=== PATIENT | male | born 1960 | race African-American/Black ===

== ENCOUNTER 2020-11-06 08:38 | Outpatient (REF) | payer OTHER, SELFPAY ==
[2020-11-06 11:13] LABS: MANUAL DIFF FLAG NO
[2020-11-06 11:38] LABS: Basophils Percent Auto 0.2 % (0-2); Eosinophils Absolute Auto 0.1 X10*3/uL (0.0-0.4); Eosinophils Percent Auto 1.9 % (0-4); Hematocrit 42.7 % (42-52); Hemoglobin 13.7 g/dl (14.0-18.0); Imm Gran Abs Auto 0.01 X10*3/uL (0.00-0.03); Imm Gran Pct Auto 0.2 % (0.0-0.4); Lymphocytes Absolute Auto 1.3 X10*3/uL (1.2-4.9); Lymphocytes Percent Auto 26.3 % (20-40); Mean Corpuscular HGB Conc 32.1 g/dl (31.0-36.0); Mean Corpuscular Volume 93.6 fL (80-98); Mean Platelet Volume 9.8 fL (9.4-12.4); Monocytes Absolute Auto 0.5 X10*3/uL (0.1-1.2); Monocytes Percent Auto 9.4 % (2-11); Platelet Count 178 X10*3/uL (160-400); Red Blood Count 4.56 X10*6/uL (4.60-5.80); Red Cell Distribution Width 12.4 % (11.0-16.0); White Blood Count 4.8 X10*3/uL (4.8-10.8)
[2020-11-06 11:40] LABS: Glucose Urine UA NEG (NEG); Leukocyte Esterase Urine NEG (NEG); Nitrite Urine NEG (NEG); Specific Gravity - Urine 1.025 (1.005-1.025); Urine Blood NEG (NEG); Urine Ketones NEG (NEG); Urine Protein NEG (NEG-TRACE)
[2020-11-06 11:49] LABS: Estimated Average Glucose 137 mg/dL; Hemoglobin A1c % 6.4 %
[2020-11-06 11:54] LABS: Alanine Aminotransferase 22 U/L (0-40); Albumin Level 4.5 g/dL (3.5-5.0); Alkaline Phosphatase 106 U/L (39-117); Anion Gap 13 (12-20); Aspartate Amino Transferase 21 U/L (5-37); Bilirubin Total 0.5 mg/dL (0.0-1.0); Blood Urea Nitrogen 15 mg/dL (9-16); Calcium 8.8 mg/dL (8.4-10.2); Carbon Dioxide 26 mmol/L (22-29); Chloride 107 mmol/L (96-108); Cholesterol 158 mg/dL; Estimated Glomerular Filt Rate > 60; Glucose Fasting 112 mg/dL (60-99); HDL Cholesterol 59 mg/dL; LDL Cholesterol Calculated 86 mg/dl; Potassium 4.1 mmol/L (3.3-5.1); Sodium 142 mmol/L (135-145); Total Protein 7.4 g/dL (6.5-8.0); Triglycerides 65 mg/dL
[2020-11-06 11:56] LABS: Color Urine YELLOW
[2020-11-06 11:57] LABS: Appearance Urine CLEAR
[2020-11-06 12:09] LABS: RBC Urine 0 /HPF (0); WBC Urine 0 /HPF (0-4)
[2020-11-06 12:17] LABS: Prostate Specific Antigen 2.01 ng/mL (<0.05-4.0); Thyroid Stimulating Hormone 1.62 uIU/mL (0.32-4.0); Vitamin D 25-OH Total 37.3 ng/mL (>30)
[2020-11-06 12:19] LABS: Creatinine Urine 126.47 mg/dL; Microalbumin Urine < 5.0 mg/L
== END 2020-11-06 08:39 | disposition home or self-care (01) ==
LOC: HO.HMGCLDS 08:38
PROVIDERS: PCP Internal Medicine; Visit Provider Internal Medicine
DX: I10 Essential (primary) hypertension (principal); E78.00 Pure hypercholesterolemia, unspecified; J45.30 Mild persistent asthma, uncomplicated; E55.9 Vitamin D deficiency, unspecified; E66.09 Other obesity due to excess calories; Z68.39 Body mass index [BMI] 39.0-39.9, adult; Z12.5 Encounter for screening for malignant neoplasm of prostate
CPT/HCPCS: 36415; 80053; 80061; 81001; 82043; 82306; 83036; 84153; 84443; 85025

== ENCOUNTER 2021-06-26 08:04 | Outpatient (REF) | payer OTHER, SELFPAY ==
[2021-06-26 11:32] LABS: Appearance Urine CLEAR; Color Urine YELLOW; Glucose Urine UA NEG (NEG); Leukocyte Esterase Urine NEG (NEG); Nitrite Urine NEG (NEG); Urine Blood NEG (NEG); Urine Ketones NEG (NEG); Urine Protein NEG (NEG-TRACE)
[2021-06-26 11:37] LABS: MANUAL DIFF FLAG NO
[2021-06-26 11:42] LABS: Mucus Urine 1+ /LPF; Squamous Epithelial Cell Urine 1+ /LPF; WBC Urine 0 /HPF (0-4)
[2021-06-26 11:54] LABS: Basophils Percent Auto 0.2 % (0-2); Eosinophils Absolute Auto 0.1 X10*3/uL (0.0-0.4); Eosinophils Percent Auto 1.6 % (0-4); Hematocrit 42.4 % (42-52); Hemoglobin 13.4 g/dl (14.0-18.0); Imm Gran Abs Auto 0.01 X10*3/uL (0.00-0.03); Imm Gran Pct Auto 0.2 % (0.0-0.4); Mean Corpuscular HGB Conc 31.6 g/dl (31.0-36.0); Mean Corpuscular Hemoglobin 29.6 pg (27.0-33.0); Mean Corpuscular Volume 93.6 fL (80-98); Mean Platelet Volume 10.3 fL (9.4-12.4); Monocytes Absolute Auto 0.5 X10*3/uL (0.1-1.2); Monocytes Percent Auto 10.7 % (2-11); Neutrophils Absolute Auto 2.7 X10*3/uL (2.0-8.3); Neutrophils Percent Auto 63.3 % (45-73); Platelet Count 190 X10*3/uL (160-400); Red Blood Count 4.53 X10*6/uL (4.60-5.80); Red Cell Distribution Width 12.6 % (11.0-16.0); White Blood Count 4.3 X10*3/uL (4.8-10.8)
[2021-06-26 12:03] LABS: Alanine Aminotransferase 16 U/L (0-40); Albumin Level 4.4 g/dL (3.5-5.0); Alkaline Phosphatase 98 U/L (39-117); Anion Gap 12 (12-20); Aspartate Amino Transferase 23 U/L (5-37); Bilirubin Total 0.4 mg/dL (0.0-1.0); Blood Urea Nitrogen 11 mg/dL (9-16); Calcium 9.3 mg/dL (8.4-10.2); Carbon Dioxide 27 mmol/L (22-29); Chloride 106 mmol/L (96-108); Cholesterol 138 mg/dL; Estimated Glomerular Filt Rate > 60; Glucose Fasting 122 mg/dL (60-99); HDL Cholesterol 54 mg/dL; LDL Cholesterol Calculated 74 mg/dl; Potassium 4.7 mmol/L (3.3-5.1); Sodium 140 mmol/L (135-145); Total Protein 7.1 g/dL (6.5-8.0); Triglycerides 54 mg/dL
[2021-06-26 12:07] LABS: Creatinine Urine 216.72 mg/dL; Microalbum/Creatinine Ratio Ur 8.3 ug/mg cr
[2021-06-26 12:29] LABS: Estimated Average Glucose 126 mg/dL
== END 2021-06-26 08:05 | disposition home or self-care (01) ==
LOC: HO.HMGCLDS 08:04
PROVIDERS: PCP Internal Medicine; Visit Provider Internal Medicine
DX: Z00.00 Encounter for general adult medical examination without abnormal findings (principal); I10 Essential (primary) hypertension; E78.00 Pure hypercholesterolemia, unspecified; E55.9 Vitamin D deficiency, unspecified; E66.09 Other obesity due to excess calories
CPT/HCPCS: 36415; 80053; 80061; 81001; 82043; 83036; 85025

== ENCOUNTER → 2021-07-11 15:40 | Outpatient (BNVA) | payer OTHER, SELFPAY | PROVIDERS: PCP Internal Medicine; Visit Provider Internal Medicine ==

== ENCOUNTER → 2021-09-23 13:38 | Outpatient (BNVA) | payer OTHER, SELFPAY | PROVIDERS: PCP Internal Medicine; Visit Provider Internal Medicine ==

== ENCOUNTER → 2021-10-15 15:49 | Outpatient (REF) | payer OTHER, SELFPAY | LOC: HO.SL 15:49 | PROVIDERS: PCP Internal Medicine; Visit Provider Internal Medicine | DX: G47.33 Obstructive sleep apnea (adult) (pediatric) (principal); E66.9 Obesity, unspecified; Z99.89 Dependence on other enabling machines and devices | CPT/HCPCS: 95806 ==

== ENCOUNTER 2022-08-16 11:08 | Emergency (ER) | payer OTHER, SELFPAY ==
--- NOTE | ~2022-08-16 | CT_ITS ---
EXAMINATION: CT ABDOMEN AND PELVIS WITHOUT CONTRAST CLINICAL INFORMATION: Urinary retention. COMPARISON: None. TECHNIQUE: Multidetector volumetric imaging was performed from the superior aspect of the liver through the pubic symphysis. Sagittal and coronal reformatted images were obtained on the technologist's workstation. This CT examination was performed using dose optimization techniques as appropriate, variously including the following: *Automated exposure control *Adjustment of mA and/or kV according to patient size (this includes techniques or standardized protocols for targeted exams where dose is matched to indication/reason for exam; i.e. extremities or head) *Use of iterative reconstruction technique DLP: 928 mGy-cm FINDINGS: LUNG BASES: Small calcified granulomas in the right lung base image 174 and 118, series 4. No focal consolidation or pleural effusion. LIVER, GALLBLADDER, AND BILIARY TREE: Decreased attenuation of the liver parenchyma suggesting the presence of hepatic steatosis. There is a too small to characterize hypodensity in the left hepatic lobe (3:16). Normal appearance of the gallbladder. No biliary ductal dilatation. PANCREAS: Limited noncontrast examination, unremarkable. SPLEEN: Limited noncontrast examination, unremarkable. ADRENAL GLANDS: No adrenal nodule or mass. KIDNEYS AND URETERS: Limited noncontrast examination. No nephrolithiasis or hydronephrosis. No significant perinephric fat stranding. BLADDER: There is a Nevarez and balloon in place within a decompressed urinary bladder. Intraluminal air is nonspecific in the presence of the Nevarez. There are some questionable diffuse wall thickening but no significant perivesical fat stranding. GASTROINTESTINAL TRACT: The stomach and the small bowel are nondilated. Normal appendix. Colonic diverticulosis. No pericolonic inflammatory changes or evidence of bowel obstruction. ABDOMINAL WALL: No significant hernia is appreciated. LYMPH NODES: No pathologically enlarged lymph nodes. There are a few prominent nonspecific pelvic and retroperitoneal lymph nodes, for instance measuring 0.5 cm on the left pelvic sidewall (3:71), 0.8 cm on the right internal iliac region (3:72) and 0.6 cm at the level of the proximal right common iliac vasculature (3:56). VASCULAR: Limited noncontrast examination. There is scattered atherosclerotic disease. The abdominal aorta is of normal diameter. PELVIC VISCERA: Enlarged prostate measuring 6 cm transversely and 5.5 cm anterior to posterior. There is mild fat stranding in the pelvis adjacent to the seminal vesicles and prostate, for instance axial image 75 series 3. OSSEOUS STRUCTURES: Subtle increased sclerosis of the superior femoral heads bilaterally, suggesting some degree of avascular necrosis. Minimal heterogeneity of the right sacral alae adjacent to the SI joint, nonspecific, possibly degenerative. No destructive appearing osseous lesions. Multilevel degenerative changes of the spine with mild retrolisthesis of L5 on S1. CT/CT abdomen pelvis wo IV con IMPRESSION: Enlarged prostate with mild surrounding fat stranding, nonspecific. Recommend clinical correlation for prostatitis. This examination is not targeted for assessment of prostatic neoplasia. The urinary bladder is decompressed with a Nevarez in place. Intraluminal air is nonspecific in the setting of the Nevarez catheter. There is some questionable mild wall thickening, which could be seen with chronic outlet obstruction or cystitis, correlate clinically. There are a few prominent nonspecific pelvic and retroperitoneal lymph nodes. Attention on follow-up in subsequent examinations recommended. There is a too small to characterize hypodensity in the left hepatic lobe which statistically is favored to represent a cyst, however if clinically deemed appropriate, definite characterization could be obtained with an MR of the abdomen. Hepatic steatosis. Colonic diverticulosis but no findings to suspect acute diverticulitis.
[2022-08-16 11:10] VITALS: BP 144/83; PULSE 78; RESP 20; TEMP 36.6; O2SAT 98; BMI 32.3
--- NOTE | 2022-08-16 11:24 | ED_ITS ---
HPI - Male Genitourinary General Chief complaint: Urogenital-Male Stated complaint: painfull upon urination Time Seen by Provider: 08/16/22 11:24 Source: patient Mode of arrival: ambulatory Limitations: no limitations History of Present Illness HPI Narrative: 61 yo male at w/ PMHx of HTN and hyperlipidemia presenting complaining of urinary retention x2 days with suprapubic discomfort. Pt reports weak urinary stream beginning on around 11am with urinary output that has diminished consistently to no output since last night. Denies associated burning or pain on urination, blood in the urine, penile discharge, rashes or lesions in the genital area, recent infection, abd pain, lymph node enlargement, new sexual contacts, fevers, chills, back pain, or N/V/D. Denies known hx of BPH, prostatitis, or prostate cancer. Onset (ago): day(s) Related Data Home Medications Medication Instructions Recorded Confirmed albuterol sulfate 90 mcg/actuation 2 puff inhalation Q6H PRN 07/11/21 09/23/21 aerosol inhaler fluticasone 250 mcg-salmeterol 50 1 ea inhalation BID 07/11/21 09/23/21 mcg/dose blistr powdr for inhalation (Advair Diskus) simvastatin 40 mg tablet 40 mg PO BEDTIME 07/11/21 09/23/21 valsartan 160 mg tablet 160 mg PO DAILY 07/11/21 09/23/21 aspirin 81 mg tablet,delayed 81 mg PO DAILY 04/01/22 release loratadine 10 mg tablet (Claritin) 10 mg PO DAILY 04/01/22 Allergies Allergy/AdvReac Type Severity Reaction Status Date / Time Penicillins AdvReac Unknown unknown Verified 04/01/22 16:20 Review of Systems Review of Systems: Constitutional: No Fever, No Chills, No Fatigue, No Malaise ENT/Mouth: No Ear Pain, No Nasal Congestion, No sore throat, No Rhinorrhea, No Swallowing Difficulty Eyes: No Eye Pain, No Swelling, No Redness Cardiovascular: No Chest Pain, No SOB, No Edema, No Palpitations Respiratory: No Cough, No Sputum, No Dyspnea Gastrointestinal: No Nausea, No Vomiting, No Diarrhea, No Constipation, + Abdominal pain Genitourinary: No Dysuria, No Urinary Frequency, No Hematuria, No Urinary Incontinence/+retention, No Urgency, No Flank Pain, + Urinary Flow Changes Musculoskeletal: No joint pain, No Myalgias, No Joint Swelling Skin: No Skin Lesions, No rash Neuro: No Weakness, No Numbness, No Dizziness, No Headache Yes all other systems are reviewed and are negative Constitutional: Constitutional: Reports as per [facility] Past Medical History Attestation statement: The following information was validated with the patient. Medical History Asthma Obesity (BMI 30-39.9) KARLI on CPAP Thrush, oral Social History Social History Patient Tobacco Use Status: Never used Tobacco Advance Directives: No Advance Directives Information Provided: No Physical Exam Vital Signs: Vital Signs: Last Vital Signs Temp 98 F 08/16/22 11:10 Pulse 78 08/16/22 11:10 Resp 20 08/16/22 11:10 BP 144/83 H 08/16/22 11:10 Pulse Ox 98 08/16/22 11:10 O2 Del Method 08/16/22 11:10 BMI result Body Mass Index 32.3 Const: Other: Appears uncomfortable General: cooperative and healthy appearing Orientation/consciousness: patient oriented x3 Limitations: no limitations HEENT: Head: Yes normal to inspection Ears: hearing grossly normal bilaterally General nose exam: Normal external nose present Face and sinus: Yes normal facial exam Eyes: General: appearance normal, both eyes and all related structures EOM: EOMs intact bilaterally Neck: Neck: Yes normal visual inspection Chest: Chest palpation & inspection: normal inspection of the chest Resp: Effort & Inspection: normal respiratory effort and able to speak in complete sentences Auscultation: clear to auscultation bilaterally Cardio: Rate: regular rate Rhythm: regular rhythm Heart sounds: S1 normal heart sound present and S2 normal heart sound present GI: Inspection: Yes normal to inspection Palpation (GI): Soft to palpation, not firm, Tenderness to palpation present (GI) suprapubicly, no guarding and not rigid Auscultation: normal bowel sounds : General: No CVA tenderness Back/Spine/Pelvis: Back: No CVA tenderness Skin: General skin exam: no rashes or lesions noted Rashes: no rashes Wounds: no wounds Neuro: General: patient oriented x3 Gait exam (Neuro): Normal gait present Extrem: General: Yes normal to inspection Course Course Course Narrative: -bladder scan with 842 cc > Nevarez catheter placed with 800 cc immediate output -no leukocytosis. H&H stable. Labs otherwise unremarkable -UA with RBCs and blood, not infected 1416-- CT abdomen pelvis wo IV con IMPRESSION: Enlarged prostate with mild surrounding fat stranding, nonspecific. Recommend clinical correlation for prostatitis. This examination is not targeted for assessment of prostatic neoplasia. ? The urinary bladder is decompressed with a Nevarez in place. Intraluminal air is nonspecific in the setting of the Nevarez catheter. There is some questionable mild wall thickening, which could be seen with chronic outlet obstruction or cystitis, correlate clinically. ? There are a few prominent nonspecific pelvic and retroperitoneal lymph nodes. Attention on follow-up in subsequent examinations recommended. ? There is a too small to characterize hypodensity in the left hepatic lobe which statistically is favored to represent a cyst, however if clinically deemed appropriate, definite characterization could be obtained with an MR of the abdomen. ? Hepatic steatosis. ? Colonic diverticulosis but no findings to suspect acute diverticulitis. >> low suspicion for acute prostatitis. Will discharge patient home with leg bag and close Urology follow-up Medical Decision Making Medical Decision Making MDM Narrative: 61 yo male at w/ PMHx of HTN and hyperlipidemia presenting complaining of urinary retention x2 days with suprapubic discomfort. On exam vital signs stable, appears anxious/uncomfortable with mild suprapubic tenderness, no CVA tenderness. Concern for urinary retention. Rule out UTI vs obstructive uropathy or mass vs renal stone/pyelo Plan: Bladder scan, Nevarez catheter, UA, labs, CT AP Differential Diagnoses: Differential diagnosis Lab Attestation: I reviewed the patient's lab results. Discharge Plan Discharge Clinical Impression: Acute urinary retention Patient Disposition: Home, Self-Care Instructions: Urinary Retention in Men (ED), Nevarez Catheter Placement and Care (ED) Additional Instructions: Your blood work is reassuring. Your urine is not infected, does have some blood in it. Your CT scan shows an enlarged prostate which is likely the cause of her symptoms You also have some nonspecific pelvic and retroperitoneal lymph nodes and a likely hepatic cyst, please follow-up with her doctor in regards to this. YOU NEED TO HAVE UROLOGY FOLLOW-UP NEXT WEEK. If symptoms persist/recur, you develop abdominal pain, back pain, fever, nausea or vomiting return to the emergency department Prescriptions: No Action fluticasone propion-salmeterol [Advair Diskus] 250-50 mcg/dose blister with device 1 ea inhalation BID valsartan 160 mg tablet 160 mg PO DAILY simvastatin 40 mg tablet 40 mg PO BEDTIME albuterol sulfate 90 mcg/actuation HFA aerosol inhaler 2 puff inhalation Q6H PRN aspirin 81 mg tablet,delayed release (DR/EC) 81 mg PO DAILY loratadine [Claritin] 10 mg tablet 10 mg PO DAILY Referrals: [facility] [Provider Group] - 1 week Interventions: ED Discharge Assessment Last Done: 08/16/22 15:10 Discharge Date/Time: 08/16/22 15:11
[2022-08-16 12:27] LABS: Appearance Urine Clear; Color Urine Yellow; Glucose Urine UA Negative (Negative); Leukocyte Esterase Urine Negative (Negative); Nitrite Urine Negative (Negative); PH 5.5 (5.0-9.0); UMIC TRIGGER UACC YES; Urine Blood Small (1+) (Negative); Urine Ketones Negative (Negative); Urine Protein Negative (Neg-Trace)
[2022-08-16 12:33] LABS: Bacteria Urine None Seen (None Seen); Hyaline Casts Urine 0-2 /LPF (0-2); Squamous Epithelial Cell Urine 0-2 /HPF (0-2); WBC Urine 0-5 /HPF (0-5)
[2022-08-16 13:18] LABS: MANUAL DIFF FLAG NO
[2022-08-16 13:19] LABS: Basophils Percent Auto 0.3 % (0-2); Eosinophils Percent Auto 0.1 % (0-4); Hematocrit 38.8 % (42.0-52.0); Imm Gran Abs Auto 0.02 X10*3/uL (0.00-0.03); Imm Gran Pct Auto 0.3 % (0.0-0.4); Lymphocytes Absolute Auto 0.7 X10*3/uL (1.2-4.9); Lymphocytes Percent Auto 9.4 % (20-40); Mean Corpuscular HGB Conc 33.5 g/dl (31.0-36.0); Mean Corpuscular Hemoglobin 30.4 pg (27.0-33.0); Mean Corpuscular Volume 90.9 fL (80.0-98.0); Monocytes Absolute Auto 0.6 X10*3/uL (0.1-1.2); Monocytes Percent Auto 8.6 % (2-11); Neutrophils Absolute Auto 5.9 x10*3/uL (2.0-8.3); Neutrophils Percent Auto 81.3 % (45-73); Platelet Count 201 X10*3/uL (160-400); Red Blood Count 4.27 X10*6/uL (4.60-5.80); Red Cell Distribution Width 12.4 % (11.0-16.0); White Blood Count 7.3 X10*3/uL (4.8-10.8)
[2022-08-16 13:33] LABS: Alanine Aminotransferase 17 U/L (0-40); Albumin Level 4.2 g/dL (3.5-5.0); Alkaline Phosphatase 98 U/L (39-117); Anion Gap 15 (12-20); Aspartate Amino Transferase 22 U/L (5-37); Bilirubin Direct < 0.2 mg/dL (0.0-0.5); Bilirubin Total 0.3 mg/dL (0.0-1.0); Blood Urea Nitrogen 15 mg/dL (9-16); Calcium 9.2 mg/dL (8.4-10.2); Carbon Dioxide 21 mmol/L (22-29); Chloride 104 mmol/L (96-108); Creatinine Clr Calc Pharmacy 103.3; Estimated Glomerular Filt Rate > 60; Glucose Random 105 mg/dL (60-115); Magnesium 2.1 mg/dL (1.6-2.6); Potassium 4.2 mmol/L (3.3-5.1); Sodium 136 mmol/L (135-145); Total Protein 7.1 g/dL (6.5-8.0)
== END 2022-08-16 15:11 | disposition home or self-care (01) ==
PROVIDERS: Physician Assistant; Emergency Provider Emergency Medicine; PCP Internal Medicine
DX: N40.1 Benign prostatic hyperplasia with lower urinary tract symptoms (principal); R33.8 Other retention of urine; I10 Essential (primary) hypertension; E78.5 Hyperlipidemia, unspecified; Z79.02 Long term (current) use of antithrombotics/antiplatelets; Z79.82 Long term (current) use of aspirin; Z79.899 Other long term (current) drug therapy
CPT/HCPCS: 36415; 51702; 51798; 74176; 80048; 80076; 81001; 83735; 85025; 99284

== ENCOUNTER 2022-08-16 15:56 | Emergency (ER) | payer OTHER, SELFPAY ==
[2022-08-16 16:14] VITALS: PULSE 86; RESP 18; O2SAT 98; BMI 32.3
--- NOTE | 2022-08-16 16:14 | ED.GENADULT ---
HPI - General Adult General Chief complaint: Urogenital-Male <DODIE Calderón - Last Filed: 08/16/22 16:16> Stated complaint: bleeding from catheter site <DODIE Calderón - Last Filed: 08/16/22 16:16> Time Seen by Provider: 08/16/22 17:11 <DODIE Calderón - Last Filed: 08/16/22 16:16> Source: patient <Brittani Holley NP - Last Filed: 08/16/22 18:10> Mode of arrival: ambulatory <Brittani Holley NP - Last Filed: 08/16/22 18:10> Limitations: no limitations <Brittani Holley NP - Last Filed: 08/16/22 18:10> History of Present Illness HPI narrative: 61-year-old male who is seen earlier today for acute urinary retention with Nevarez catheter placement presents back to the emergency department with complaints of bleeding around his penis, a pulling sensation and discomfort. He reports urine is yellow, with no blood noted. He is concerned that the securing device may be placed in an area that is pulling the Nevarez catheter when he moves. <Brittani Holley NP - Last Filed: 08/16/22 18:10> Onset (ago): hour(s) <Brittani Holley NP - Last Filed: 08/16/22 18:10> Location: genitals <Brittani Holley NP - Last Filed: 08/16/22 18:10> Related Data Home medications: Home Medications Medication Instructions Recorded Confirmed albuterol sulfate 90 mcg/actuation 2 puff inhalation Q6H PRN 07/11/21 09/23/21 aerosol inhaler fluticasone 250 mcg-salmeterol 50 1 ea inhalation BID 07/11/21 09/23/21 mcg/dose blistr powdr for inhalation (Advair Diskus) simvastatin 40 mg tablet 40 mg PO BEDTIME 07/11/21 09/23/21 valsartan 160 mg tablet 160 mg PO DAILY 07/11/21 09/23/21 aspirin 81 mg tablet,delayed 81 mg PO DAILY 04/01/22 release loratadine 10 mg tablet (Claritin) 10 mg PO DAILY 04/01/22 <DODIE Calderón - Last Filed: 08/16/22 16:16> Allergies/adverse reactions: Allergies Allergy/AdvReac Type Severity Reaction Status Date / Time Penicillins AdvReac Unknown unknown Verified 04/01/22 16:20 <DODIE Calderón - Last Filed: 08/16/22 16:16> Review of Systems Review of Systems: In addition to documented HPI above, the additional ROS was obtained: Constitutional: No Weight loss, No Fever, No Chills ENT/Mouth: No Ear Pain, No Nasal Congestion, No Sinus Pain, No Hoarseness, No sore throat, No Rhinorrhea, No Swallowing Difficulty Cardiovascular: No Chest Pain, No SOB Respiratory: No Cough, No Sputum, No Wheezing Gastrointestinal: No Nausea, No Vomiting, No Diarrhea, No Constipation, No Abdominal pain Genitourinary: No Dysuria, No Urgency, No Flank Pain Musculoskeletal: No joint pain, No Myalgias, No Joint Swelling Skin: No Skin Lesions, No rash Neuro: No Weakness, No Numbness, No Paresthesias <Brittani Holley NP - Last Filed: 08/16/22 18:10> Yes all other systems are reviewed and are negative <Brittani Holley NP - Last Filed: 08/16/22 18:10> [facility], LAT[facility] Past Medical History Attestation statement: The following information was validated with the patient. <Brittani Holley NP - Last Filed: 08/16/22 18:10> Source: old records reviewed <Brittani Holley NP - Last Filed: 08/16/22 18:10> Medical History: Medical History Asthma Obesity (BMI 30-39.9) KARLI on CPAP Thrush, oral <DODIE Calderón Last Filed: 08/16/22 16:16> Social History Social History: Social History Patient Tobacco Use Status: Never used Tobacco Advance Directives: No Advance Directives Information Provided: No <DODIE Calderón - Last Filed: 08/16/22 16:16> Physical Exam ED Vital Signs: Vital Signs - 24 hr 08/16/22 16:14 Pulse Rate 86 Respiratory Rate 18 Pulse Oximetry 98 Oxygen Delivery Method Room Air BMI result Body Mass Index 32.3 <DODIE Calderón - Last Filed: 08/16/22 16:16> Vital Signs - 24 hr 08/16/22 16:14 Pulse Rate 86 Respiratory Rate 18 Pulse Oximetry 98 Oxygen Delivery Method Room Air BMI result Body Mass Index 32.3 <Brittani Holley POWER SYSTEM DISPATCHER - Last Filed: 08/16/22 18:10> Const General: cooperative, no acute distress, alert and awake <Brittani Holley POWER SYSTEM DISPATCHER - Last Filed: 08/16/22 18:10> Nutritional Appearance: well nourished <Brittani Holley POWER SYSTEM DISPATCHER - Last Filed: 08/16/22 18:10> Orientation/consciousness: patient oriented x3 <Brittani Holley POWER SYSTEM DISPATCHER - Last Filed: 08/16/22 18:10> Limitations: no limitations <Brittani Holley POWER SYSTEM DISPATCHER - Last Filed: 08/16/22 18:10> HENMT Head: Yes normal to inspection <Brittani Holley POWER SYSTEM DISPATCHER - Last Filed: 08/16/22 18:10> Eyes General: appearance normal, both eyes and all related structures <Brittani Holley POWER SYSTEM DISPATCHER - Last Filed: 08/16/22 18:10> Neck Neck: Yes normal visual inspection and Yes full ROM <Brittani Holley POWER SYSTEM DISPATCHER - Last Filed: 08/16/22 18:10> Resp Effort & Inspection: normal respiratory effort and not labored <Brittani Holley POWER SYSTEM DISPATCHER - Last Filed: 08/16/22 18:10> Auscultation: clear to auscultation bilaterally, no crackles, no rhonchi and no wheezes <Brittani Holley POWER SYSTEM DISPATCHER - Last Filed: 08/16/22 18:10> Cardio Rate: regular rate <Brittani Holley POWER SYSTEM DISPATCHER - Last Filed: 08/16/22 18:10> Rhythm: regular rhythm <Brittani Holley POWER SYSTEM DISPATCHER - Last Filed: 08/16/22 18:10> Male General Exam: Yes normal external exam <Brittani Holley NP - Last Filed: 08/16/22 18:10> Penis: normal penis <Brittani Holley NP - Last Filed: 08/16/22 18:10> Meatus: Blood at meatus present <Brittani Holley NP - Last Filed: 08/16/22 18:10> Neuro General: patient oriented x3, gait normal and moves all extremities <Brittani Holley NP - Last Filed: 08/16/22 18:10> Extrem General: Yes normal to inspection, Yes full ROM and Yes capillary refill normal <Brittani Holley NP - Last Filed: 08/16/22 18:10> Course Course Course Narrative: RME: 61 year old male hx of BPH presents w/ bleeding around catheter site. Was DC earlier today from [facility] ED. Comes w/ red tinged urine in leg bag PE- bleeding around the meatus of penis Plan- may need irrigation <DODIE Calderón - Last Filed: 08/16/22 16:16> Medical Decision Making Medical Decision Making MDM Narrative: 61-year-old male who is seen earlier today for acute urinary retention with Nevarez catheter placement presents back to the emergency department with complaints of bleeding around his penis, a pulling sensation and discomfort. Catheter securement device removed and replaced at and more comfortable place for patient. Educated that bleeding at the meatus after catheter insertion can be a common occurrence if catheter is rubbing, pulling at the meatus or if there was difficult insertion due to size in prostate. Educated to return to the emergency department if large amount of bleeding at meatus, purulent drainage at around Nevarez catheter, catheter is not draining, catheter gets pulled out or dislodged, or any other concerning symptom. Recommended to follow-up with Urology and primary care provider for further treatment and management. <Brittani Holley NP - Last Filed: 08/16/22 18:10> Discharge Plan Discharge Clinical Impression: Nevarez catheter in place <DODIE Calderón Last Filed: 08/16/22 16:16> Patient Disposition: Home, Self-Care <DODIE Calderón - Last Filed: 08/16/22 16:16> Instructions: Nevarez Catheter Placement and Care (ED) <DODIE Calderón - Last Filed: 08/16/22 16:16> Prescriptions: No Action fluticasone propion-salmeterol [Advair Diskus] 250-50 mcg/dose blister with device 1 ea inhalation BID valsartan 160 mg tablet 160 mg PO DAILY simvastatin 40 mg tablet 40 mg PO BEDTIME albuterol sulfate 90 mcg/actuation HFA aerosol inhaler 2 puff inhalation Q6H PRN aspirin 81 mg tablet,delayed release (DR/EC) 81 mg PO DAILY loratadine [Claritin] 10 mg tablet 10 mg PO DAILY <DODIE Calderón - Last Filed: 08/16/22 16:16> Referrals: Christopher Thayer MD [Physician] - <DODIE Calderón - Last Filed: 08/16/22 16:16> Interventions: ED Discharge Assessment Last Done: 08/16/22 17:36 <DODIE Calderón - Last Filed: 08/16/22 16:16> Discharge Date/Time: 08/16/22 17:37 <DODIE Calderón - Last Filed: 08/16/22 16:16> Print Language: Indonesian <DODIE Calderón - Last Filed: 08/16/22 16:16>
--- NOTE | 2022-08-16 17:25 | ED.MALEGU ---
HPI - Male Genitourinary General Chief complaint: Urogenital-Male Stated complaint: bleeding from catheter site Time Seen by Provider: 08/16/22 17:11 Related Data Home Medications Medication Instructions Recorded Confirmed albuterol sulfate 90 mcg/actuation 2 puff inhalation Q6H PRN 07/11/21 09/23/21 aerosol inhaler fluticasone 250 mcg-salmeterol 50 1 ea inhalation BID 07/11/21 09/23/21 mcg/dose blistr powdr for inhalation (Advair Diskus) simvastatin 40 mg tablet 40 mg PO BEDTIME 07/11/21 09/23/21 valsartan 160 mg tablet 160 mg PO DAILY 07/11/21 09/23/21 aspirin 81 mg tablet,delayed 81 mg PO DAILY 04/01/22 release loratadine 10 mg tablet (Claritin) 10 mg PO DAILY 04/01/22 Allergies Allergy/AdvReac Type Severity Reaction Status Date / Time Penicillins AdvReac Unknown unknown Verified 04/01/22 16:20 [facility] Past Medical History Medical History Asthma Obesity (BMI 30-39.9) KARLI on CPAP Thrush, oral Social History Social History Patient Tobacco Use Status: Never used Tobacco Advance Directives: No Advance Directives Information Provided: No Physical Exam Vital Signs: Vital Signs: Last Vital Signs Pulse 86 08/16/22 16:14 Resp 18 08/16/22 16:14 Pulse Ox 98 08/16/22 16:14 O2 Del Method 08/16/22 16:14 BMI result Body Mass Index 32.3 Discharge Plan Discharge Clinical Impression: Nevarez catheter in place Patient Disposition: Home, Self-Care Instructions: Nevarez Catheter Placement and Care (ED) Prescriptions: No Action fluticasone propion-salmeterol [Advair Diskus] 250-50 mcg/dose blister with device 1 ea inhalation BID valsartan 160 mg tablet 160 mg PO DAILY simvastatin 40 mg tablet 40 mg PO BEDTIME albuterol sulfate 90 mcg/actuation HFA aerosol inhaler 2 puff inhalation Q6H PRN aspirin 81 mg tablet,delayed release (DR/EC) 81 mg PO DAILY loratadine [Claritin] 10 mg tablet 10 mg PO DAILY Referrals: Christopher Thayer MD [Physician] - Print Language: Icelandic
== END 2022-08-16 17:37 | disposition home or self-care (01) ==
PROVIDERS: Emergency Provider Emergency Medicine Emergency Medical Services; PCP Internal Medicine
DX: Z71.1 Person with feared health complaint in whom no diagnosis is made (principal); Z46.6 Encounter for fitting and adjustment of urinary device
CPT/HCPCS: 99282

== ENCOUNTER → 2022-08-29 08:52 | Outpatient (BNVA) | payer OTHER, SELFPAY | PROVIDERS: PCP Internal Medicine; Visit Provider Urology | DX: R33.8 Other retention of urine (principal); Z97.8 Presence of other specified devices | CPT/HCPCS: 51700; 51798 ==

== ENCOUNTER → 2022-09-30 15:54 | Outpatient (BNVA) | payer OTHER, SELFPAY | PROVIDERS: PCP Internal Medicine; Visit Provider Internal Medicine | DX: Z13.89 Encounter for screening for other disorder (principal) ==

== ENCOUNTER 2022-10-10 17:22 | Outpatient (REF) | payer OTHER, SELFPAY ==
--- NOTE | ~2022-10-10 | XR_ITS ---
EXAMINATION: XR HIP, RIGHT CLINICAL INFORMATION: Pain COMPARISON: None TECHNIQUE: Two views of the right hip. AP pelvis one view FINDINGS: AP pelvis: There is normal symmetry of bilateral hip joints and SI joints no visible fracture or bony erosive changes seen. There are small enthesophytes along the bilateral greater trochanter. Right hip: There is minimal joint space is normal. No visible acute fracture or dislocation seen. There are small enthesophytes along the greater trochanter. XR/XR hip RT w PEL1V IMPRESSION: 1. No acute fracture or dislocation AP pelvis or the right hip. 2. There are small enthesophytes along the greater trochanter. Question calcific bursitis No visible acute fracture or dislocation seen.
== END 2022-10-10 17:23 | disposition home or self-care (01) ==
LOC: HO.HOSX 17:22
PROVIDERS: Visit Provider Physician Assistant
DX: R33.9 Retention of urine, unspecified (principal); M16.11 Unilateral primary osteoarthritis, right hip
CPT/HCPCS: 51798; 73502

== ENCOUNTER 2022-10-30 12:42 | Outpatient (REF) | payer OTHER, SELFPAY ==
--- NOTE | ~2022-10-30 | FL_ITS ---
EXAMINATION: FL ARTHROGRAM HIP, RIGHT CLINICAL INFORMATION: Right hip steroid injection. COMPARISON: Right hip x-ray 10/10/2022. TECHNIQUE/FINDINGS: The procedure, risks and benefits including bleeding and infection were discussed with the patient and informed consent was obtained. The right hip was prepped and draped in the usual sterile fashion. The skin and soft tissues were anesthetized with 1% lidocaine plain. Using fluoroscopic guidance and a 22-gauge spinal needle, access to the right hip joint was obtained. 1-2 mL of Omnipaque 300 contrast was injected fluoroscopically confirming adequate placement in the joint space. Subsequently, 8 mL of 1% lidocaine plain and 1 mg Depo-medrol was injected into the right hip joint. FLUOROSCOPY TIME: 0.4 minutes DOSE AREA PRODUCT: 4.1 Gy-cm2 TOTAL DOSE: 30 mGy FLUOROSCOPIC IMAGES: 2 saved fluoroscopic images FL/FL arthrogram hip RT IMPRESSION: Therapeutic right hip injection.
== END 2022-10-30 12:43 | disposition home or self-care (01) ==
LOC: HO.XRAY 12:42
PROVIDERS: PCP Internal Medicine; Visit Provider Physician Assistant
DX: M16.11 Unilateral primary osteoarthritis, right hip (principal)
CPT/HCPCS: 27093; 73525

== ENCOUNTER 2022-11-21 09:54 | Outpatient (REF) | payer OTHER, SELFPAY ==
--- NOTE | ~2022-11-21 | XR_ITS ---
EXAMINATION: XR SHOULDER, RIGHT CLINICAL INFORMATION: Pain. COMPARISON: None available. TECHNIQUE: AP neutral, scapula Y, and axillary views of the right shoulder. FINDINGS: Bony alignment and mineralization are normal. The glenohumeral joint is intact. The acromioclavicular and coracoclavicular intervals are normal. There is mild osteoarthritic change of the acromioclavicular joint. No fracture or dislocation is seen. There is mild calcific tendinitis of the right rotator cuff insertion. No foreign body is seen. There is no right pneumothorax. XR/XR shoulder RT min 2V IMPRESSION: 1. There is mild calcific tendinitis of the right rotator cuff insertion. 2. There is mild osteoarthritic change of the right acromioclavicular joint.
--- NOTE | ~2022-11-21 | XR_ITS ---
EXAMINATION: XR SHOULDER, LEFT CLINICAL INFORMATION: Pain. COMPARISON: Radiographs dated 07/10/2016. TECHNIQUE: AP neutral, scapula Y and axillary views of the left shoulder are submitted. FINDINGS: The bones and soft tissues are normal. No fracture. Glenohumeral and acromioclavicular alignment is anatomic with normal joint space. There is mild osteoarthritic change of the glenohumeral and acromioclavicular joints. No abnormal soft tissue calcifications. XR/XR shoulder LT min 2V IMPRESSION: There is mild osteoarthritic change of the left glenohumeral and acromioclavicular joints. No fracture or dislocation is seen.
== END 2022-11-21 09:55 | disposition home or self-care (01) ==
LOC: HO.HOSX 09:54
PROVIDERS: Visit Provider Physician Assistant
DX: M75.101 Unspecified rotator cuff tear or rupture of right shoulder, not specified as traumatic (principal); M75.102 Unspecified rotator cuff tear or rupture of left shoulder, not specified as traumatic
CPT/HCPCS: 20610; 73030; J1040

== ENCOUNTER → 2022-12-16 14:51 | Outpatient (BNVA) | payer OTHER, SELFPAY | PROVIDERS: PCP Internal Medicine; Visit Provider Urology | DX: Z13.89 Encounter for screening for other disorder (principal) ==

== ENCOUNTER 2022-12-23 10:04 | Day surgery (SDC) | payer OTHER, SELFPAY ==
--- NOTE | 2022-12-19 14:12 | HO.ANESPROP2 ---
Documented by User: Karina Coburn NP 12/19/22 14:14 HPI - Anesthesia Eval Consult details Narrative: 62yo M for Colonoscopy PMFSH Active Problems Active Problems: All Active Problems (Updated 12/19/22 @ 13:07 by Bety Watson RN) Osteoarthritis of right hip (Acute) Urinary retention with incomplete bladder emptying (Acute) Painful arc syndrome of right shoulder (Acute) Painful arc syndrome of left shoulder (Acute) Thrush, oral (Acute) Asthma (Acute) KARLI on CPAP (Acute) Obesity (BMI 30-39.9) (Acute) Past Medical History Medical History (Updated 12/19/22 @ 13:07 by Bety Watson RN) Asthma BPH (benign prostatic hyperplasia) Diverticulosis Elevated cholesterol HTN (hypertension) Obesity (BMI 30-39.9) KARLI on CPAP Thrush, oral Urinary retention Surgical History Surgical History (Updated 12/19/22 @ 13:07 by Bety Watson RN) H/O colonoscopy Social History Social History Patient Tobacco Use Status: Never used Tobacco Are you DNR?: No Advance Directives: No Advance Directives Information Provided: Yes Meds Allergies Allergy/AdvReac Type Severity Reaction Status Date / Time Seasonal Allergies Allergy Unknown Verified 12/19/22 13:04 Penicillins AdvReac Unknown unknown Verified 12/16/22 14:53 Home Medications Medication Instructions Recorded Confirmed Last Taken Type fluticasone 250 mcg-salmeterol 50 1 ea inhalation BID 07/11/21 12/16/22 Unknown History mcg/dose blistr powdr for inhalation (Advair Diskus) simvastatin 40 mg tablet 40 mg PO BEDTIME 07/11/21 12/16/22 Unknown History valsartan 160 mg tablet 160 mg PO DAILY 07/11/21 12/16/22 Unknown History aspirin 81 mg tablet,delayed 81 mg PO DAILY 04/01/22 12/16/22 12/16/22 History release loratadine 10 mg tablet (Claritin) 10 mg PO DAILY 04/01/22 12/16/22 Unknown History Exam Exam Date and Time: December 19, 2022 1412 Pertinent Lab Results Pertinent Lab Results: Laboratory Tests 08/16/22 08/16/22 13:14 13:14 WBC 7.3 Hgb 13.0 L Hct 38.8 L Plt Count 201 Sodium 136 Potassium 4.2 Chloride 104 Carbon Dioxide 21 L BUN 15 Creatinine 0.91 Assessment and Plan Assessment Anesthesia Assessment: Chart Reviewed Documented by User: Shruthi Tatum MD 12/23/22 11:37 ON LICENSE OF [facility] Past Medical History Medical History (Updated 12/19/22 @ 13:07 by Bety Watsno, REGAN) Asthma BPH (benign prostatic hyperplasia) Diverticulosis Elevated cholesterol HTN (hypertension) Obesity (BMI 30-39.9) KARLI on CPAP Thrush, oral Urinary retention Family History Family history of problems with anesthesia: No Surgical History Surgical History (Updated 12/19/22 @ 13:07 by Bety Watson RN) H/O colonoscopy History of Problems with Anesthesia: No Social History Social History Patient Tobacco Use Status: Never used Tobacco Are you DNR?: No Advance Directives: No Advance Directives Information Provided: Yes Meds Allergies Allergy/AdvReac Type Severity Reaction Status Date / Time Seasonal Allergies Allergy Unknown Verified 12/19/22 13:04 Penicillins AdvReac Unknown unknown Verified 12/16/22 14:53 Home Medications Medication Instructions Recorded Confirmed Last Taken Type fluticasone 250 mcg-salmeterol 50 1 ea inhalation BID 07/11/21 12/16/22 Unknown History mcg/dose blistr powdr for inhalation (Advair Diskus) simvastatin 40 mg tablet 40 mg PO BEDTIME 07/11/21 12/16/22 Unknown History valsartan 160 mg tablet 160 mg PO DAILY 07/11/21 12/16/22 Unknown History aspirin 81 mg tablet,delayed 81 mg PO DAILY 04/01/22 12/16/22 12/16/22 History release loratadine 10 mg tablet (Claritin) 10 mg PO DAILY 04/01/22 12/16/22 Unknown History Exam Airway Mallampati Class: II TM Dist: >3cm Neck ROM: Full Assessment and Plan Assessment Anesthesia Assessment: Anesthesia Plan Discussed Final Anesthetic Review Family History of Problems with Anesthesia: No History of Problems with Anesthesia: No NPO: Yes ASA Class: III Final Preanesthetic Review: No Changes in Pt Med Stat, Meds/Allgs Chart Reviewed, Consent Obtained/Reviewed and Anes Risks/Benef Reviewed Patient Risk: Intermediate Procedure Risk: Low Anesthetic Plan Anesthetic Plan: MAC: Disposition: Standard PACU
[2022-12-23 08:58] VITALS: BMI 31.3
[2022-12-23 10:12] VITALS: BP 144/79; PULSE 68; RESP 20; TEMP 36.3; O2SAT 99
[2022-12-23] MEDS: Lactated Ringers 1,000 ML 100 ML IVCONT (10:36)
--- NOTE | 2022-12-23 11:35 | MHC.SHP ---
Pre-Procedural Eval Section A Date of Service: 12/23/22 Section B Chief Complaint: Encounter for screening for malignant neoplasm of Details of Present Illness: see H&P no changes Relevant Family History (Specify if Yes): No Relevant Social History: None Present Medications: None Medical History: No relevant PMH Allergies: Allergies Allergy/AdvReac Type Severity Reaction Status Date / Time Seasonal Allergies Allergy Unknown Verified 12/19/22 13:04 Penicillins AdvReac Unknown unknown Verified 12/16/22 14:53 Review of Systems Sugical H&P ROS: Negative: Constitution, Cardiovascular, Respiratory, Neurological, Psychiatric, Hem-Onc, Allergic/Immunologic, Gastrointestinal, Genitourinary, Musculoskeletal, Integumentary, Endocrine and Eyes/Ears/Nose/Throat Exam Surgical H&P Exam: Normal: HEENT, Normal: Heart, Normal: Lungs, Normal: Extremities, Normal: Abdomen, Normal: Skin and Normal: Neurological Plan Diagnosis/Plan: Unchanged I have reviewed the history and physical and performed a pertinent physical examination on my patient. No changes have occurred unless specified. Time Spent With Patient Time: Total time managing care of this patient today ____ minutes.
[2022-12-23 12:08] VITALS: BP 108/56; PULSE 74; RESP 17; TEMP 36.6; O2SAT 98
[2022-12-23 12:23] VITALS: BP 124/75; PULSE 70; RESP 18; TEMP 37; O2SAT 100
--- NOTE | 2022-12-23 13:37 | OP_ITS ---
DATE OF SERVICE: 12/23/2022 SURGEON: Timothy Arthur MD INDICATIONS: Colon cancer screening. PREOPERATIVE DIAGNOSIS: POSTOPERATIVE DIAGNOSIS: PROCEDURE PERFORMED: Colonoscopy to the terminal ileum. ESTIMATED BLOOD LOSS: COMPLICATIONS: ANESTHESIA: Monitored anesthesia care. ASSISTANTS: SPECIMENS: DESCRIPTION OF PROCEDURE: A history and physical was performed. The risks and benefits of the procedure were explained to the patient. Informed consent was obtained. The patient was placed in the left lateral decubitus position. A digital rectal exam was performed and was found to be normal. The Olympus pediatric video colonoscope was introduced into the rectum and advanced to the cecum without difficulty. The cecum was identified by transillumination, palpation, and identification of ileocecal valve. Examination was performed. The scope was removed. He tolerated the procedure well and was returned to the recovery area in stable condition. FINDINGS: The terminal ileum was examined and appeared normal. The visualized colonic mucosa was normal. The quality of the prep was good. No polyps were identified. There was moderate sigmoid diverticulosis. Retroflexed examination showed moderate sized internal hemorrhoids. IMPRESSION: Normal colonoscopy. RECOMMENDATION: 1. Follow up as needed. 2. Repeat colonoscopy is recommended in 10 years for average risk individuals. MD NATALIA Real/MISTI / [id number]
== END 2022-12-23 13:40 | disposition home or self-care (01) ==
PROVIDERS: PCP Internal Medicine; Visit Provider Internal Medicine Gastroenterology
PROC: 0DJD8ZZ Inspection of Lower Intestinal Tract, Via Natural or Artificial Opening Endoscopic (ICD-10-PCS; CPT 45378; principal; 2022-12-23 10:40)
DX: Z12.11 Encounter for screening for malignant neoplasm of colon (principal); K57.30 Diverticulosis of large intestine without perforation or abscess without bleeding; K64.8 Other hemorrhoids; N40.1 Benign prostatic hyperplasia with lower urinary tract symptoms; R33.8 Other retention of urine; I10 Essential (primary) hypertension; E78.00 Pure hypercholesterolemia, unspecified; J45.909 Unspecified asthma, uncomplicated; G47.33 Obstructive sleep apnea (adult) (pediatric); Z79.51 Long term (current) use of inhaled steroids; Z79.82 Long term (current) use of aspirin; Z79.899 Other long term (current) drug therapy; Z88.0 Allergy status to penicillin
CPT/HCPCS: 45378

== ENCOUNTER → 2023-01-02 11:20 | Outpatient (BNVA) | payer OTHER, SELFPAY | PROVIDERS: PCP Internal Medicine; Visit Provider Urology | DX: R33.9 Retention of urine, unspecified (principal) | CPT/HCPCS: 51798 ==

== ENCOUNTER → 2023-01-15 08:52 | Outpatient (BNVA) | payer OTHER, SELFPAY | PROVIDERS: PCP Internal Medicine; Visit Provider Urology | DX: R33.9 Retention of urine, unspecified (principal) | CPT/HCPCS: 51798 ==

== ENCOUNTER 2023-06-19 11:21 | Outpatient (AMB) | payer OTHER, SELFPAY ==
--- NOTE | 2023-06-19 11:32 | A.OFFVIS_ITS ---
Intake Intake Visit Reasons: 6m/PVR Intake Note: Patient is present for PVR Urology Med: Terazosin Antibiotic Allergy: Penicillins Blood Thinner: Aspirin PVR: 43ML Allergies Seasonal Allergies Allergy (Verified 12/19/22 13:04) Unknown Penicillins Adverse Reaction (Unknown, Verified 12/16/22 14:53) unknown Medication List - Last Reconciled 06/19/23 by Christopher Thayer MD aspirin 81 mg PO DAILY fluticasone propion-salmeterol 250-50 mcg/dose (Advair Diskus) 1 ea inhalation BID loratadine (Claritin) 10 mg PO DAILY simvastatin 40 mg PO BEDTIME terazosin 10 mg PO BEDTIME 90 days valsartan 160 mg PO DAILY HPI HPI Comments History of Present Illness Details Henrique is a pleasant male. He is a patient Dr. Fang. 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 [place] Lower urinary tract symptoms Current medications include terazosin 5 mg Seen August 2022 for urinary retention 800 cc and Nevarez catheter placement, ewa ging showed enlarged prostate PSA 11/25 2.1 PFSH Medical History (Updated 12/19/22 @ 13:07 by Bety Watson RN) Urinary retention BPH (benign prostatic hyperplasia) Elevated cholesterol Diverticulosis HTN (hypertension) Thrush, oral Asthma KARLI on CPAP Obesity (BMI 30-39.9) Surgical History (Updated 12/19/22 @ 13:07 by Bety Watson RN) H/O colonoscopy Social History Patient Tobacco Use Status: Never used Tobacco Review of Systems Const Denies chills and Denies fever(s) Card Reports no additional complaints and Denies syncope Resp Denies cough GI Denies abdominal pain and Denies heartburn Reports as per HPI and Denies change in libido Neuro Denies syncope Psych Denies change in libido Endo Denies change in libido Physical Exam Const General: cooperative, healthy appearing, comfortable and no acute distress Orientation/consciousness: patient oriented x3 HEENT Face and sinus: Yes normal facial exam Mouth: moist mucous membranes Neck Neck: Yes normal visual inspection, Yes full ROM and Yes trachea midline Chest Chest palpation & inspection: normal inspection of the chest Resp Effort & Inspection: normal respiratory effort, able to speak in complete sentences and no respiratory distress GI Inspection: Yes normal to inspection Back/Spine/Pelvis Cervical Spine: normal cervical lordosis Thoracic/Lumbar Spine: thoracic and lumbar spine normal to inspection Skin General skin exam: no rashes or lesions noted Neuro General: patient oriented x3, gait normal, tone normal and moves all extremities Extrem General: Yes normal to inspection and Yes capillary refill normal Office Procedures Post Void Residual Post Residual Void Post Void Residual (PVR): 43 [id number] Void Residual by ultrasound Results AMB Urinalysis, Automated UA Leukoctes 70 Richard/uL Last Edit by Sandy Willson [facility] on 06/19/23 11:43 UA Nitrite Negative Last Edit by Sandy Willson [facility] on 06/19/23 11:43 UA Urobilinogen 0.2 mg/dL Last Edit by Sandy Willson [facility] on 06/19/23 11:4 3 UA Protein 0 mg/dL Last Edit by Sandy Willson [facility] on 06/19/23 11:43 UA pH 5.5 Last Edit by Sandy Willson [facility] on 06/19/23 11:43 UA Blood 0 Jhon/uL Last Edit by Sandy Willson [facility] on 06/19/23 11:43 UA Specific [place] 1.020 Last Edit by Sandy Willson [facility] on 06/19/23 11: 43 UA Ketone Negative Last Edit by Sandy Willson [facility] on 06/19/23 11:43 UA Bilirubin 0 mg/dL Last Edit by Sandy Willson [facility] on 06/19/23 11:43 UA Glucose 0 mg/dL Last Edit by Sandy Willson [facility] on 06/19/23 11:43 Results Reviewed Results Reviewed: Laboratory Last Values Urine pH (Auto) 5.5 06/19/23 11:41 Specific [place] (Auto) 1.020 06/19/23 11:41 Urine Protein (Auto) 0 mg/dL 06/19/23 11:41 Glucose (UA)(Auto) 0 mg/dL 06/19/23 11:41 Urine Ketones (Auto) Negative 06/19/23 11:41 Urine Blood (Auto) 0 Jhon/uL 06/19/23 11:41 Urine Nitrite (Auto) Negative 06/19/23 11:41 Urine Bilirubin (Auto) 0 mg/dL 06/19/23 11:41 Urine Urobilinogen (Auto) 0.2 mg/dL 06/19/23 11:41 Leukocyte Esterase (Auto) 70 Richard/uL 06/19/23 11:41 Assessment & Plan Assessment & Plan (1) Urinary retention with incomplete bladder emptying: Code(s): R33.9 - Retention of urine, unspecified Plan 12 month follow-up Orders: Orders AMB Post Void Residual by ultrasound 06/19/23 R33.9 - Retention of urine, unspecified AMB Urinalysis Automated 06/19/23 Z13.9 - Encounter for screening, unspecified Prostate Specific Antigen 364 Days R33.9 - Retention of urine, unspecified Medications: Refilled terazosin 10 mg PO BEDTIME 90 days 90 caps 3RF R33.9 - Retention of urine, unspecified Patient Instructions: Imaging studies, laboratory and physical exam results were discussed and reviewed in detail. No major barriers to patient understanding were identified. An opportunity to ask questions regarding the treatment plan was provided. All questions were answered. The patient expressed understanding and agreement with the above treatment plan. The patient is aware they should contact our office by phone for worsening of their current condition or the appearance of new urologic symptoms. Compliance is encouraged with any medications and followup testing that is ordered. It is a privilege to participate in the urologic care of your patient. If you have any questions or concerns regarding treatment for the above conditions, or other urologic issues, please do not hesitate to contact me. The office telephone contact is [phone]. This note is constructed using voice recognition software. While every effort has been made to ensure accuracy weigher alloy errors may have been included. Yours sincerely, Dr Christopher Thayer MD, J[facility] - Urology Providers of Expert, Compassionate Care for the Genitourinary System Coding Level of Care Code Est Pt Level 3 (16326) Diagnoses Urinary retention with incomplete bladder emptying R33.9 CPT Codes Post Residual Void - PVR CPT Code: 27027-Zdbk Void Residual by ultrasound ([id number])
== END 2023-06-19 12:17 | disposition home or self-care (01) ==
PROVIDERS: PCP Internal Medicine; Visit Provider Urology
DX: R33.9 Retention of urine, unspecified (principal)
CPT/HCPCS: 99213

== ENCOUNTER → 2023-06-19 11:21 | Outpatient (BNVA) | payer OTHER, SELFPAY | PROVIDERS: Visit Provider Urology | DX: R33.9 Retention of urine, unspecified (principal) | CPT/HCPCS: 51798; 81003 ==

== ENCOUNTER 2023-09-03 08:02 | Outpatient (REF) | payer OTHER, SELFPAY ==
[2023-09-03 11:27] LABS: MANUAL DIFF FLAG NO
[2023-09-03 11:33] LABS: Basophils Percent Auto 0.5 % (0-2); Eosinophils Absolute Auto 0.1 X10*3/uL (0.0-0.4); Eosinophils Percent Auto 3.7 % (0-4); Hematocrit 39.8 % (42.0-52.0); Hemoglobin 12.6 g/dl (14.0-18.0); Imm Gran Abs Auto 0.01 X10*3/uL (0.00-0.03); Imm Gran Pct Auto 0.3 % (0.0-0.4); Lymphocytes Absolute Auto 0.8 X10*3/uL (1.2-4.9); Lymphocytes Percent Auto 21.3 % (20-40); Mean Corpuscular HGB Conc 31.7 g/dl (31.0-36.0); Mean Corpuscular Hemoglobin 30.3 pg (27.0-33.0); Mean Corpuscular Volume 95.7 fL (80.0-98.0); Mean Platelet Volume 9.3 fL (9.4-12.4); Monocytes Absolute Auto 0.4 X10*3/uL (0.1-1.2); Monocytes Percent Auto 10.8 % (2-11); Neutrophils Absolute Auto 2.4 x10*3/uL (2.0-8.3); Neutrophils Percent Auto 63.4 % (45-73); Platelet Count 210 X10*3/uL (160-400); Red Blood Count 4.16 X10*6/uL (4.60-5.80); Red Cell Distribution Width 12.5 % (11.0-16.0); White Blood Count 3.8 X10*3/uL (4.8-10.8)
[2023-09-03 12:04] LABS: Alanine Aminotransferase 18 U/L (0-40); Albumin Level 4.3 g/dL (3.5-5.0); Alkaline Phosphatase 106 U/L (39-117); Anion Gap 12 (12-20); Aspartate Amino Transferase 22 U/L (5-37); Bilirubin Total 0.3 mg/dL (0.0-1.0); Blood Urea Nitrogen 16 mg/dL (9-16); Calcium 9.8 mg/dL (8.4-10.2); Carbon Dioxide 28 mmol/L (22-29); Chloride 103 mmol/L (96-108); Cholesterol 163 mg/dL (<200); Estimated Glomerular Filt Rate > 60; Glucose Fasting 102 mg/dL (60-99); HDL Cholesterol 59 mg/dL (>40); LDL Cholesterol Calculated 94 mg/dL (<100); Potassium 4.8 mmol/L (3.3-5.1); Sodium 138 mmol/L (135-145); Total Protein 7.8 g/dL (6.5-8.0); Triglycerides 50 mg/dL (<150)
[2023-09-03 12:16] LABS: PSA,Total (Free>4and<10) 7.68 ng/mL (0.00-4.00)
[2023-09-03 12:24] LABS: Thyroid Stimulating Hormone 1.88 uIU/mL (0.32-4.0); Vitamin D 25-OH Total 39.5 ng/mL (>30)
[2023-09-07 08:13] LABS: Free Prostate Spec Ag 1.5 ng/mL; Percent Free Prostate Spec Ag 21 % (calc) (>25); Prostate Specific Ag Total 7.3 ng/mL (< OR = 4.0)
== END 2023-09-03 08:03 | disposition home or self-care (01) ==
LOC: HO.HMGCLDS 08:02
PROVIDERS: PCP Internal Medicine; Visit Provider Internal Medicine
DX: Z00.00 Encounter for general adult medical examination without abnormal findings (principal); Z12.5 Encounter for screening for malignant neoplasm of prostate; I10 Essential (primary) hypertension; E78.00 Pure hypercholesterolemia, unspecified; E55.9 Vitamin D deficiency, unspecified; J45.30 Mild persistent asthma, uncomplicated
CPT/HCPCS: 36415; 80053; 80061; 82306; 84153; 84154; 84443; 85025

== ENCOUNTER 2023-10-09 08:01 | Outpatient (AMB) | payer OTHER, SELFPAY ==
--- NOTE | 2023-10-09 08:12 | A.OFFVIS_ITS ---
Intake Intake Visit Reasons: OV - rt hip OA, last arthrogram injection 10/30/22 Intake Note: Henrique is a 61 year old male who presents today for a follow up for his right hip OA, last injection 10/30/22 Patient reports is last injection gave him one month of relief. He stated that he fell on his right side which caused him to have his pain again. Patients pain is on the buttocks and groin area on the right side of the hip. Pain is worse when driving for a long time and moving his right leg a certain way. Allergies Seasonal Allergies Allergy (Verified 10/09/23 08:12) Unknown Penicillins Adverse Reaction (Unknown, Verified 10/09/23 08:12) unknown HPI OV - rt hip OA, last arthrogram injection 10/30/22 HPI Details 62-year-old male who presents in the off ice today for a follow up of right hip pain. I last saw the patient in the office on 10/10/2022 where he was referred for a cortisone injection under ultrasound guidance. Patient obtained a right hip arthrogram injection on 10/30/2022. While in the office today the patient reports the last injection gave him one month of relief. He states he fell on his right side which has caused an increase in pain. He states the pain is located in the buttocks and groin area on the right side of the hip. He states he has an increase in pain when driving for long periods of time and moving his right leg a certain way. [facility] Medical History (Updated 12/19/22 @ 13:07 by Bety Watson RN) Urinary retention BPH (benign prostatic hyperplasia) Elevated cholesterol Diverticulosis HTN (hypertension) Thrush, oral Asthma KARLI on CPAP Obesity (BMI 30-39.9) Surgical History (Updated 12/19/22 @ 13:07 by Bety Watson RN) H/O colonoscopy Social History Patient Tobacco Use Status: Never used Tobacco Review of Systems Const All systems reviewed & are unremarkable except as noted in HPI and below Physical Exam Const General: cooperative, healthy appearing and no acute distress Orientation/consciousness: patient oriented x3 HEENT Head: Yes normal to inspection, Yes normocephalic and Yes atraumatic Eyes General: appearance normal, both eyes and all related structures Resp Effort & Inspection: normal respiratory effort and able to speak in complete sentences Cardio Rate: regular rate Peripheral pulses: Peripheral pulses 2+ throughout GI Palpation (GI): Soft to palpation Skin Lesions: no lesions Rashes: no rashes Neuro General: patient oriented x3 Extrem Other: Right hip: Normal to inspection. No ecchymosis, erythema, or edema. Decreased ROM in the hip due to groin pain. No tenderness to palpation over the greater trochanteric bursa. 5/5 strength with resisted hip flexion, knee extension, abduction, and abduction. Able to perform straight leg raise. NVI. Assessment & Plan Assessment & Plan (1) Osteoarthritis of right hip: Code(s): M16.11 - Unilateral primary osteoarthritis, right hip Plan Mr. Patel is a 62-year-old male who presents in the office today for a follow up of right hip pain. I last saw the patient in the office on 10/10/2022 where he was referred for a cortisone injection under ultrasound guidance. Patient obtained a right hip arthrogram injection on 10/30/2022. While in the office today the patient reports the last injection gave him one month of relief. He states he fell on his right side which has caused an increase in pain. He states the pain is located in the buttocks and groin area on the right side of the hip. He states he has an increase in pain when driving for long periods of time and moving his right leg a certain way. We discussed the role of conservative treatment versus surgical intervention for the right hip. Surgical intervention including total hip arthroplasty. He is not interested in pursing any surgical intervention at this time, therefore we will continue with conservative care. He would like to repeat a cortisone injection into the right hip. The order has been placed for him to be scheduled at the hospital for a right hip arthrogram under imaging guidance. Follow up will be PRN, or sooner if needed. Orders: Orders FL arthrogram hip RT Today M16.11 - Unilateral primary osteoarthritis, right hip Patient Instructions: Scribed for Rachel Murillo PA-C by Brenda Ochoa medical staff services coordinator, on 10/09/2023 at 8:10 am, EST. Coding Level of Care Code Est Pt Level 3 (22554) Diagnoses Osteoarthritis of right hip M16.11
== END 2023-10-09 08:27 | disposition home or self-care (01) ==
PROVIDERS: PCP Internal Medicine; Visit Provider Physician Assistant
DX: M16.11 Unilateral primary osteoarthritis, right hip (principal)
CPT/HCPCS: 99213

== ENCOUNTER → 2023-10-09 08:01 | Outpatient (BNVA) | payer OTHER, SELFPAY | PROVIDERS: PCP Internal Medicine; Visit Provider Physician Assistant ==

== ENCOUNTER 2023-11-02 13:09 | Outpatient (REF) | payer OTHER, SELFPAY ==
--- NOTE | ~2023-11-02 | FL_ITS ---
Right hip steroid injection Indications: Right hip pain. Intra-articular gadolinium injection is needed prior to MRI. Procedure: Risks and benefits and possible complications were discussed with the patient and the consent form was signed. The patient was placed hip on the fluoroscopy table. The right hip was prepped and draped in normal sterile fashion. 1% buffered lidocaine was used for anesthesia. A 22-gauge spinal needle was used to access the hip joint. Intra-articular position of the needle within the hip joint was verified using 3 cc of Omnipaque 300. A total of 80 mg Depo-Medrol and 5 mL 1% lidocaine was then injected into the hip joint. The needle was then removed and a Band-Aid was applied to the injection site. The patient tolerated the procedure well. There were no immediate complications. FL/FL arthrogram hip RT Impression: Fluoroscopic right hip steroid injection The procedure was performed by Michael Mariee PA-C, and directly supervised by Dr. Amaya.
== END 2023-11-02 13:10 | disposition home or self-care (01) ==
LOC: HO.XRAY 13:09
PROVIDERS: PCP Internal Medicine; Visit Provider Physician Assistant
DX: M16.11 Unilateral primary osteoarthritis, right hip (principal)
CPT/HCPCS: 27093; 73525

== ENCOUNTER → 2023-11-02 13:10 | Outpatient (BNV) | payer OTHER, SELFPAY | PROVIDERS: PCP Internal Medicine; Visit Provider Student in an Organized Health Care Education/Training Program | DX: M25.551 Pain in right hip (principal) | CPT/HCPCS: 27093; 73525 ==

== ENCOUNTER 2024-03-11 08:43 | Emergency (ER) | payer OTHER, SELFPAY ==
--- NOTE | ~2024-03-11 | XR_ITS ---
EXAMINATION: XR CHEST CLINICAL INFORMATION: Palpitations COMPARISON: None available. TECHNIQUE: Frontal view of the chest was obtained. FINDINGS: No significant abnormality is noted involving the heart, lungs, mediastinum, bony thorax or soft tissues. XR/XR chest 1V IMPRESSION: Unremarkable examination.
[2024-03-11 08:55] VITALS: BP 145/57; PULSE 65; RESP 18; TEMP 37.2; O2SAT 100; BMI 23.2; BMI 29.4
--- NOTE | 2024-03-11 08:56 | ECG_ITS ---
Test Reason : palpitations Blood Pressure : / mmHG Vent. Rate : 064 BPM Atrial Rate : 064 BPM P-R Int : 190 ms QRS Dur : 082 ms QT Int : 396 ms P-R-T Axes : 053 020 042 degrees QTc Int : 408 ms Normal sinus rhythm Low voltage QRS Borderline ECG No previous ECGs available Referred By: Generic ED Physician Electronically Signed By:ISMA HOUSTON
--- NOTE | 2024-03-11 09:13 | ED_ITS ---
HPI - Arrhythmia/Palpitations General Chief Complaint: Arrhythmia/Palpitations Stated Complaint: Heart palpitations, dizziness Time Seen by Provider: 03/11/24 09:11 Source: patient, RN notes reviewed and old records reviewed Mode of arrival: ambulatory Limitations: no limitations History of Present Illness ED Provider: SERGO GARCIA PA-C HPI narrative: 63 year old male with pmhx significant for KARLI on CPAP, asthma, HTN, BPH, urinary retention presents to the ED today for evaluation of intermittent dizziness and palpitations since last night. Reports bending over last night and upon standing back up, became light headed. He then went to lie down in bed and felt his heart racing. He was able to fall asleep and on waking this morning, reports continued palpitations. Per apple watch, his heart rate stayed between 70-80 beats per minute. Admits to bending down a 2nd time this morning to pet his dog and became dizzy again, this time with room spinning sensation. This prompted him to come to the ED for further evaluation. He denies any symptoms at present. Denies ever having these symptoms before. Denies history of cardiac disease. Denies familial history of sudden cardiac deaths. Denies recent travel or long car rides. He does have a history of hypertension and is compliant with his valsartan. No recent medication changes. At present he denies headache, dizziness, vision changes, chest pain, palpitations, shortness of breath, cough, hemoptysis, fever, chills, nausea/vomiting, diarrhea, calf pain/tenderness. Denies recent travel or long car rides. Related Data Home Medications ?Medication ?Instructions ?Recorded ?Confirmed fluticasone 250 mcg-salmeterol 50 1 ea inhalation BID 07/11/21 06/19/23 mcg/dose blistr powdr for inhalation (Advair Diskus) simvastatin 40 mg tablet 40 mg PO BEDTIME 07/11/21 06/19/23 valsartan 160 mg tablet 160 mg PO DAILY 07/11/21 06/19/23 aspirin 81 mg tablet,delayed 81 mg PO DAILY 04/01/22 06/19/23 release loratadine 10 mg tablet (Claritin) 10 mg PO DAILY 04/01/22 06/19/23 Previous Rx's ?Medication ?Instructions ?Recorded terazosin 10 mg capsule 10 mg PO BEDTIME 90 days #90 caps 06/19/23 meclizine 12.5 mg tablet 12.5 mg PO TID PRN dizziness #14 03/11/24 tabs Allergies Allergy/AdvReac Type Severity Reaction Status Date / Time Seasonal Allergies Allergy Unknown Verified 03/11/24 08:58 Penicillins AdvReac Unknown unknown Verified 03/11/24 08:58 Review of Systems 2 Review of Systems: Constitutional: No fever, chills, fatigue, night sweats, weight changes ENT/Mouth: No ear pain, hearing loss, nasal congestion, sinus pain, rhinorrhea, sore throat Eyes: No eye pain, swelling, redness, vision changes, discharge Cardio: No chest pain, palpitations, [place], orthopnea, peripheral edema Pulm: No SOB, cough, sputum, wheezing, dyspnea, hemoptysis GI: No nausea, vomiting, hematemesis, abdominal pain, diarrhea, constipation, hematochezia, melena : No irregular bleeding, dysuria, frequency, urgency, hesitancy, hematuria, flank pain, urinary flow changes, urinary incontinence or retention MSK: No back pain, neck pain, joint pain, myalgias Skin: No lesions, rashes Neuro: No weakness, numbness, paresthesias, LOC, dizziness, headache Psych: No anxiety/panic, depression, SI/HI, AH/VH All other systems reviewed and are negative. [facility] Past Medical History Attestation statement: The following information was validated with the patient. Source: old records reviewed and nursing notes reviewed Medical History Urinary retention BPH (benign prostatic hyperplasia) Elevated cholesterol Diverticulosis HTN (hypertension) Thrush, oral Asthma KARLI on CPAP Obesity (BMI 30-39.9) Surgical History H/O colonoscopy Social History Social History Patient Tobacco Use Status: Never used Tobacco Physical Exam 2 Vital Signs: Vital Signs: Last Vital Signs Temp 97.6 F 03/11/24 12:57 Pulse 55 03/11/24 12:57 Resp 16 03/11/24 12:57 BP 118/62 03/11/24 12:57 Pulse Ox 98 03/11/24 12:57 O2 Del Method Room Air 03/11/24 12:57 BMI result Body Mass Index 23.2 Patient is slightly hypertensive to 145/57, vitals otherwise WNL Const: General: cooperative, healthy appearing, comfortable and no acute distress Orientation/consciousness: patient oriented x3 Limitations: no limitations HEENT: Head: Yes normal to inspection, Yes No palpable skull fracture present, Yes normocephalic and Yes atraumatic Eyes: General: appearance normal, both eyes and all related structures P upils: Equal, round and reactive pupils present Neck: Neck: Yes normal visual inspection and Yes full ROM Chest: Chest palpation & inspection: normal inspection of the chest and normal palpation of entire chest wall Resp: Effort & Inspection: normal respiratory effort and able to speak in complete sentences Auscultation: clear to auscultation bilaterally Cardio: Other: No peripheral edema Jugular venous distension: no JVD Rate: regular rate Rhythm: regular rhythm GI: Inspection: Yes normal to inspection Palpation (GI): Soft to palpation and nontender Skin: General skin exam: no rashes or lesions noted Neuro: Other: Strength 5/5 intact throughout.?Sensation intact to light touch.? Neurovascular intact distally.? General: patient oriented x3 and gait normal Cranial nerves: Yes Equal, round and reactive pupils present Gait exam (Neuro): Normal gait present M otor exam (neuro): 5/5 motor strength present throughout and Pronator motor function not present Coordination: [id number] test normal, [id number] test normal and Normal rapid alternating movements of the distal upper extremity present (Neuro) Romberg Test: Negative Pupils: Normal pupillary reactivity/response: bilateral Course Course Course Narrative: 1009-- CBC without leukocytosis or likely anemic when compared to priors, H&H stable. Chemistry without acute electrolyte abnormality requiring intervention. Normal renal function. Random glucose 140. Normal liver function. Initial troponin undetectable. Will repeat for delta. Negative for COVID, flu, RSV. EKG showing normal sinus rhythm with a rate of 64 beats per minute, QT 396, QTC 408. Low voltage QRS. No acute ischemic changes or ST elevations. Orthostatic vital signs negative. Patient receiving IV fluids. Chest x-ray pending. 1304-- delta troponin flat. Chest x-ray with normal cardiac silhouette, no infiltrate or consolidation to suggest pneumonia. no clear etiology of patient's symptoms. he has remained asymptomatic throughout ED visit. Discussed all workup results with patient. Will provide him with referral to combination welder for further evaluation. Patient has remained stable throughout ED visit today. Discussed worrisome signs and symptoms and when to return to the ED. All questions answered at this time. Patient is agreeable with disposition and stable for discharge. Medications Administered Discontinued Medications Generic Name Dose Route Start Last Admin Trade Name Freq PRN Reason Stop Dose Admin Sodium Chloride 1,000 mls @ 999 mls/hr 03/11/24 09:30 03/11/24 10:41 Ns IV 03/11/24 10:30 Infused .Q1H1M ABBIE Infusion Medical Decision Making Medical Decision Making [facility] Narrative: 63 year old male with pmhx significant for KARLI on CPAP, asthma, HTN, BPH, urinary retention presents to the ED today for evaluation of intermittent dizziness and palpitations since last night. Slightly hypertensive, vitals otherwise WNL. He is nontoxic-appearing and in no acute distress. Exam is nonfocal. Cerebellum intact. PERRLA. No reproducible chest wall tenderness to palpation. RRR. Lungs are CTA bilaterally. No JVD or peripheral edema. Ambulating with steady gait. Skin warm, dry, intact. No rashes. Differential diagnosis includes anemia, electrolyte abnormality, dehydration, arrhythmia, ACS, orthostatic hypotension, vertigo. Lower suspicion for pneumonia, viral syndrome. Unlikely pulmonary embolism, pleural effusion, CVA/TIA, cerebellar stroke. Plan for labs, ekg, cxr, ortho vitals, IVF, and re-evaluation. Differential Diagnosis Differential Diagnoses: The differential diagnosis associated with the presentation includes As above Admission/Observation Consideration of admission/observation: Escalation of care including admission/observation considered Admission considered on presentation Lab Data [facility] Lab Attestation statement: I reviewed the patient's lab results. As above 03/11/24 09:11 03/11/24 09:11 Labs: Lab Results 03/11/24 03/11/24 Range/Units 09:11 11:59 WBC 3.3 L (4.8-10.8) X10*3/uL RBC 4.18 L (4.60-5.80) X10*6/uL Hgb 13.0 L (14.0-18.0) g/dl Hct 38.5 L (42.0-52.0) % MCV 92.1 (80.0-98.0) fL MCH 31.1 (27.0-33.0) pg MCHC 33.8 (31.0-36.0) g/dl RDW 12.8 (11.0-16.0) % Plt Count 148 L D (160-400) X10*3/uL MPV 9.0 L (9.4-12.4) fL Immature Gran % (Auto) 0.3 (0.0-0.4) % Neut % (Auto) 63.3 (45-73) % Lymph % (Auto) 24.6 (20-40) % Angelina % (Auto) 8.8 (2-11) % Eos % (Auto) 2.4 (0-4) % Baso % (Auto) 0.6 (0-2) % Lymph # (Auto) 0.8 L (1.2-4.9) X10*3/uL Angelina # (Auto) 0.3 (0.1-1.2) X10*3/uL Eos # (Auto) 0.1 (0.0-0.4) X10*3/uL Baso # (Auto) 0.0 (0.0-0.2) X10*3/uL Abs Immat Gran (auto) 0.01 (0.00-0.03) X10*3/uL Absolute Neuts (auto) 2.1 (2.0-8.3) x10*3/uL Absolute Nucleated RBC 0.000 (0.0-0.012) X10*3/uL Nucleated RBC % (auto) 0.0 (0.0-0.2) /100WBC PT 12.5 (11.1-13.3) SEC INR 1.0 (0.9-1.1) Sodium 140 (135-145) mmol/L Potassium 4.6 (3.3-5.1) mmol/L Chloride 106 (96-108) mmol/L Carbon Dioxide 23 (22-29) mmol/L Anion Gap 16 (12-20) BUN 14 (9-16) mg/dL Creatinine 1.10 (0.5-1.4) mg/dL Estim Creat Clear Calc 71.8 Estimated GFR > 60 Random Glucose 140 H (60-115) mg/dL Calcium 9.4 (8.4-10.2) mg/dL Magnesium 2.0 (1.6-2.6) mg/dL Total Bilirubin 0.3 (0.0-1.0) mg/dL AST 21 (5-37) U/L ALT 14 (0-40) U/L Alkaline Phosphatase 101 (39-117) U/L Troponin I High Sens < 2.7 < 2.7 (<3.5-35.0) ng/L Total Protein 7.4 (6.5-8.0) g/dL Albumin 4.3 (3.5-5.0) g/dL Influenza Type A (PCR) NEGATIVE (Negative) Influenza Type B (PCR) NEGATIVE (Negative) RSV RNA Qual (PCR) NEGATIVE (Negative) SARS-CoV-2 RNA (RT-PCR) NEGATIVE (Negative) Independent Interpretation I performed an independent interpretation of an: EKG and Plain X-Ray Interpretation: EKG showing normal sinus rhythm with a rate of 64 beats per minute, QT 396, QTC 408, no acute ischemic changes or ST elevations. Chest x-ray with normal cardiac silhouette. No infiltrate or consolidation to suggest pneumonia, agree with radiologist's interpretation. Radiology Impression Discussion of test interpretation with radiology: I have reviewed the radiologist's reading. Radiologist Impression: EXAMINATION: XR CHEST CLINICAL INFORMATION: Palpitations COMPARISON: None available. TECHNIQUE: Frontal view of the chest was obtained. FINDINGS: No significant abnormality is noted involving the heart, lungs, mediastinum, bony thorax or soft tissues. XR/XR chest 1V IMPRESSION: Unremarkable examination. Independent Historian Clinical information obtained from an independent historian. History obtained from or confirmed by: Spouse External Record Review External record reviewed: Inpatient record, Office record, Outpatient record, Prior outpatient labs, Prior outpatient radiology, Primary care record and Outside ED record Prescription Management I considered prescription management with: Other (Meclizine) Chronic Conditions Patient?s care impacted by: Hypertension Social Determinants Patient?s care significantly limited by Social Determinants of Health including: Other Social Determinant of Health Critical Care Time Critical Care Time Critical Care Time: No Discharge Plan Discharge Clinical Impression: Heart palpitations Patient Disposition: Home, Self-Care Instructions: Heart Palpitations (ED) Additional Instructions: Your blood work today is reassuring. Your chest xray is normal. You tested negative for covid, flu, rsv. Meclizine has been sent to your pharmacy for you to take as needed for dizziness. Make sure you are staying adequately hydrated throughout the day. Use caution when moving from one position to the other to allow your blood pressure to normalize. Avoid sudden head movements. You have been provided with referral to combination welder. Please call them to establish care, they will not call you. Follow up with PCP as needed. Return with new or worsening symptoms. In the case of an emergency call 911. Prescriptions: New meclizine 12.5 mg tablet 12.5 mg PO TID PRN (Reason: dizziness) Qty: 14 0RF No Action fluticasone propion-salmeterol [Advair Diskus] 250-50 mcg/dose blister with device 1 ea inhalation BID valsartan 160 mg tablet 160 mg PO DAILY simvastatin 40 mg tablet 40 mg PO BEDTIME aspirin 81 mg tablet,delayed release (DR/EC) 81 mg PO DAILY loratadine [Claritin] 10 mg tablet 10 mg PO DAILY terazosin 10 mg capsule 10 mg PO BEDTIME 90 Days Qty: 90 3RF Referrals: [facility] [place] [facility] [Provider Group] Qmaar Fang DO [Primary Care Provider] - Interventions: ED Discharge Assessment Last Done: 03/11/24 12:57 Discharge Date/Time: 03/11/24 12:59 Print Language: Frisian
[2024-03-11 09:18] LABS: MANUAL DIFF FLAG NO
[2024-03-11 09:25] LABS: Prothrombin Time 12.5 SEC (11.1-13.3)
[2024-03-11] MEDS: 0.9 % Sodium Chloride 1,000 ML 999 ML IV (09:27)
[2024-03-11 09:28] VITALS: BP 116/58; PULSE 60
[2024-03-11 09:29] VITALS: BP 123/58; PULSE 68
[2024-03-11 09:30] LABS: Basophils Percent Auto 0.6 % (0-2); Eosinophils Absolute Auto 0.1 X10*3/uL (0.0-0.4); Eosinophils Percent Auto 2.4 % (0-4); Hematocrit 38.5 % (42.0-52.0); Imm Gran Abs Auto 0.01 X10*3/uL (0.00-0.03); Imm Gran Pct Auto 0.3 % (0.0-0.4); Lymphocytes Absolute Auto 0.8 X10*3/uL (1.2-4.9); Lymphocytes Percent Auto 24.6 % (20-40); Mean Corpuscular HGB Conc 33.8 g/dl (31.0-36.0); Mean Corpuscular Hemoglobin 31.1 pg (27.0-33.0); Mean Corpuscular Volume 92.1 fL (80.0-98.0); Monocytes Absolute Auto 0.3 X10*3/uL (0.1-1.2); Monocytes Percent Auto 8.8 % (2-11); Neutrophils Absolute Auto 2.1 x10*3/uL (2.0-8.3); Neutrophils Percent Auto 63.3 % (45-73); Platelet Count 148 X10*3/uL (160-400); Red Blood Count 4.18 X10*6/uL (4.60-5.80); Red Cell Distribution Width 12.8 % (11.0-16.0); White Blood Count 3.3 X10*3/uL (4.8-10.8)
[2024-03-11 09:32] VITALS: BP 123/61; PULSE 65
[2024-03-11 09:33] LABS: Alanine Aminotransferase 14 U/L (0-40); Albumin Level 4.3 g/dL (3.5-5.0); Alkaline Phosphatase 101 U/L (39-117); Anion Gap 16 (12-20); Aspartate Amino Transferase 21 U/L (5-37); Bilirubin Total 0.3 mg/dL (0.0-1.0); Blood Urea Nitrogen 14 mg/dL (9-16); Calcium 9.4 mg/dL (8.4-10.2); Carbon Dioxide 23 mmol/L (22-29); Chloride 106 mmol/L (96-108); Creatinine Clr Calc Pharmacy 71.8; Estimated Glomerular Filt Rate > 60; Glucose Random 140 mg/dL (60-115); Potassium 4.6 mmol/L (3.3-5.1); Sodium 140 mmol/L (135-145); Total Protein 7.4 g/dL (6.5-8.0)
[2024-03-11 09:41] LABS: Troponin-I High Sensitivity < 2.7 ng/L (<3.5-35.0)
[2024-03-11 09:56] LABS: Influenza A PCR NEGATIVE (Negative); Influenza B PCR NEGATIVE (Negative); Resp Syncy Virus RNA Qual PCR NEGATIVE (Negative); SARS COV2 PCR INHOUSE NEGATIVE (Negative)
[2024-03-11 10:00] VITALS: BP 131/51; PULSE 56; RESP 16; O2SAT 99
[2024-03-11 12:33] LABS: Troponin-I High Sensitivity < 2.7 ng/L (<3.5-35.0)
[2024-03-11 12:57] VITALS: BP 118/62; PULSE 55; RESP 16; TEMP 36.4; O2SAT 98
== END 2024-03-11 12:59 | disposition home or self-care (01) ==
PROVIDERS: Physician Assistant Medical; Emergency Provider Emergency Medicine Emergency Medical Services; PCP Internal Medicine
DX: R00.2 Palpitations (principal); R42 Dizziness and giddiness; I10 Essential (primary) hypertension; E78.00 Pure hypercholesterolemia, unspecified; J45.909 Unspecified asthma, uncomplicated; G47.33 Obstructive sleep apnea (adult) (pediatric); Z99.89 Dependence on other enabling machines and devices; Z03.818 Encounter for observation for suspected exposure to other biological agents ruled out; Z79.899 Other long term (current) drug therapy
CPT/HCPCS: 0241U; 36415; 71045; 80053; 83735; 84484; 85025; 85610; 93005; 96360; 99284; 99285

== ENCOUNTER → 2024-03-11 08:56 | Outpatient (BNV) | payer OTHER, SELFPAY | PROVIDERS: Emergency Provider Emergency Medicine Emergency Medical Services; PCP Internal Medicine; Visit Provider Internal Medicine | DX: R00.2 Palpitations (principal) | CPT/HCPCS: 93010 ==

== ENCOUNTER 2024-04-01 12:52 | Outpatient (AMB) | payer OTHER, SELFPAY ==
--- NOTE | 2024-04-01 13:03 | MHC.OFFVIS ---
Vital Signs 04/01/24 13:04 Height 5 ft 10 in Weight 208 lb 8.917 oz BMI 29.9 BP 120/60 Blood Pressure Location Lt brachial Position Sitting Pulse 71 Pulse Source Pulse Oximeter Intake Visit Reasons: [employer]/[facility]/Heart palpitations, dizziness Residence Supervisor Required: No Accompanied by: Self / Same As Patient Allergies Seasonal Allergies Allergy (Verified 04/01/24 13:24) Unknown Penicillins Adverse Reaction (Unknown, Verified 04/01/24 13:24) unknown Medication List - Last Reconciled 04/01/24 by Maris Cerda NP aspirin 81 mg PO DAILY loratadine (Claritin) 10 mg PO DAILY meclizine 12.5 mg PO TID PRN simvastatin 40 mg PO BEDTIME terazosin 10 mg PO BEDTIME 90 days valsartan 160 mg PO DAILY HPI Comments Details: 63-year-old male presents today as a new patient. He was seen in the ED on 03/11/2024 for palpitations and dizziness. He had woken up with his heart racing he got up and drank some water. He had gone back to bed and woke up with his heart pounding. He had bent over to tie his shoes and the room was spinning.He reports he had lost about 80 lbs in about a year. He reports no cardiac issues for himself or in his immediately family that he is aware of. He reports his sleep apnea and asthma have been controlled with minimal intervention since the weight loss. He uses on maintenance inhaler and no longer needs a CPAP. 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 He denies chest pains, shortness of breath, or swelling. Since the emergency room visit he has noticed an occasional heart palpitation which feels like a flutter. Dizziness has resolved since then. He has cut back on drinking coffee. He does not smoke and has a rare alcohol beverage. [facility] Medical History Urinary retention BPH (benign prostatic hyperplasia) Elevated cholesterol Diverticulosis HTN (hypertension) Thrush, oral Asthma KARLI on CPAP Obesity (BMI 30-39.9) Surgical History H/O colonoscopy Social History Alcohol intake: current Alcohol intake frequency: holidays/special occasions only Patient Tobacco Use Status: Never used Tobacco Review of Systems Const Denies chills, Denies fatigue, Denies fever(s), Denies frequent falls, Denies weakness, Denies weight gain and Denies weight loss ENT Denies dizziness Card Denies chest pain, Denies leg edema, Denies lightheadedness, Denies palpitations, Denies dyspnea, Denies dyspnea on exertion and Denies orthopnea Resp Denies cough, Denies dyspnea and Denies dyspnea on exertion GI Denies bloating and Denies change in bowel habits Musc Denies muscle weakness, Denies numbness and Denies tingling Neuro Denies dizziness, Denies frequent falls, Denies numbness, Denies tingling and Denies weakness Endo Denies fatigue and Denies palpitations Physical Exam Vital Signs: Last Vital Signs Pulse 71 04/01/24 13:04 BP 120/60 04/01/24 13:04 BMI result Body Mass Index 29.9 Assessment & Plan Assessment & Plan (1) Heart palpitations: Code(s): R00.2 - Palpitations Category: Medical Plan Patient with palpitations described as pounding. One episode where it woke him up in the middle of the night. The episode overnight was a racing heart beat, and intermittent palpitations otherwise with no trigger found. Will get holter to assess arrhythmias and echocariogram to assess for structure changes due to obesity, asthma, and sleep apnea. He has already reduced caffeine intake. He does not smoke and rarely ever drinks. Orders: Orders CA echo transthoracic complete 04/01/24 R00.2 - Palpitations ECG 3 day holter monitor 04/01/24 R00.2 - Palpitations Coding Level of Care Code New Pt Level 4 (75703) Diagnoses Heart palpitations R00.2
[2024-04-01 13:04] VITALS: BP 120/60; PULSE 71; BMI 29.9
== END 2024-04-01 13:35 | disposition home or self-care (01) ==
PROVIDERS: PCP Internal Medicine; Visit Provider Nurse Practitioner
DX: R00.2 Palpitations (principal)
CPT/HCPCS: 99204

== ENCOUNTER → 2024-04-01 12:52 | Outpatient (BNVA) | payer OTHER, SELFPAY | PROVIDERS: PCP Internal Medicine; Visit Provider Nurse Practitioner | DX: R00.2 Palpitations (principal); R42 Dizziness and giddiness ==

== ENCOUNTER → 2024-05-02 13:45 | Outpatient (REF) | payer OTHER, SELFPAY ==
--- NOTE | 2024-05-02 13:49 | HM_ITS ---
* Total monitoring time 3 days. * Underlying rhythm is sinus with an average rate of 69/Min. * Rare supraventricular ectopy. * Occasional ventricular ectopy with a burden of about 1%. Isolated beats. * No significant pauses or AV blocks. * No patient markers or diary events. MTDD
--- NOTE | 2024-05-02 13:49 | CA_ITS ---
Transthoracic Echocardiogram Patient (Last, First, Middle): Henrique Patel S Gender: Male Date of : 1960 Age: 63 Procedure Date: 05/02/2024 Procedure Type: Transthoracic Echocardiogram Location: OP Height: 177.8 cm Weight: 90.72 kg BSA: 2.09 m2 Heart Rate: bpm BP: 110 / 60 mmHg Netezza Architect: LAURO Referring MD: Maris Cerda NP Lead Engineer: Kwabena Wilson MD Symptoms: R00.2 - Palpitations Study Quality: Fair ECG Rhythm: Sinus Conclusions: - Essentially normal study Findings Left Ventricle Normal left ventricular size, thickness, and systolic function. The visually estimated ejection fraction is between 65-70%. Spectral Doppler is indicative of a normal filling pattern. Right Ventricle Normal right ventricular cavity size and systolic function. Atria Both atria are normal in size. Interatrial shunt cannot be excluded. Aortic Valve The aortic valve structure and function is likely normal. There is no aortic valve stenosis. There is no aortic valve regurgitation. Mitral Valve Normal mitral valve structure and function. There is trace mitral valve regurgitation. There is no mitral valve stenosis. Pulmonic Valve The pulmonic valve was not well visualized. Tricuspid Valve Normal tricuspid valve structure. There is trace tricuspid valve regurgitation. The right ventricular systolic pressure is normal. The right ventricular systolic pressure is 29 mmHg. Normal right atrial pressure. There is no evidence of pulmonary hypertension. Great Vessels All visible segments of the aorta are normal in size. The pulmonary artery was not well visualized. Venous The inferior vena cava is normal in size and collapses greater than 50% with inspiration. Pericardium/Pleural There is no evidence of pericardial effusion. Prior Study Comparison No prior study available for comparison. Measurements 2D Linear Measurements IVSd: 1.04 0.6-0.9/0.6-1.0 cm LVIDd: 4.19 3.9-5.3/4.2-5.9 cm LVIDd Index: 2.00 2.4-3.2/2.2-3.1 cm/m2 LVIDs: 2.42 2.0-3.6 cm LVPWd: 0.95 0.7-1.1 cm LA Diam: 3.30 2.7-3.8/3.0-4.0 cm LAIDs Index: 1.58 1.5-2.3 cm/m2 LV Mass: 169.21 67-162/88-224 g LV Mass Index: 80.96 43-95/49-115 g/m2 LVOT Diam: 2.20 3.0+(-)1.3 cm 2D Systolic Function EF 4C: 60.90 >55% EF 2C: 67.90 >55% EF BiP: 66.30 >55% Mitral Valve MV Pk E: 0.83 MV PK A: 0.79 MV Decel Time: 256.00 E/A: 1.10 E'Lateral: 15.30 E'Medial: 10.10 E/E' Med: 8.30 E/E' Lat: 5.50 PHT: 75.00 MVA PHT: 2.93 Decel [place]: 3.26 Aortic Valve AoV Pk Reyes: 1.48 AoV Mn Reyes: 1.04 AoV VTI: 0.34 AoV Pk Grad: 9.00 Aov Mn Grad: 5.00 OLY Cont.VTI: 3.16 LVOT LVOT Pk Reyes: 1.31 LVOT Mn Reyes: 0.83 LVOT VTI: 0.28 LVOT Pk Grad: 7.00 LVOT Mn Grad: 3.00 LVOT Diam: 2.20 LVOT Area: 3.80 Diastolic Function MV Pk E: 0.83 MV Pk A: 0.79 E/A: 1.10 E'Medial: 10.10 E/E' Med: 8.30 E' Laterial: 15.30 E/E' Lat: 5.50 Right Ventricle TAPSE (mm): 33.60 TVS' Reyes: 15.80 Tricuspid Valve TR Pk Reyes: 2.53 TR Pk Grad: 26.00 RA Press: 3.00 RVSP: 29.00 Great Vessels Aorta Sinus of Valsalva: 3.00 2.0-3.[address] [place]: 2.11 1.7-3.4 cm Ao Asc: 3.00 2.1-3.4 cm Updated in Other Vendor System with Status of Final Kwabena Wilson MD electronically signed on 05/03/2024 11:05:19 AM with status of Final
== END ==
LOC: HO.CARD 13:45
PROVIDERS: PCP Internal Medicine; Visit Provider Nurse Practitioner
DX: R00.2 Palpitations (principal)
CPT/HCPCS: 93242; 93306

== ENCOUNTER → 2024-05-02 13:49 | Outpatient (BNV) | payer OTHER, SELFPAY | PROVIDERS: PCP Internal Medicine; Visit Provider Internal Medicine Cardiovascular Disease | DX: I49.3 Ventricular premature depolarization (principal) | CPT/HCPCS: 93244; 93306 ==

== ENCOUNTER 2024-05-19 13:45 | Outpatient (AMB) | payer OTHER, SELFPAY ==
--- NOTE | 2024-05-19 14:19 | A.OFFVIS_ITS ---
Vital Signs 05/19/24 14:20 Height 5 ft 10 in Weight 197 lb BMI 28.3 BP 124/60 Blood Pressure Location Lt brachial Position Sitting Pulse 71 Pulse Source Pulse Oximeter Intake Visit Reasons: 6 wkfollow up Allergies Seasonal Allergies Allergy (Verified 04/01/24 13:24) Unknown Penicillins Adverse Reaction (Unknown, Verified 04/01/24 13:24) unknown Medication List - Last Reconciled 05/19/24 by Maris Cerda NP aspirin 81 mg PO DAILY loratadine (Claritin) 10 mg PO DAILY simvastatin 40 mg PO BEDTIME terazosin 10 mg PO BEDTIME 90 days valsartan 160 mg PO DAILY HPI Comments Details: 63-year-old male presents today for a follow-up visit. He was seen in the ED on 03/11/2024 for palpitations and dizziness. He had woken up with his heart racing he got up and drank some water. He had gone back to bed and woke up with his heart pounding. He had bent over to tie his shoes and the room was spinning.He reports he had lost about 80 lbs in about a year. He reports no cardiac issues for himself or in his immediately family that he is aware of. He reports his sleep apnea and asthma have been controlled with minimal intervention since the weight loss. He uses on maintenance inhaler and no longer needs a CPAP. 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 He denies chest pains, shortness of breath, or swelling. He has had no re-occurring episodes since the ED visit. [facility] Medical History Urinary retention BPH (benign prostatic hyperplasia) Elevated cholesterol Diverticulosis HTN (hypertension) Thrush, oral Asthma KARLI on CPAP Obesity (BMI 30-39.9) Surgical History H/O colonoscopy Social History Alcohol intake: current Alcohol intake frequency: holidays/special occasions only Patient Tobacco Use Status: Never used Tobacco Review of Systems Const Denies weakness ENT Denies dizziness Card Denies chest pain, Denies chest pain with activity, Denies syncope, Denies rapid heart rate, Denies pedal edema, Denies edema, Denies leg edema, Denies lightheadedness, Denies palpitations, Denies dyspnea, Denies dyspnea on exertion and Denies orthopnea Resp Denies cough, Denies dyspnea and Denies dyspnea on exertion GI Denies hematochezia and Denies change in stool character Musc Denies abnormal gait, Denies muscle cramps, Denies muscle weakness, Denies numbness, Denies radiating pain into limb and Denies tingling Neuro Denies abnormal gait, Denies dizziness, Denies syncope, Denies numbness, Denies tingling and Denies weakness Endo Denies palpitations Physical Exam Vital Signs: Last Vital Signs Pulse 71 05/19/24 14:20 BP 124/60 05/19/24 14:20 BMI result Body Mass Index 28.3 Const General: healthy appearing and no acute distress Orientation/consciousness: patient oriented x3 HEENT Head: Yes normal to inspection Eyes General: appearance normal, both eyes and all related structures Neck Neck: Yes normal visual inspection Chest Chest palpation & inspection: normal inspection of the chest Resp Effort & Inspection: normal respiratory effort Auscultation: clear to auscultation bilaterally Cardio Jugular venous distension: no JVD Palpation: normal PMI Rate: regular rate Rhythm: regular rhythm Heart sounds: S1 normal heart sound present, S2 normal heart sound present, no click, no gallops, no murmurs and no rubs GI Inspection: Yes normal to inspection Palpation (GI): Soft to palpation Skin General skin exam: no rashes or lesions noted Neuro General: patient oriented x3 Extrem General: Yes normal to inspection Psych Appearance: grossly normal Results Reviewed Results Reviewed: Echo Conclusions: - Essentially normal study Holter: Total monitoring time 3 days. * Underlying rhythm is sinus with an average rate of 69/Min. * Rare supraventricular ectopy. * Occasional ventricular ectopy with a burden of about 1%. Isolated beats. * No significant pauses or AV blocks. * No patient markers or diary events. Assessment & Plan Assessment & Plan (1) Heart palpitations: Code(s): R00.2 - Palpitations Category: Medical Plan Patient without any symptomatic recurrence of palpitations. Holter monitor overall unremarkable. Reviewed Holter monitor events with patient. He reports at the time his heart rate was fast was during watching football. He is an avid football fan and gets very excited for the games. Discussed vagal maneuvers if he was to feel his heart racing. Emergency room if needed for sustained palpitations or tachycardia or symptoms. He already avoids caffeine and alcohol. He has lost significant weight through dieting and exercise and no longer uses CPAP machine. Emergency care if needed. Coding Level of Care Code Est Pt Level 3 (15745) Diagnoses Heart palpitations R00.2
[2024-05-19 14:20] VITALS: BP 124/60; PULSE 71; BMI 28.3
== END 2024-05-19 14:53 | disposition home or self-care (01) ==
PROVIDERS: PCP Internal Medicine; Visit Provider Nurse Practitioner
DX: R00.2 Palpitations (principal)
CPT/HCPCS: 99213

== ENCOUNTER → 2024-05-19 13:45 | Outpatient (BNVA) | payer OTHER, SELFPAY | PROVIDERS: PCP Internal Medicine; Visit Provider Nurse Practitioner | DX: R00.2 Palpitations (principal) ==

== ENCOUNTER 2024-06-11 07:49 | Outpatient (REF) | payer OTHER, SELFPAY ==
[2024-06-11 08:52] LABS: Prostate Specific Antigen 14.49 ng/mL (<0.05-4.0)
== END 2024-06-11 07:50 | disposition home or self-care (01) ==
LOC: HO.LAB 07:49
PROVIDERS: PCP Internal Medicine; Visit Provider Urology
DX: R33.9 Retention of urine, unspecified (principal); Z12.5 Encounter for screening for malignant neoplasm of prostate
CPT/HCPCS: 36415; 84153

== ENCOUNTER 2024-06-17 10:31 | Outpatient (AMB) | payer OTHER, SELFPAY ==
--- NOTE | 2024-06-17 10:43 | A.OFFVIS_ITS ---
Intake Visit Reasons: 1Y PSA/PVR(set)Elevated Intake Note: Patient is Present for PVR/PSA Urology Med: Terazosin Antibiotic Allergy:Penicillins Blood Thinner: Aspirin Last PVR: 43 Todays PVR:0 Recent PSA: 06/11/24 14.49 Allergies Seasonal Allergies Allergy (Verified 04/01/24 13:24) Unknown Penicillins Adverse Reaction (Unknown, Verified 04/01/24 13:24) unknown Medication List - Last Reconciled 06/17/24 by Christopher Thayer MD aspirin 81 mg PO DAILY levofloxacin 500 mg PO DAILY 14 days loratadine (Claritin) 10 mg PO DAILY simvastatin 40 mg PO BEDTIME terazosin 10 mg PO BEDTIME 90 days valsartan 160 mg PO DAILY HPI Comments Details: Henrique is a pleasant male. He is a patient Dr. Fnag. 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 [place] Lower urinary tract symptoms Current medications include terazosin 5 mg Seen August 2022 for urinary retention 800 cc and Nevarez catheter placement, imaging showed enlarged prostate PSA 11/25 2.1, 06/30 14 PFSH Medical History Urinary retention BPH (benign prostatic hyperplasia) Elevated cholesterol Diverticulosis HTN (hypertension) Thrush, oral Asthma KARLI on CPAP Obesity (BMI 30-39.9) Surgical History H/O colonoscopy Social History Alcohol intake: current Alcohol intake frequency: holidays/special occasions only Patient Tobacco Use Status: Never used Tobacco Review of Systems Const Denies chills and Denies fever(s) Card Reports no additional complaints and Denies syncope Resp Denies cough GI Denies abdominal pain and Denies heartburn Reports as per HPI and Denies change in libido Neuro Denies syncope Psych Denies change in libido Endo Denies change in libido Physical Exam Const General: cooperative, healthy appearing, comfortable and no acute distress Orientation/consciousness: patient oriented x3 HEENT Face and sinus: Yes normal facial exam Mouth: moist mucous membranes Neck Neck: Yes normal visual inspection, Yes full ROM and Yes trachea midline Chest Chest palpation & inspection: normal inspection of the chest Resp Effort & Inspection: normal respiratory effort, able to speak in complete sentences and no respiratory distress GI Inspection: Yes normal to inspection Back/Spine/Pelvis Cervical Spine: normal cervical lordosis Thoracic/Lumbar Spine: thoracic and lumbar spine normal to inspection Skin General skin exam: no rashes or lesions noted Neuro General: patient oriented x3, gait normal, tone normal and moves all extremities Extrem General: Yes normal to inspection and Yes capillary refill normal Office Procedures Post Void Residual Post Residual Void Post Void Residual (PVR): 0 [id number] Void Residual by ultrasound Results AMB Urinalysis, Automated UA Leukoctes 125 Richard/uL Last Edit by Sandy Willson [facility] on 06/17/24 10:52 UA Nitrite Negative Last Edit by Sandy Willson [facility] on 06/17/24 10:52 UA Urobilinogen 0.2 mg/dL Last Edit by Sandy Willson [facility] on 06/17/24 10:5 2 UA Protein 15 mg/dL Last Edit by Sandy Willson [facility] on 06/17/24 10:52 UA pH 5.5 Last Edit by Sandy Willson [facility] on 06/17/24 10:52 UA Blood 0 Jhon/uL Last Edit by Sandy Willson [facility] on 06/17/24 10:52 UA Specific Donahue 1.015 Last Edit by Sandy Willson [facility] on 06/17/24 10: 52 UA Ketone Negative Last Edit by Sandy Willson [facility] on 06/17/24 10:52 UA Bilirubin 0 mg/dL Last Edit by Sandy Willson [facility] on 06/17/24 10:52 UA Glucose 0 mg/dL Last Edit by Sandy Willson [facility] on 06/17/24 10:52 Results Reviewed Results Reviewed: Laboratory Last Values Urine pH (Auto) 5.5 06/17/24 10:50 Specific Donahue (Auto) 1.015 06/17/24 10:50 Urine Protein (Auto) 15 mg/dL 06/17/24 10:50 Glucose (UA)(Auto) 0 mg/dL 06/17/24 10:50 Urine Ketones (Auto) Negative 06/17/24 10:50 Urine Blood (Auto) 0 Jhon/uL 06/17/24 10:50 Urine Nitrite (Auto) Negative 06/17/24 10:50 Urine Bilirubin (Auto) 0 mg/dL 06/17/24 10:50 Urine Urobilinogen (Auto) 0.2 mg/dL 06/17/24 10:50 Leukocyte Esterase (Auto) 125 Richard/uL 06/17/24 10:50 Assessment & Plan Assessment & Plan (1) Prostatitis: Code(s): N41.9 - Inflammatory disease of prostate, unspecified Category: Medical Plan Two weeks antibiotics Repeat PSA Orders: Orders AMB Post Void Residual by ultrasound Today R33.9 - Retention of urine, unspecified AMB Urinalysis Automated Today Z13.9 - Encounter for screening, unspecified PSA,Total (Free>4and<10) 3 Weeks N41.9 - Inflammatory disease of prostate, unspecified Medications: New levofloxacin 500 mg PO DAILY 14 days 14 tabs 0RF N39.0 - Urinary tract infection, site not specified, N41.9 - Inflammatory disease of prostate, unspecified Patient Instructions: Imaging studies, laboratory and physical exam results were discussed and reviewed in detail. No major barriers to patient understanding were identified. An opportunity to ask questions regarding the treatment plan was provided. All questions were answered. The patient expressed understanding and agreement with the above treatment plan. The patient is aware they should contact our office by phone for worsening of their current condition or the appearance of new urologic symptoms. Compliance is encouraged with any medications and followup testing that is ordered. It is a privilege to participate in the urologic care of your patient. If you have any questions or concerns regarding treatment for the above conditions, or other urologic issues, please do not hesitate to contact me. The office telephone contact is [phone]. This note is constructed using voice recognition software. While every effort has been made to ensure accuracy supervisor lending activities errors may have been included. Yours sincerely, Dr Christopher Thayer MD, [facility] - Urology Providers of Expert, Compassionate Care for the Genitourinary System Coding Level of Care Code Est Pt Level 4 (83434) Diagnoses Prostatitis N41.9 CPT Codes Post Residual Void - PVR CPT Code: 83533-Ppeg Void Residual by ultrasound ([id number])
== END 2024-06-17 11:34 | disposition home or self-care (01) ==
PROVIDERS: PCP Internal Medicine; Visit Provider Urology
DX: N41.9 Inflammatory disease of prostate, unspecified (principal); Z13.9 Encounter for screening, unspecified
CPT/HCPCS: 99214

== ENCOUNTER → 2024-06-17 10:31 | Outpatient (BNVA) | payer OTHER, SELFPAY | PROVIDERS: PCP Internal Medicine; Visit Provider Urology | DX: N41.9 Inflammatory disease of prostate, unspecified (principal); R33.9 Retention of urine, unspecified | CPT/HCPCS: 51798; 81003 ==

== ENCOUNTER 2024-07-02 08:31 | Outpatient (REF) | payer OTHER, SELFPAY ==
[2024-07-02 09:59] LABS: PSA,Total (Free>4and<10) 3.66 ng/mL (0.00-4.00)
== END 2024-07-02 08:32 | disposition home or self-care (01) ==
LOC: HO.LAB 08:31
PROVIDERS: PCP Internal Medicine; Visit Provider Urology
DX: N41.9 Inflammatory disease of prostate, unspecified (principal); Z12.5 Encounter for screening for malignant neoplasm of prostate
CPT/HCPCS: 36415; 84153

== ENCOUNTER 2024-07-13 08:40 | Outpatient (AMB) | payer OTHER, SELFPAY ==
--- NOTE | 2024-07-13 08:36 | A.OFFVIS_ITS ---
Intake Visit Reasons: 2W PSA(set) Intake Note: Patient is present for 2W PSA Urology Medication:TERAZOSIN Antibiotic Allergy:PENICILLIN Blood Thinner:ASPIRIN Cooper Helper Required: No Allergies Seasonal Allergies Allergy (Verified 07/13/24 08:37) Unknown Penicillins Adverse Reaction (Unknown, Verified 07/13/24 08:37) unknown HPI Comments Details: Henrique is a pleasant male. He is a patient Dr. Fang. 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 [place] Disappointed regarding electron result Lower urinary tract symptoms Current medications include terazosin 5 mg Seen August 2022 for urinary retention 800 cc and Nevarez catheter placement, imaging showed enlarged prostate PSA 11/25 2.1, 06/30 14, 06/30 3.6 Prostatitis 06/30 with significant PSA elevation Responded to 2 weeks Levaquin [facility] Medical History Urinary retention BPH (benign prostatic hyperplasia) Elevated cholesterol Diverticulosis HTN (hypertension) Thrush, oral Asthma KARLI on CPAP Obesity (BMI 30-39.9) Surgical History H/O colonoscopy Social History Alcohol intake: current Alcohol intake frequency: holidays/special occasions only Patient Tobacco Use Status: Never used Tobacco Review of Systems Const All systems reviewed & are unremarkable except as noted in HPI and below Denies chills and Denies fever(s) Card Reports no additional complaints and Denies syncope Resp Denies cough GI Denies abdominal pain and Denies heartburn Reports as per HPI and Denies change in libido Musc Reports no additional complaints Neuro Denies syncope Psych Denies change in libido Endo Denies change in libido Physical Exam Telemedicine evaluation Appropriate responses Regular breathing rate and rhythm HEENT Head: Yes normal to inspection Ears: hearing grossly normal bilaterally Eyes General: appearance normal, both eyes and all related structures Neck Neck: Yes normal visual inspection Chest Chest palpation & inspection: normal inspection of the chest Resp Effort & Inspection: normal respiratory effort and able to speak in complete sentences Telehealth Telehealth Location of provider rendering services: practice address Location of patient: address on file Patient Identification confirmed using: Name, : Yes Telehealth method: voice only Patient verbally consented to treatment: Yes Patient verbally consented to billing insurance company: Yes Patient informed of any privacy concerns related to visit: Yes Assessment & Plan Assessment & Plan (1) Prostatitis: Code(s): N41.9 - Inflammatory disease of prostate, unspecified Category: Medical Plan Six-month follow-up PSA tele Orders: Orders PSA,Total (Free>4and<10) 6 Months N41.9 - Inflammatory disease of prostate, unspecified Patient Instructions: Imaging studies, laboratory and physical exam results were discussed and reviewed in detail. No major barriers to patient understanding were identified. An opportunity to ask questions regarding the treatment plan was provided. All questions were answered. The patient expressed understanding and agreement with the above treatment plan. The patient is aware they should contact our office by phone for worsening of their current condition or the appearance of new urologic symptoms. Compliance is encouraged with any medications and followup testing that is ordered. It is a privilege to participate in the urologic care of your patient. If you have any questions or concerns regarding treatment for the above conditions, or other urologic issues, please do not hesitate to contact me. The office telephone contact is [phone]. This note is constructed using voice recognition software. While every effort has been made to ensure accuracy retail interior designer errors may have been included. Yours sincerely, Dr Christopher Thayer MD, [facility] - Urology Providers of Expert, Compassionate Care for the Genitourinary System Coding Level of Care Code Tele Est Pt Level 3 (36483) Diagnoses Prostatitis N41.9
== END 2024-07-13 09:07 | disposition home or self-care (01) ==
LOC: HO.HUSH 08:40
PROVIDERS: PCP Internal Medicine; Visit Provider Urology
DX: N41.9 Inflammatory disease of prostate, unspecified (principal)
CPT/HCPCS: 99442

== ENCOUNTER 2024-09-20 08:57 | Outpatient (AMB) | payer OTHER, SELFPAY ==
--- NOTE | 2024-09-20 09:08 | MHC.PC.OV ---
Vital Signs 09/20/24 09:13 Height 5 ft 8 in Weight 196 lb BMI 29.8 BP 128/54 L Blood Pressure Location Rt brachial Pulse 63 Pulse Source Pulse Oximeter Temp 97.7 F Pulse Oximetry (%) 99 Intake Visit Reasons: physical Intake Note: here for physical also comlaining of cough Allergies Seasonal Allergies Allergy (Verified 09/20/24 09:16) Unknown Penicillins Adverse Reaction (Unknown, Verified 09/20/24 09:16) unknown [facility] Medical History (Updated 09/20/24 @ 09:50 by Hank Olivas MD) Urinary retention BPH (benign prostatic hyperplasia) Elevated cholesterol Diverticulosis HTN (hypertension) Thrush, oral Asthma KARLI on CPAP Obesity (BMI 30-39.9) Surgical History (Updated 09/20/24 @ 09:48 by Hank Olivas MD) History of colonoscopy with polypectomy (12/23/22) H/O colonoscopy Social History Alcohol intake: current Alcohol intake frequency: holidays/special occasions only Patient Tobacco Use Status: Never used Tobacco Physical exam (Primary Care) BMI result Body Mass Index 29.8 Tobacco/Smoking Status: Tobacco use Status Patient Tobacco Use Status Never used Tobacco 09/20/24 09:10 Const General: cooperative and healthy appearing Nutritional Appearance: well nourished Orientation/consciousness: patient oriented x3 Limitations: no limitations HENMT Head: Yes normal to inspection Eyes General: appearance normal, both eyes and all related structures Neck Neck: Yes normal visual inspection Chest Chest palpation & inspection: normal palpation of entire chest wall Resp Effort & Inspection: normal respiratory effort Neuro General: patient oriented x3 Coding Level of Care Code New Pt Level 4 (85403) New Pt Prev Care 40-64y(31092) Diagnoses KARLI on CPAP G47.33; Z99.89 Osteoarthritis of right hip M16.11 Painful arc syndrome of right shoulder M75.101 HTN (hypertension) I10 Annual physical exam Z00.00 Upper respiratory tract infection J06.9 Assessment & Plan Assessment & Plan (1) KARLI on CPAP: Comment: THE REPEAT STUDY SHOWED THAT HIS TOTAL SLEEP TIME AHI WAS 9, WHICH PUTS HIM IN CATEGORY OF MILD KARLI. Code(s): G47.33 - Obstructive sleep apnea (adult) (pediatric); Z99.89 - Dependence on other enabling machines and devices Category: Medical Plan: Patient no longer uses the CPAP machine (2) Osteoarthritis of right hip: Code(s): M16.11 - Unilateral primary osteoarthritis, right hip Category: Medical Plan: Condition is stable. No active treatment currently. (3) Painful arc syndrome of right shoulder: Code(s): M75.101 - Unspecified rotator cuff tear or rupture of right shoulder, not specified as traumatic Category: Medical Plan: Condition is stable, Will continue to monitor. (4) HTN (hypertension): Code(s): I10 - Essential (primary) hypertension Category: Medical Plan: Blood pressure in range. Will check fasting labs (5) Annual physical exam: Code(s): Z00.00 - Encounter for general adult medical examination without abnormal findings Plan: Upto date on colonoscopy. (6) Upper respiratory tract infection: Code(s): J06.9 - Acute upper respiratory infection, unspecified Plan: Antibiotics ordered. Increase fluid intake. Tylenol for aches and pains. If symptoms worsen, follow-up here for a recheck. Plan History of Present Illness 63 yr old presents to the office for an annual physical, In addition he is complaining of a cough. The cough began over the weekend after exposure to his four young grandchildren who had symptoms of coughing and sneezing. Following their visit, the patient developed a phlegmy cough. His also reported similar symptoms after the grandchildren's visit. The patient has a history of painful shoulders due to an old injury during a football practice incident, which was treated with a cortisone injection three years ago. The shoulder pain has recurred intermittently. He also reports having previously received some form of hip injection treatment approximately a year ago, which was advised to be effective for about a year. The patient has experienced significant weight loss, now weighing under 200 pounds. His history of sleep apnea was managed well with a CPAP machine but has since discontinued its use following weight loss, as advised by another physician. 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 - Engages with family, particularly involved in activities with grandchildren. - Experienced significant weight loss and change in health habits. Review of Systems - Respiratory: Reports acute phlegmy cough. - Musculoskeletal: Reports intermittent shoulder pain; reports hip discomfort. - Genitourinary: Denies any trouble with urination or discharge. - Neurological: Denies issues with vision, halos, or night-time driving impairment. Physical Exam General: Appearance normal, both eyes and all related structures Nutritional Appearance: Well nourished, significant weight loss noted Orientation/consciousness: Patient oriented x3 Limitations: No limitations, but reports shoulder and hip pain affecting daily activities Head: Normal to inspection Neck: Normal visual inspection Chest: Normal palpation of entire chest wall Respiratory: Phlegmy cough noted, normal respiratory effort Neurology: Patient oriented x3 Results Plan - Order complete fasting blood work. - Provide antibiotic treatment for respiratory symptoms. - Continue current management for shoulder pain and hip discomfort since the patient reports minimal impact on daily life. - No changes to current prescriptions noted or required at this time. - Follow up on past colonoscopy records and review. Patient was informed and verbally consented to the use of an ambient scribe for clinic note documentation during this visit. Discussion Notes I discussed with the patient the current symptoms and management of the cough, likely of a viral etiology. We agreed on starting an antibiotic to cover any potential bacterial component. We reviewed options for managing his shoulder and hip pain, emphasizing that continued weight loss might reduce joint stress. We reiterated the importance of periodic blood work to monitor overall health status. There was no immediate need for restarting sleep apnea treatment with CPAP, given the resolution of symptoms after weight loss. We discussed the completion and review of past colonoscopy screening records. I addressed that if the patient's daily activities remain unaffected by joint discomfort, we may not need to pursue further intervention unless symptoms worsen. Patient Instructions - Complete fasting blood work as ordered at the earliest convenience. - Start the prescribed antibiotic as directed for the cough. - Maintain current activity levels unless joint pain increases. - Monitor respiratory symptoms and contact the office if they persist or worsen. - Bring any updates from prior colonoscopy results to the next visit. - Follow current prescription regimen without changes. Orders: Orders Complete Blood Count no Diff Today E78.00 - Pure hypercholesterolemia, unspecified Lipid Panel Today E78.00 - Pure hypercholesterolemia, unspecified Thyroid Stimulating Hormone Today E78.00 - Pure hypercholesterolemia, unspecified Basic Metabolic Panel Today E78.00 - Pure hypercholesterolemia, unspecified Liver Panel Today E78.00 - Pure hypercholesterolemia, unspecified UA and rflx microscopic Today E78.00 - Pure hypercholesterolemia, unspecified Medications: New azithromycin take 500 mg today (day 1), then 250 mg for 4 days (days 2-5) PO 6 tabs 0RF
[2024-09-20 09:13] VITALS: BP 128/54; PULSE 63; TEMP 36.5; O2SAT 99; BMI 29.8
--- OUTSIDE RECORDS SUMMARY | 2024-09-20 09:28 | XMS_ITS | Patient Health Record ---
Author Organization [facility] brenda Carrie Address [address] [facility] [place] [address] Care Team Providers Care Street Sweeper Name Role Phone Qamar Fang MD Primary Care Provider Unavail Abdiel Barriga Unavailable [phone] Allergies Allergen (clinical drug ingredient) Drug/Non Drug Allergy documented on EMR Reaction Allergy Type Onset Date Status Aloe (uncoded) rash Allergy Activ e Reason For Referral No Information Medications Medication SIG (Take, Route, Frequency, Duration) Notes Start Date End Date Status Losartan Potassium 100 MG 1 tablet Orally Once a day Active Simvastatin 40 MG 1 tablet in the even ing Orally Once a day Active Social History Tobacco Use: Social History Observation Description Date Details (start date - stop date) Never Smoker NA - NA Tobacco Use/Smoking Question Answer Notes Are you a: nonsmoker Additional Findings: Tobacco Non-User Current no n-smoker Tobacco use other than smoking: Question Answer Notes Are you an other tobacco user? No Encounters Encounter Location Date Provider Diagnosis [facility] [address] [place] [address] 10/20/2023 Abdiel Marin Plan Of Treatment Pending Test Test Name Order Date [id number] Destruction, 09-2005/04/2017 [id number] Destruction, 09-2006/10/2017 [id number] Destruction, 09-2007/09/2017 44443 I&D ABSCESS- SIMPLE,SINGLE 017 Insurance Providers Payer Name Payer Address Payer Phone Subscriber Number Group Number Insured Name Patient Relationship to Insured Coverage Start Date Coverage End Date [facility] ([facility]) [address] [place] [id number] Henrique Patel Self - patient is the insured Medical (General) History Medical History History ICD Code asthma Warts
--- OUTSIDE RECORDS SUMMARY | 2024-09-20 09:28 | XMS_ITS ---
Author Organization [facility] Address [address] [place] [address] Care Team Providers Care Boat Tester Name Role Phone Qamar Fang MD Primary Care Provider Unavail Abdiel Barriga [phone] REASON FOR VISIT 2 pairs Sof Asia M 9-10.5 Encounters Encounter Location Date Provider Diagnosis [facility] [address] [place] [address] 06/08/2023 Abdiel Marin Plan Of Treatment No Information Progress Notes * Henrique PATEL SDOB:[birth year] (62 yo M)Acc No.[id number]:06/08/2023 Patient:?Henrique Patel Gene :1960???Age:62 Y???Sex:Male Address:[address] [place] [address] * true * Date:? Generated for Angelai desire/Pete/eTransmitting on:?09/20/2024 09:28 AM EST
--- OUTSIDE RECORDS SUMMARY | 2024-09-20 09:28 | XMS_ITS ---
Author Organization [facility] Address [address] [place] [address] Care Team Providers Care Field Appraiser Name Role Phone Qamar Fang MD Primary Care Provider Unavail Abdiel Barriga [phone] REASON FOR VISIT 2 pairs Sof Asia M 9-10.5 Encounters Encounter Location Date Provider Diagnosis [facility] [address] [place] [address] 10/20/2023 Abdiel Marin Plan Of Treatment No Information Progress Notes * Henrique PATEL SDOB:[birth year] (62 yo M)Acc No.[id number]:10/20/2023 Patient:?Henrique Patel Gene :1960???Age:62 Y???Sex:Male Address:[address] [facility] [place] [address] * true * Date:? Generated for Angelai desire/Pete/eTransmitting on:?09/20/2024 09:28 AM EST
== END 2024-09-20 09:53 | disposition home or self-care (01) ==
LOC: HO.HMCSH 08:57
PROVIDERS: PCP Internal Medicine; Visit Provider Internal Medicine
DX: Z00.00 Encounter for general adult medical examination without abnormal findings (principal); G47.33 Obstructive sleep apnea (adult) (pediatric); Z99.89 Dependence on other enabling machines and devices; M16.11 Unilateral primary osteoarthritis, right hip; M75.101 Unspecified rotator cuff tear or rupture of right shoulder, not specified as traumatic; I10 Essential (primary) hypertension; J06.9 Acute upper respiratory infection, unspecified

== ENCOUNTER 2024-10-15 07:52 | Outpatient (REF) | payer OTHER, SELFPAY ==
--- OUTSIDE RECORDS SUMMARY | 2024-10-15 07:54 | XMS_ITS | Clinical Summary ---
Author Organization [facility] Address [address] [place] [address] Care Team Providers Care Senior Talent Management Consultant Name Role Phone Unavailable Primary Care Provider Unavailabl e Source Comments PLEASE NOTE, if this patient is a minor, it may be UNLAWFUL to discuss sensitive information that is contained in these records (such as FAMILY PLANNING, MENTAL HEALTH or SUBSTANCE ABUSE) with the minor patient's parent or other person without the patient's specific authorization.[facility] Immunizations Name Administration Dates Next Due Moderna COVID-19 Vaccine, re d cap blue label, 12+ Primary Series 01/01/2021,12/05/2020 Social History Tobacco Use Types Packs/Day Years Used Date Smoking Tobacco: Never Assessed Social Connections Answer Date Recorded Social Connections and Isolation 0 12/05/2020 Financial Resource Strain Answer Date R ecorded Financial Resource Strain 0 2020 Stress Answer Date Recorded Stress 0 12/05/2020 Physical Activity Answer Date Recorded Physical Activity 0 12/05/2020 Food Insecurity Answer Date Recorded Food 0 12/05/2020 Transportation Needs Answer Date Record ed Transportation 0 12/05/2020 Housing Stability Answer Date Recorded Housing 0 12/05/2020 Safety and Environment Answer Date Skyler rded Safety 0 12/05/2020 Utilities Answer Date Recorded Utilities 0 12/05/2020 Employment Answer Date Recorded Employment 0 12/05/2020 Sex and Gender Information Value Date Recorded Sex Assigned at Not on file Legal Sex Male 12:28 PM PDT Gender Identity Not on file Sexual Orientation Not on file Plan of Treatment Health Maintenance Due Date Last Done Comments Diabetes Screening 1960 Hepatitis C Screening 1961 Lipid Screening 1961 Tobacco Screening 1961 HIV Screening 1976 Annual Preventive Care Visit 12/03/1979 Hypertension Screening (#1) 12/03/1979 Imm-DTaP/Tdap/Td (1 - Tdap) 1980 CT Colonography 2006 Colonoscopy 2006 Colorectal Cancer Screening 2006 FIT/gFOBT 2006 Fecal DNA 2006 Flexible Sigmoidoscopy 2006 Imm-Zoster, Recombinant (1 of 2) 12/03/2011 Alcohol and Drug Screen 09/07/2023 Depression Annual Screen 09/07/2023 Ppe-EJOTH-07 ( season) 2024 021, 12/05/2020 Imm-Influenza (#1) 2024 07/17/2020, 1 10/30/2018, 09/08/2017 Insurance ITS [employer] ([employer])
--- OUTSIDE RECORDS SUMMARY | 2024-10-15 07:54 | XMS_ITS ---
Author Organization Qamar Fang DO, FACP Address [address] [place], [place] [id number] Care Team Providers Care Collar Worker Name Role Phone Qamar Fang Primary Care Provider REASON FOR VISIT physical Encounters Encounter Location Date Provider Diagnosis Qamar Fang DO, FACP [address] [place] [phone] 09/23/2023 Qamar Fang PLAN OF TREATMENT No Information
--- OUTSIDE RECORDS SUMMARY | 2024-10-15 07:54 | XMS_ITS ---
Author Organization Qamar Fang DO, FACP Address [address] [place], [place] [address] Care Team Providers Care Accounting Representative Name Role Phone Qamar Fang Primary Care Provider REASON FOR VISIT physical Encounters Encounter Location Date Provider Diagnosis Qamar Fang DO, FACP [address] [place] [phone] 09/20/2024 Qamar Fang PLAN OF TREATMENT No Information
--- OUTSIDE RECORDS SUMMARY | 2024-10-15 07:54 | XMS_ITS ---
Author Organization [facility] Address [address] [place] [address] Care Team Providers Care Green Pipefitter Name Role Phone Qamar Fang MD Primary Care Provider Unavail Abdiel Barriga [phone] REASON FOR VISIT 2 pairs Sof Asia M 9-10.5 Encounters Encounter Location Date Provider Diagnosis [facility] [address] [place] [address] 10/20/2023 Abdiel Marin Plan Of Treatment No Information Progress Notes * Henrique PATEL SDOB:[birth year] (62 yo M)Acc No.[id number]:10/20/2023 Patient:?Henrique aPtel Gene :1960???Age:62 Y???Sex:Male Address:[address] [facility] [place] [address] * true * Date:? Generated for Angelai desire/Pete/eTransmitting on:?10/15/2024 07:54 AM EST
--- OUTSIDE RECORDS SUMMARY | 2024-10-15 07:54 | XMS_ITS ---
Author Organization [facility] Address [address] [place] [address] Care Team Providers Care Customer Service Receptionist Name Role Phone Qamar Fang MD Primary Care Provider Unavail Abdiel Barriga [phone] REASON FOR VISIT 2 pairs Sof Asia M 9-10.5 Encounters Encounter Location Date Provider Diagnosis [facility] [address] [place] [address] 06/08/2023 Abdiel Marin Plan Of Treatment No Information Progress Notes * Henrique PATEL SDOB:[birth year] (62 yo M)Acc No.[id number]:06/08/2023 Patient:?Henrique Patel Gene :1960???Age:62 Y???Sex:Male Address:[address] [facility] [place] [address] * true * Date:? Generated for Angelai desire/Pete/eTransmitting on:?10/15/2024 07:53 AM EST
--- OUTSIDE RECORDS SUMMARY | 2024-10-15 07:54 | XMS_ITS | Patient Health Record ---
Author Organization [facility] [place] Address [address] [facility] [place] [address] Care Team Providers Care Round Cutter Operator Name Role Phone Qamar Fang MD Primary Care Provider Unavail Abdiel Barriga Unavailable [phone] Allergies Allergen (clinical drug ingredient) Drug/Non Drug [...] No Encounters Encounter Location Date Provider Diagnosis [facility] [address] [place] [address] 10/20/2023 Abdiel Marin Plan Of Treatment Pending Test Test Name Order Date [id number] Destruction, -05/04/2017 [id number] Destruction, 09-2006/10/2017 [id number] Destruction, 09-2007/09/2017 91140 I&D ABSCESS- SIMPLE,SINGLE 017 Insurance Providers Payer Name Payer Address Payer Phone Subscriber Number Group Number Insured Name Patient Relationship to Insured Coverage Start Date Coverage End Date [facility] ([facility]) [address] [place] [id number] Henrique Patel Self - patient is the insured Medical (General) History Medical History History ICD Code asthma Warts
--- OUTSIDE RECORDS SUMMARY | 2024-10-15 07:55 | XMS_ITS | Patient Health Record ---
Author Organization [facility] Address [address] [place] [address] Care Team Providers Care Hospice Music Therapist Name Role Phone Leoncio (RETIRED) Qamar LUGO Primary Care Provid er Unavailable Timothy Arthur Jr Unavailable ALLERGIES Allergen (clinical drug ingredient) Drug/Non Drug Allergy documented on EMR Reaction Allergy Type Onset Date Status Seasonal (uncoded) Unknown Allergy A ctive REASON FOR REFERRAL No Information MEDICATIONS Medication SIG (Take, Route, Frequency, Duration) Notes Start Date End Date Status Claritin 10 MG 1 tablet Orally Once a day for 30 day(s) Active Aspirin Adult Low Dose 81 MG 1 tablet Orally Once a day for 30 day(s) Active MiraLax (colon prep) 17 GM/SCOOP mixed with Gatorade or Crystal Light Orally begin at 5:00 p.m. the day before the procedure for 1 day 11/21/2022 Active Valsartan 160 MG Oral for 90 A ctive Simvastatin 40 MG 1 tablet in the even ing Orally Once a day Active Advair Diskus 250-50 MCG/ACT Inhalation for 90 Active Terazosin HCl 5 MG Oral for 30 Active SOCIAL HISTORY Sex Assigned At : Social History Observation Description Sex Assigned At Unknown PROBLEMS Problem Type ICD Code Onset Dates Problem Status W/U Status Risk SNOMED Code Notes Problem Colon cancer screening (V76.51) Active confirmed Colon can cer screening (950490518) Problem Colon cancer screening (Z12.11) Active confirmed 495650151 Problem Encounter for other preprocedural examination (Z01.818) Active confirmed 476491691 Problem Long-term use of aspirin therapy (Z79.82) Active confirmed 862464348 PLAN OF TREATMENT Future Test Test Name Order Date COLONOSCOPY 05/21/2012 COLONOSCOPY 11/21/2022 Insurance Providers Payer Name Payer Address Payer Phone Subscriber Number Group Number Insured Name Patient Relationship to Insured Coverage Start Date Coverage End Date [facility] [address] [place] [address] [id number] JAD ABREU Self - patient is the insured MEDICAL (GENERAL) HISTORY Medical History History ICD Code HTN Colonoscopy August/2012, normal, diver ticulosis, ten-year followup sleep apnea, uses CPAP at night.- no lety emma since loss of wt 2022 asthma- mild since loss wt 2022 Elevated cholesterol BPH with urinary retention Surgical History Surgery Date(Month/Year) fully catheter 08/2022 - dr. monterroso
--- OUTSIDE RECORDS SUMMARY | 2024-10-15 07:55 | XMS_ITS ---
Author Organization Qamar Fang DO, FACP Address [address] [place], [place] [address] Care Team Providers Care Automation Test Developer Name Role Phone Qamar Fang Primary Care Provider REASON FOR VISIT Needs call back from office MEDICATIONS Medication SIG (Take, Route, Fr equency, Duration) Notes Start Date End Date Status Azithromycin 250 MG [address] day, then 1 tablet daily for 4 days Orally Once a day for 5 day(s) 04/12/2024 Active Encounters Encounter Location Date Provider Diagnosis Qamar Fang DO [facility] [address] [place], [place] [phone] 04/12/2024 Qamar aFng PLAN OF TREATMENT Medication Medication Name Sig Start Date Stop Date Notes Azithromycin 250 MG 2 tablets on the day, then 1 tablet daily for 4 days Orally Once a day for 5 day(s) 04/12/2024
[2024-10-15 09:00] LABS: Hematocrit 40.9 % (42.0-52.0); Hemoglobin 13.3 g/dl (14.0-18.0); Mean Corpuscular HGB Conc 32.5 g/dl (31.0-36.0); Mean Corpuscular Hemoglobin 30.3 pg (27.0-33.0); Mean Corpuscular Volume 93.2 fL (80.0-98.0); Mean Platelet Volume 9.3 fL (9.4-12.4); Platelet Count 117 X10*3/uL (160-400); Red Blood Count 4.39 X10*6/uL (4.60-5.80); Red Cell Distribution Width 12.8 % (11.0-16.0); White Blood Count 3.2 X10*3/uL (4.8-10.8)
[2024-10-15 09:05] LABS: Appearance Urine Clear; Color Urine Yellow; Glucose Urine UA Negative (Negative); Leukocyte Esterase Urine Trace (Negative); Nitrite Urine Negative (Negative); UMIC TRIGGER UA YES; Urine Blood Negative (Negative); Urine Ketones Negative (Negative); Urine Protein Negative (Neg-Trace)
[2024-10-15 09:10] LABS: Bacteria Urine None Seen (None Seen); Hyaline Casts Urine 0-2 /LPF (0-2); RBC Urine 0-2 /HPF (0-2); Squamous Epithelial Cell Urine 0-2 /HPF (0-2); WBC Urine 0-5 /HPF (0-5)
[2024-10-15 09:58] LABS: Alanine Aminotransferase 19 U/L (0-40); Albumin Level 4.4 g/dL (3.5-5.0); Alkaline Phosphatase 83 U/L (39-117); Anion Gap 12 (12-20); Aspartate Amino Transferase 31 U/L (5-37); Bilirubin Direct 0.2 mg/dL (0.0-0.5); Bilirubin Total 0.4 mg/dL (0.0-1.0); Blood Urea Nitrogen 12 mg/dL (9-16); Calcium 9.5 mg/dL (8.4-10.2); Carbon Dioxide 26 mmol/L (22-29); Chloride 107 mmol/L (96-108); Cholesterol 152 mg/dL (<200); Estimated Glomerular Filt Rate > 60; Glucose Random 92 mg/dL (60-115); HDL Cholesterol 69 mg/dL (>40); LDL Cholesterol Calculated 76 mg/dL (<100); Potassium 5.1 mmol/L (3.3-5.1); Sodium 140 mmol/L (135-145); Total Protein 7.7 g/dL (6.5-8.0); Triglycerides 38 mg/dL (<150)
[2024-10-15 10:18] LABS: Thyroid Stimulating Hormone 1.45 uIU/mL (0.32-4.0)
== END 2024-10-15 07:53 | disposition home or self-care (01) ==
LOC: HO.LAB 07:52
PROVIDERS: PCP Internal Medicine; Visit Provider Internal Medicine
DX: E78.00 Pure hypercholesterolemia, unspecified (principal)
CPT/HCPCS: 36415; 80048; 80061; 80076; 81001; 84443; 85027

== ENCOUNTER 2025-02-07 14:15 | Outpatient (AMB) | payer OTHER, SELFPAY ==
[2025-02-07 14:14] VITALS: BP 131/63; PULSE 66; RESP 16; TEMP 36.5; O2SAT 98; BMI 30.6
--- NOTE | 2025-02-07 14:14 | MHC.PC.OV ---
Vital Signs 02/07/25 14:14 Height 5 ft 8 in Weight 201 lb BMI 30.6 BP 131/63 Respiration 16 Pulse 66 Pulse Source Pulse Oximeter Temp 97.7 F Temp Source Temporal Artery Scan Pulse Oximetry (%) 98 Oxygen Delivery Method Room Air Intake Visit Reasons: Memory loss Reactor Fueling Supervisor Required: No Accompanied by: Spouse Allergies Seasonal Allergies Allergy (Verified 02/07/25 14:14) Unknown Penicillins Adverse Reaction (Unknown, Verified 02/07/25 14:14) unknown Tobacco use date assessed: 02/07/25 Dental Screening Dental Screen Date: 02/07/25 Did you have a dental visit in the last 12 months?: Yes Did you have a dental problem in the last 6 months where you did not have access to dental care?: No Was dental information given to patient?: Patient has dentist [facility] Medical History (Updated 02/07/25 @ 15:28 by Hank Olivas MD) Memory loss Urinary retention BPH (benign prostatic hyperplasia) Elevated cholesterol Diverticulosis HTN (hypertension) Thrush, oral Asthma KARLI on CPAP Obesity (BMI 30-39.9) Surgical History History of colonoscopy with polypectomy (12/23/22) H/O colonoscopy Family History (Updated 02/07/25 @ 14:25 by MARIA ELENA Chin) Father Stroke Mother Smoker COPD (chronic obstructive pulmonary disease) Social History (Updated 02/07/25 @ 14:25 by MARIA ELENA Chin) Housing: House Alcohol intake: current Alcohol intake frequency: holidays/special occasions only Patient Tobacco Use Status: Never used Tobacco service: No Current occupational status: employed Cognitive needs: No Hearing needs: No Vision needs: Yes (rx glasses) Questionnaire PHQ-9 Over the last 2 weeks, how often have you been bothered by any of the following problems? 1. Little interest or pleasure in doing things: not at all 2. Feeling down, depressed, or hopeless: not at all 3. Trouble falling or staying asleep, or sleeping too much: not at all 4. Feeling tired or having little energy: not at all 5. Poor appetite or overeating: not at all 6. Feeling bad about yourself - or that you are a failure or have let yourself or your family down: not at all 7. Trouble concentrating on things, such as reading the newspaper or watching television: not at all 8. Moving or speaking so slowly that other people could have noticed. Or the opposite - being so fidgety or restless that you have been moving around a lot more than usual: not at all 9. Thoughts that you would be better off or of hurting yourself in some way: not at all Total score: 0 Source: Developed by Drs. Qamar Evans, Joanne Curry, George Chambers and colleagues, with an educational fidel from [employer]. Thrive Questionnaire Date Thrive assessed: 02/07/25 I am a: Patient What is your living situation today?: I have a steady place to live Within the past 12 months, did the food you bought not last and you didn't have the money to get more?: Never true Within the past 12 months, did you worry whether your food would run out before you got money to buy more?: Never true Do you have trouble paying for medicines?: No Do you have trouble getting transportation to medical appointments?: No Do you have trouble paying your heating and electricity bill?: No Do you have trouble taking care of your child, family member or friend?: No Do you have trouble with day-to-day activities such as bathing, preparing meals, shopping, managing finances, etc.?: No Are you currently unemployed and looking for a job?: No Are you interested in more education?: No Please select the resources that you would like help with: None THRIVE Score: 0 AUDIT C Alcohol Use Questionnaire (AUDIT-C) 1. How often do you have a drink containing alcohol?: Monthly or less 2. How many drinks containing alcohol do you have on a typical day when you are drinking?: 1 or 2 3. How often do you have six or more drinks on one occasion?: Never Total Score: 1 IRENE-7 AMB Questionnaire IRENE-7 Date IRENE - 7 assessed: 02/07/25 Feeling nervous, anxious, or on edge: 0 = Not at all Not being able to stop or control worryin = Not at all Worrying too much about different things: 0 = Not at all Trouble relaxin = Not at all Being so restless that it is hard to sit still: 0 = Not at all Becoming easily annoyed or irritable: 0 = Not at all Feeling afraid as if something awful might happen: 0 = Not at all Total IRENE-7 score (0-4 normal; 5-9 mild; 10-14 moderate; 15-21 severe): 0 Source: Developed by Drs. Qamar Evans, Joanne Curry, George Chambers and colleagues, with an educational fidel from [employer]. Physical exam (Primary Care) Vital Signs: Last Vital Signs Temp 97.7 F 02/07/25 14:14 Pulse 66 02/07/25 14:14 Resp 16 02/07/25 14:14 BP 131/63 02/07/25 14:14 Pulse Ox 98 02/07/25 14:14 Oxygen Delivery Method Room Air 02/07/25 14:14 BMI result Body Mass Index 30.6 Tobacco/Smoking Status: Tobacco use Status Tobacco use date assessed 02/07/25 02/07/25 14:16 Patient Tobacco Use Status Never used Tobacco 02/07/25 14:25 PHQ-9: PHQ-9 Score PHQ-9: Total score 0 02/07/25 14:26 Thrive Assessment: Date of Thrive Assessment Date Thrive assessed 02/07/25 02/07/25 14:16 Coding Level of Care Code Est Pt Level 4 (41612) Complex EM visit Add On G2211 Diagnoses Memory loss R41.3 Assessment & Plan Assessment & Plan (1) Memory loss: Code(s): R41.3 - Other amnesia Category: Medical Plan: History of Present Illness - The patient is a 64-year-old male presenting with memory problems 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 - Reports a period of memory difficulties for several months, potentially extending to a year, significantly affecting work performance. - Recalls incidents of impaired multitasking and forgetfulness, particularly during courtroom duties such as conducting colloquies. - On administrative leave partly due to these cognitive issues. - Describes specific concern with recalling important dates, often needing to ask again and experiencing disruptions in the flow of court proceedings leading to confusion. - Minimal impact on daily activities; denies events such as getting lost or being unable to navigate home. - Confirms mild forgetfulness when remembering car parking locations or assembling items, but these have been long-term issues. - One of his children has noticed an increase in forgetfulness, largely affecting professional efficiency. 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 - Discussed minor daily forgetfulness potentially impacting functional capacity in social or work settings. - Reports one family member noticing memory deterioration affecting his professional duties. Review of Systems - Neurological: Reports memory problems, difficulty with multitasking. - Cognitive: Reports forgetfulness concerning dates and names, denies losing direction while driving. Physical Exam General: Cooperative and healthy appearing Nutritional Appearance: Well nourished Orientation/consciousness: Patient oriented x3 Limitations: No limitations Head: Normal to inspection General: Appearance normal, both eyes and all related structures Neck: Normal visual inspection Chest: Normal palpation of entire chest wall Respiratory: N ormal respiratory effort Neurology: Patient oriented x2, difficulty with memory recall, forgetfulness, difficulty with multitasking, no issues with basic activities like driving or flushing the toilet, able to perform basic math with some difficulty, partial recall of objects (pen, watch, pump). Recalled only two of the three objects. Results Plan 1. Memory Impairment - Considering referral to a neurologist for further evaluation and management. - Basic cognitive testing performed to assess current memory status. - Monitoring recommended to determine the impact on professional capabilities. 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 We discussed the potential need for a neurological evaluation to understand the underlying cause of his memory issues and appropriate management strategies. I addressed the potential for an outside professional opinion to gain control over cognitive symptoms for better work performance. We talked about conducting basic cognitive tests to assess his current memory state and its interference in daily work and life activities. The patient expressed interest in pursuing further neurological evaluation to possibly identify underlying causes and therapeutic options. Follow-up discussions may be needed to adjust any planned interventions based on further assessments. Patient Instructions - Consider scheduling an appointment with a neurologist for further evaluation of memory issues. - Try to minimize multitasking and focus on completing one task at a time. - Regularly monitor your memory performance, particularly in relation to professional duties. - Write down important dates and reminders to aid memory in day-to-day tasks. - Keep track of any changes or improvements in memory or cognitive function. - Follow up on any recommended testing or specialist referrals for further treatment and management. Orders: Orders Syphilis Screen Today R41.3 - Other amnesia Vitamin B12 and Folate Today R41.3 - Other amnesia CT head/brain wo IV con Today R41.3 - Other amnesia Referrals Neurology Referral R41.3 - Other amnesia Medications: New loratadine (Claritin) 10 mg PO DAILY 60 tabs 0RF fluticasone propionate 50 mcg/actuation (Flonase Allergy Relief) administer into each nostril 1 spray intranasal DAILY 9.9 mL 1RF
--- OUTSIDE RECORDS SUMMARY | 2025-02-07 16:04 | XMS_ITS | Clinical Summary ---
Author Organization [facility] Address [address] [place] [address] Care Team Providers Care Winding Inspector Name Role Phone Unavailable Primary Care Provider Unavailabl e Source Comments PLEASE NOTE, if this patient is a minor, it may be UNLAWFUL to discuss sensitive information that is contained in these records (such as FAMILY PLANNING, MENTAL HEALTH or SUBSTANCE ABUSE) with the minor patient's parent or other person without the patient's specific authorization.[facility] Immunizations Immunization Administration Dates Next Due Moderna COVID-19 Vaccine, [...] Health Maintenance Due Date Last Done Comments Anxiety Screening 1960 Diabetes Screening 1961 Hepatitis C Screening 1961 Lipid Screening 1961 Tobacco Screening 1961 HIV Screening 1976 Hypertension Screening (#1) 12/03/1979 Imm-DTaP/Tdap/Td (1 - Tdap) 1980 CT Colonography 2006 Colonoscopy 2006 Colorectal Cancer Screening 2006 FIT/gFOBT 2006 Fecal DNA 2006 Flexible Sigmoidoscopy 2006 Imm-Zoster, Recombinant (1 of 2) 12/03/2011 Mur-NWORV-97 ( season) 2024 021, 12/05/2020 Imm-Influenza (#1) 2024 07/17/2020, 1 10/30/2018, 09/08/2017 Alcohol and Drug Screen 09/07/2024 Depression Annual Screen 09/07/2024 Insurance [employer] [facility]
== END 2025-02-07 14:57 | disposition home or self-care (01) ==
LOC: HO.HMCSH 14:15
PROVIDERS: PCP Internal Medicine; Visit Provider Internal Medicine
DX: R41.3 Other amnesia (principal)

== ENCOUNTER → 2025-02-07 14:15 | Outpatient (BNVA) | payer OTHER, SELFPAY | PROVIDERS: PCP Internal Medicine; Visit Provider Internal Medicine | DX: Z13.89 Encounter for screening for other disorder (principal) ==

== ENCOUNTER 2025-02-11 07:39 | Outpatient (REF) | payer OTHER, SELFPAY ==
--- OUTSIDE RECORDS SUMMARY | 2025-02-11 07:41 | XMS_ITS | Clinical Summary ---
Author Organization [facility] Address [address] [place] [address] Care Team Providers Care Office 365 Consultant Name Role Phone Unavailable Primary Care [...] 2006 Imm-Zoster, Recombinant (1 of 2) 12/03/2011 [id number] ( season) 2024 021, 12/05/2020 Imm-Influenza (#1) 2024 07/17/2020, 1 10/30/2018, 09/08/2017 Alcohol and Drug Screen 09/07/2024 Depression Annual Screen 09/07/2024 Insurance [employer] ([employer])
[2025-02-11 09:50] LABS: Syphilis Screen Nonreactive (Nonreactive)
[2025-02-11 09:54] LABS: PSA,Total (Free>4and<10) 4.99 ng/mL (0.00-4.00)
[2025-02-11 09:58] LABS: Folate 9.7 ng/mL (> or = 4.0); Vitamin B12 378 pg/mL (200-900)
[2025-02-13 14:24] LABS: Free Prostate Spec Ag 1.4 ng/mL; Percent Free Prostate Spec Ag 32 % (calc) (>25); Prostate Specific Ag Total 4.4 ng/mL (< OR = 4.0)
== END 2025-02-11 07:40 | disposition home or self-care (01) ==
LOC: HO.LAB 07:39
PROVIDERS: Urology; PCP Internal Medicine; Visit Provider Internal Medicine
DX: Z12.5 Encounter for screening for malignant neoplasm of prostate (principal); N41.9 Inflammatory disease of prostate, unspecified; R41.3 Other amnesia
CPT/HCPCS: 36415; 82607; 82746; 84153; 84154; 86780

== ENCOUNTER 2025-02-21 06:49 | Outpatient (REF) | payer OTHER, SELFPAY ==
--- NOTE | ~2025-02-21 | CT_ITS ---
CLINICAL HISTORY: R41.3 - Other amnesia CT head without contrast Comparison: None Findings: No acute hemorrhage, acute major vascular distribution infarct, intracranial mass, midline shift or hydrocephalus. Cavum septum pellucidum, variant anatomy. Visualized paranasal sinuses and mastoid air cells normal. Orbits unremarkable. The cranium appears intact. Superficial soft tissue is unremarkable. Impression: 1. No acute intracranial finding. This document has been electronically signed by: Mera West MD on 02/21/2025 13:49:48
== END 2025-02-21 06:50 | disposition home or self-care (01) ==
LOC: HO.CT 06:49
PROVIDERS: PCP Internal Medicine; Visit Provider Internal Medicine
DX: R41.3 Other amnesia (principal)
CPT/HCPCS: 70450

== ENCOUNTER → 2025-02-21 06:51 | Outpatient (BNV) | payer OTHER, SELFPAY | PROVIDERS: PCP Internal Medicine; Visit Provider Radiology Diagnostic Radiology | DX: R41.3 Other amnesia (principal) | CPT/HCPCS: 70450 ==

== ENCOUNTER 2025-02-24 09:02 | Outpatient (AMB) | payer OTHER, SELFPAY ==
--- NOTE | 2025-02-24 09:02 | MHC.OFFVIS ---
Intake Visit Reasons: 6m/ PSA Intake Note: Patient is present for 6M/PSA Urology Medication:TERAZOSIN Antibiotic Allergy:PENICILLINS Blood Thinner:ASPIRIN [employer] Required: No Allergies Seasonal Allergies Allergy (Verified 02/24/25 09:02) Unknown Penicillins Adverse Reaction (Unknown, Verified 02/24/25 09:02) unknown HPI Comments Details: Henrique is a pleasant male. He is a patient Dr. Fang. 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 [place] Disappointed regarding electron result Lower urinary tract symptoms Current medications include terazosin 5 mg Seen August 2022 for urinary retention 800 cc and Nevarez catheter placement, imaging showed enlarged prostate PSA 11/25 2.1, 06/30 14, 06/30 3.6 Prostatitis 06/30 with significant PSA elevation Responded to 2 weeks Levaquin [facility] Medical History (Updated 02/07/25 @ 15:28 by Hank Olivsa MD) Memory loss Urinary retention BPH (benign prostatic hyperplasia) Elevated cholesterol Diverticulosis HTN (hypertension) Thrush, oral Asthma KARLI on CPAP Obesity (BMI 30-39.9) Surgical History History of colonoscopy with polypectomy (12/23/22) H/O colonoscopy Family History (Updated 02/07/25 @ 14:25 by MARIA ELENA Chin) Father Stroke Mother Smoker COPD (chronic obstructive pulmonary disease) Social History (Updated 02/07/25 @ 14:25 by MARIA ELENA Chin) Housing: House Alcohol intake: current Alcohol intake frequency: holidays/special occasions only Patient Tobacco Use Status: Never used Tobacco service: No Current occupational status: employed Cognitive needs: No Hearing needs: No Vision needs: Yes (rx glasses) Review of Systems Const Denies chills and Denies fever(s) Card Reports no additional complaints and Denies syncope Resp Denies cough GI Denies abdominal pain and Denies heartburn Reports as per HPI and Denies change in libido Neuro Denies syncope Psych Denies change in libido Endo Denies change in libido Physical Exam Const General: cooperative, healthy appearing, comfortable and no acute distress Orientation/consciousness: patient oriented x3 HEENT Face and sinus: Yes normal facial exam Mouth: moist mucous membranes Neck Neck: Yes normal visual inspection, Yes full ROM and Yes trachea midline Chest Chest palpation & inspection: normal inspection of the chest Resp Effort & Inspection: normal respiratory effort, able to speak in complete sentences and no respiratory distress GI Inspection: Yes normal to inspection Back/Spine/Pelvis Cervical Spine: normal cervical lordosis Thoracic/Lumbar Spine: thoracic and lumbar spine normal to inspection Skin General skin exam: no rashes or lesions noted Neuro General: patient oriented x3, gait normal, tone normal and moves all extremities Extrem General: Yes normal to inspection and Yes capillary refill normal Telehealth Telehealth Telehealth Platform: [employer]el[employer] Location of provider rendering services: practice address Location of patient: address on file Patient Identification confirmed using: Name, : Yes Telehealth method: video Patient verbally consented to treatment: Yes Patient verbally consented to billing insurance company: Yes Patient informed of any privacy concerns related to visit: Yes Minutes spent on Phone/Video with Pt.: 15 Assessment & Plan Assessment & Plan (1) Urinary retention with incomplete bladder emptying: Code(s): R33.9 - Retention of urine, unspecified Category: Medical (2) Prostatitis: Code(s): N41.9 - Inflammatory disease of prostate, unspecified Category: Medical Plan Six-month follow-up PSA Orders: Orders PSA,Total (Free>4and<10) 6 Months R33.9 - Retention of urine, unspecified US bladder 6 Months R33.9 - Retention of urine, unspecified, R39.12 - Poor urinary stream Patient Instructions: This note is constructed using voice recognition software. While every effort has been made to ensure accuracy directory compiler errors may have been included. Imaging studies, laboratory and physical exam results were discussed and reviewed in detail. No major barriers to patient understanding were identified. An opportunity to ask questions regarding the treatment plan was provided. All questions were answered. The patient expressed understanding and agreement with the above treatment plan. The patient is aware they should contact our office by phone for worsening of their current condition or the appearance of new urologic symptoms. Compliance is encouraged with any medications and followup testing that is ordered. It is a privilege to participate in the urologic care of your patient. If you have any questions or concerns regarding treatment for the above conditions, or other urologic issues, please do not hesitate to contact me. The office telephone contact is [phone]. Sincerely, Dr Christopher Thayer MD, [facility] - Urology Compassionate Specialist Care for the Genitourinary System Coding Level of Care Code Tele Est Pt Level 3 (20727) Complex EM visit Add On G2211 Diagnoses Urinary retention with incomplete bladder emptying R33.9 Prostatitis N41.9
--- OUTSIDE RECORDS SUMMARY | 2025-02-24 09:11 | XMS_ITS | Clinical Summary ---
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
== END 2025-02-24 13:07 | disposition home or self-care (01) ==
LOC: HO.HUSH 09:02
PROVIDERS: PCP Internal Medicine; Visit Provider Urology
DX: R33.9 Retention of urine, unspecified (principal); N41.9 Inflammatory disease of prostate, unspecified
CPT/HCPCS: 99213

== ENCOUNTER → 2025-02-24 09:02 | Outpatient (BNVA) | payer OTHER, SELFPAY | PROVIDERS: PCP Internal Medicine; Visit Provider Urology ==

== ENCOUNTER 2025-03-08 08:59 | Outpatient (AMB) | payer OTHER, SELFPAY ==
--- NOTE | 2025-03-08 09:07 | A.OFFVIS_ITS ---
Vital Signs 03/08/25 09:10 Height 5 ft 9 in Weight 199 lb BMI 29.4 BP 130/78 Blood Pressure Location Rt brachial Position Sitting Intake Visit Reasons: INP-Other Amnesia Intake Note: Patient referred inhouse Dr. Munoz for memory loss Accompanied by: Allergies Seasonal Allergies Allergy (Verified 03/08/25 09:11) Unknown Penicillins Adverse Reaction (Unknown, Verified 03/08/25 09:11) unknown Medication List - Last Reconciled 03/08/25 by Gloria Kent MD aspirin 81 mg PO DAILY fluticasone propion-salmeterol 250-50 mcg/dose (Wixela Inhub) 1 ea PO BID fluticasone propionate 50 mcg/actuation (Flonase Allergy Relief) 1 spray intranasal DAILY loratadine (Claritin) 10 mg PO DAILY terazosin 10 mg PO BEDTIME 90 days valsartan 160 mg PO DAILY HPI Comments Details: 64y/o Right handed male comes for evaluation of memory issues.He always had some problems with names and occasionally dates but for the past 6 mths he noticed that his memory is worse.He has trouble with short term recall, confused with dates, word finding difficulty etc.He forgets conversations . He is driving with no difficulties. 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 According to his his speeh ahs always been long winded but now it is worse. He has h/o sleep apnea was on CPAP but lost 100 lbs and stopped using CPAP. the HST from 2021 still has evidence of sleep apnea His feels he still has sleep apnea due to witnessed apneas, snoring and daytime fatigue. He played foot ball and Rugby and had multiple concussions. Mood- he is anxious now His older brother 70 years old has a diagnosis of dementia.He was alcoholic [facility] Medical History Memory loss Urinary retention BPH (benign prostatic hyperplasia) Elevated cholesterol Diverticulosis HTN (hypertension) Thrush, oral Asthma KARLI on CPAP Obesity (BMI 30-39.9) Surgical History History of colonoscopy with polypectomy (12/23/22) H/O colonoscopy Family History Father Stroke Mother Smoker COPD (chronic obstructive pulmonary disease) Social History Housing: House Alcohol intake: current Alcohol intake frequency: holidays/special occasions only Patient Tobacco Use Status: Never used Tobacco service: No Current occupational status: employed Cognitive needs: No Hearing needs: No Vision needs: Yes (rx glasses) Physical Exam Vital Signs: Last Vital Signs BP 130/78 03/08/25 09:10 BMI result Body Mass Index 29.4 Const General: cooperative, healthy appearing, comfortable and no acute distress Nutritional Appearance: average body habitus Orientation/consciousness: patient oriented x3 Eyes Pupils: Equal, round and reactive pupils present Neuro General: patient oriented x3, gait normal, tone normal, moves all extremities and no focal motor deficits Cranial nerves: Yes Facial sensation intact/muscles of mastication intact, Yes Equal, round and reactive pupils present, Yes Bilaterally intact EOM present, Yes Nystagmus not present, Yes Normal facial strength present, Yes Midline tongue present, Yes Symmetric palate elevation present and Yes Ability to bilaterally elevate shoulders present Gait exam (Neuro): Normal gait present Motor exam (neuro): 5/5 motor strength present throughout and Normal motor muscle tone present throughout Deep tendon reflexes (DTR's): Right triceps reflex intensity grade: 1+, Left triceps reflex intensity grade: 1+, Rt Biceps (C5, C6): 1+, Left biceps reflex intensity grade: 1+, Right brachioradialis reflex intensity grade: 1+, Left brachioradialis reflex intensity grade: 1+, Right patellar reflex intensity grade: 1+ and Left patellar reflex intensity grade: 1+ Coordination: oisxvt-uf-dgpu test normal Orientation What is the (year) (season) (date) (day) (month)?: year, season, date, day and month Where are we (state) (county) (town or city) (hospital) (floor)?: state, county, town or city, hospital/clinic and floor Registration Name of 3 unrelated objects clearly and slowly, then ask patient to repeat all 3 of them. (1st repeat determines score. Make sure they can repeat all three): object 1, object 2 and object 3 Attention & Calculation (CHOOSE ONE) Spell WORLD backwards (DLROW): 5 letters Recall Ask patient to repeat the 3 items from question #3.: object 1 and object 3 Language Show patient a wristwatch & ask what it is. Repeat for pencil.: watch and pencil Ask the patient to repeat the phrase 'No ifs, ands, or buts' after you.: correct Ask the patient to 'take a piece of paper with their right hand' 'fold paper in half' 'place paper on floor': take paper in right hand, fold paper in half and place paper on floor Print the sentence 'CLOSE YOUR EYES' on a piece. If patient actually closes eyes then score.: followed written direction Give patient a blank piece of paper & ask to write a sentence. Score if it contains a noun & verb.: sentence contains subject and verb Ask patient to copy figure of intersecting pentagons exactly. Score if all 10 angles & 2 intersects are included.: all 10 angles present & 2 are intersected Score Score: 29 Assessment & Plan Assessment & Plan (1) Cognitive impairment: Code(s): R41.89 - Other symptoms and signs involving cognitive functions and awareness Category: Medical (2) Word finding difficulty: Code(s): R47.89 - Other speech disturbances Category: Medical (3) Snoring: Code(s): R06.83 - Snoring Category: Medical Plan I will evaluate him with MRI brain, Amyloid PET Repeat Home sleep test for sleep apnea. Reviewed labs and CT scan Speech and cognitive therapy Suggested to start [facility] Brain wellness Orders: Orders RT home sleep study Today R06.81 - Apnea, not elsewhere classified, R06.83 - Snoring, R41.89 - Other symptoms and signs involving cognitive functions and awareness MR head/brain wo con Today R41.89 - Other symptoms and signs involving cognitive functions and awareness PET Brain beta amyloid Today R41.89 - Other symptoms and signs involving cognitive functions and awareness Referrals Speech and Hearing Referral R41.89 - Other symptoms and signs involving cognitive functions and awareness, R47.89 - Other speech disturbances Medications: New ltjhslbkpv-wbhfhri-T-mefolate 600-2-6 mg (Cerefolin Brain Wellness) 1 tab PO DAILY 90 tabs 6RF ndjrzkfpkp-unatahm-F-mefolate 600-2-6 mg (Cerefolin Brain Wellness) 1 tab PO DAILY 90 tabs 6RF Coding Level of Care Code New Pt Level 4 (57118) Diagnoses Cognitive impairment R41.89 Word finding difficulty R47.89 Snoring R06.83
--- OUTSIDE RECORDS SUMMARY | 2025-03-08 09:09 | XMS_ITS | Clinical Summary ---
Author Organization [facility] Address [address] [place] [address] Care Team Providers Care Supervisor Plasma Name Role Phone Unavailable Primary Care Provider [...] 2006 Imm-Zoster, Recombinant (1 of 2) 12/03/2011 [id number] ( season) 2024 021, 12/05/2020 Imm-Influenza (#1) 2024 07/17/2020, 1 10/30/2018, 09/08/2017 Alcohol and Drug Screen 09/07/2024 Depression Annual Screen 09/07/2024 Insurance [employer] [facility]
[2025-03-08 09:10] VITALS: BP 130/78; BMI 29.4
== END 2025-03-08 10:07 | disposition home or self-care (01) ==
LOC: HO.HSMS 09:00
PROVIDERS: PCP Internal Medicine; Visit Provider Psychiatry & Neurology Neurology
DX: R41.89 Other symptoms and signs involving cognitive functions and awareness (principal); R47.89 Other speech disturbances; R06.83 Snoring
CPT/HCPCS: 99204

== ENCOUNTER → 2025-03-23 07:39 | Outpatient (BNV) | payer OTHER, SELFPAY | PROVIDERS: PCP Internal Medicine; Visit Provider Radiology Diagnostic Radiology | DX: R41.89 Other symptoms and signs involving cognitive functions and awareness (principal) | CPT/HCPCS: 70551 ==

== ENCOUNTER 2025-03-23 07:46 | Outpatient (REF) | payer OTHER, SELFPAY ==
--- NOTE | ~2025-03-23 | MR_ITS ---
CLINICAL HISTORY: R41.89 - Other symptoms and signs involving cognitive functions and awar... MR brain without gadolinium Comparison: None provided Findings: No acute signal abnormalities noted on diffusion-weighted imaging. No acute intracranial fluid collection, hematoma or signal abnormality. Midline structures are intact and within normal limits. Normal flow voids are noted within the vascular structures. Sinuses and mastoids are clear. Impression: No significant abnormalities. This document has been electronically signed by: Watson Reaves MD on 03/23/2025 23:47:40
== END 2025-03-23 07:47 | disposition home or self-care (01) ==
LOC: HO.MRI 07:46
PROVIDERS: PCP Internal Medicine; Visit Provider Psychiatry & Neurology Neurology
DX: R41.89 Other symptoms and signs involving cognitive functions and awareness (principal)
CPT/HCPCS: 70551

== ENCOUNTER 2025-05-10 12:27 | Outpatient (RCR) | payer OTHER, SELFPAY ==
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
== END 2025-06-13 13:52 | disposition still patient (30) ==
LOC: HO.SH 12:27
PROVIDERS: PCP Internal Medicine; Visit Provider Psychiatry & Neurology Neurology
DX: R47.89 Other speech disturbances (principal); R41.89 Other symptoms and signs involving cognitive functions and awareness
CPT/HCPCS: 96125

== ENCOUNTER 2025-05-19 09:59 | Outpatient (AMB) | payer OTHER, SELFPAY ==
--- NOTE | 2025-05-19 10:08 | A.OFFVIS_ITS ---
Vital Signs 05/19/25 10:09 Height 5 ft 9 in Weight 194 lb 14.218 oz BMI 28.8 BP 118/56 L Blood Pressure Location Rt brachial Position Sitting Pulse 60 Pulse Source Monitor Intake Visit Reasons: 1 yr f/up dr matthews pt Clinical Recruiter Required: No Accompanied by: Self / Same As Patient Allergies Seasonal Allergies Allergy (Verified 05/19/25 10:12) Unknown Penicillins Adverse Reaction (Unknown, Verified 05/19/25 10:12) unknown Medication List - Last Reconciled 05/19/25 by DM BanerjeeC rcgvdekhbg-ftwxwiy-N-mefolate 600-2-6 mg ([employer]) 1 tab PO DAILY aspirin 81 mg PO DAILY fluticasone propion-salmeterol 250-50 mcg/dose (Wixela Inhub) 1 ea PO BID fluticasone propionate 50 mcg/actuation (Flonase Allergy Relief) 1 spray intranasal DAILY loratadine (Claritin) 10 mg PO DAILY simvastatin 40 mg PO BEDTIME terazosin 10 mg PO BEDTIME 90 days valsartan 160 mg PO DAILY HPI HPI 1 yr f/up dr matthews pt: Details: Henrique is a 64-year-old male with past medical history of hypertension, prior obesity, sleep apnea with prior CPAP use currently being re-evaluated who has been seen here for heart palpitations with finding of occasional PVCs on Holter monitor. He now presents for follow-up. His last visit was 05/19/2024. Today he reports that he no longer has any heart palpitations. He has no cardiac concerns. He denies chest discomfort, shortness of breath, lightheadedness, leg edema. His primary concern is of forgetfulness. He is currently on FMLA from work due to this symptom and he is undergoing evaluation. He has an upcoming sleep study to evaluate his sleep apnea. He is following with Dr. Mata. He walks routinely for exercise and has exercise equipment in his home which he uses routinely. [facility] Medical History Word finding difficulty Witnessed apneic spells Snoring Cognitive impairment Memory loss Urinary retention BPH (benign prostatic hyperplasia) Elevated cholesterol Diverticulosis HTN (hypertension) Thrush, oral Asthma KARLI on CPAP Obesity (BMI 30-39.9) Surgical History History of colonoscopy with polypectomy (12/23/22) H/O colonoscopy Family History Father Stroke Mother Smoker COPD (chronic obstructive pulmonary disease) Social History Housing: House Alcohol intake: current Alcohol intake frequency: holidays/special occasions only Patient Tobacco Use Status: Never used Tobacco service: No Current occupational status: employed Cognitive needs: No Hearing needs: No Vision needs: Yes (rx glasses) Review of Systems Const Details: word finding issues All systems reviewed & are unremarkable except as noted in HPI and below Denies daytime sleepiness, Denies difficulty sleeping, Denies snoring, Denies stops breathing during sleep and Denies weakness Card Denies chest pain, Denies rapid heart rate, Denies irregular heart rhythm, Denies claudication, Denies leg edema, Denies lightheadedness, Denies palpitations, Denies dyspnea, Denies dyspnea on exertion, Denies orthopnea, Denies paroxysmal nocturnal dyspnea and Denies slow heart rate Resp Denies cough, Denies dyspnea, Denies dyspnea on exertion and Denies snoring GI Reports no additional complaints, Denies hematochezia, Denies change in stool character and Denies dyspepsia Musc Denies abnormal gait, Denies muscle weakness and Denies numbness Neuro Denies abnormal gait, Denies numbness and Denies weakness Endo Denies palpitations Physical Exam Vital Signs: Last Vital Signs Pulse 60 05/19/25 10:09 BP 118/56 L 05/19/25 10:09 BMI result Body Mass Index 28.8 Const General: cooperative, healthy appearing, comfortable and no acute distress Orientation/consciousness: patient oriented x3 Neck Neck: Yes normal visual inspection Resp Effort & Inspection: normal respiratory effort Auscultation: clear to auscultation bilaterally, no crackles, no rales, no rhonchi and no wheezes Cardio Rate: regular rate Rhythm: regular rhythm Heart sounds: S1 normal heart sound present, S2 normal heart sound present, no gallops, no murmurs and no rubs Neuro General: patient oriented x3 Extrem General: Yes normal to inspection, No no pedal edema and No calf tenderness Psych Appearance: grossly normal Mental Status: mental status grossly normal Speech and movement: Normal speech and movement present Office Procedures EKG Details: Today, read by me, sinus rhythm, septal Q-wave, (could be related to lead placement) rate 60, QTC 388 milliseconds [id number], Complete Assessment & Plan Assessment & Plan (1) Heart palpitations: Code(s): R00.2 - Palpitations Category: Medical Plan: Prior reports of heart palpitations which have since fully resolved. His cardiac evaluation included EKG showing normal sinus rhythm and normal NE, QRS and QTC intervals. A Holter monitor done 05/02/2024 shows sinus rhythm with average heart rate 69 beats per minute, occasional PVCs with burden 1%, rare supraventricular ectopy. Echocardiogram done 05/02/2024 was normal study. His symptoms were likely related to extrasystoles. He no longer has any cardiac concerns. No further testing needed at this time. Cardiology follow-up will be PRN. (2) HTN (hypertension): Code(s): I10 - Essential (primary) hypertension Category: Medical Plan: Blood pressure goal less than 130/80. Well controlled at present. Followed by PCP. Continue valsartan. Plan I discussed with the patient the importance of continuing follow-up with his physicians to address the memory loss. We reviewed the potential need for CPAP therapy pending further sleep study results. The patient was informed that no routine cardiac follow-up is necessary unless new symptoms arise. Patient Instructions: - Follow up with your physicians to address memory loss. - Await further sleep study results to determine CPAP need. - No routine cardiac follow-up needed unless new symptoms occur. Patient was informed and verbally consented to the use of an ambient scribe for clinic note documentation during this visit. Visit time spent on chart review, interview, assessment, orders, documentation. Coding Level of Care Code Est Pt Level 3 (20588) Complex EM visit Add On G2211 Diagnoses Heart palpitations R00.2 HTN (hypertension) I10 CPT Codes EKG - CPT: 53784-[id number], Complete ([id number]) Time Spent (min) 24
[2025-05-19 10:09] VITALS: BP 118/56; PULSE 60; BMI 28.8
--- OUTSIDE RECORDS SUMMARY | 2025-05-19 11:17 | XMS_ITS | Clinical Summary ---
Author Organization [facility] Address [address] [place] [address] Care Team Providers Care Teacher Education Instructor Name Role Phone Unavailable Primary Care Provider [...] 2006 Fecal DNA 2006 Flexible Sigmoidoscopy 2006 Imm-Pneumococcal 50+ (1 of 1 - PCV) 12/03/2011 Imm-Zoster, Recombinant (1 of 2) 12/03/2011 Alcohol and Drug Screen 09/07/2024 Depression Annual Screen 09/07/2024 [id number] (3 - 2024- season) 05/08/202501/01/ 021, 12/05/2020 Imm-Influenza (#1) 2025 07/17/2020, 1 10/30/2018, 09/08/2017 Insurance [email or web address] ([employer])
== END 2025-05-19 10:56 | disposition home or self-care (01) ==
LOC: HO.HCS 10:00
PROVIDERS: PCP Internal Medicine; Visit Provider Nurse Practitioner Family
DX: R00.2 Palpitations (principal); I10 Essential (primary) hypertension
CPT/HCPCS: 93010; 99213

== ENCOUNTER → 2025-05-19 09:59 | Outpatient (BNVA) | payer OTHER, SELFPAY | PROVIDERS: PCP Internal Medicine; Visit Provider Nurse Practitioner Family | DX: R00.2 Palpitations (principal) | CPT/HCPCS: 93005 ==

== ENCOUNTER → 2025-05-24 11:02 | Outpatient (REF) | payer OTHER, SELFPAY ==
--- OUTSIDE RECORDS SUMMARY | 2025-05-24 14:11 | XMS_ITS | Clinical Summary ---
Author Organization [facility] Address [address] [place] [address] Care Team Providers Care Spanisher Name Role Phone Unavailable Primary Care Provider [...] Drug Screen 09/07/2024 Depression Annual Screen 09/07/2024 [id number] (3 - 2024- season) 05/08/202501/01/ 021, 12/05/2020 Imm-Influenza (#1) 2025 07/17/2020, 1 10/30/2018, 09/08/2017 Insurance [employer] ([place])
== END ==
LOC: HO.SL 11:02
PROVIDERS: PCP Internal Medicine; Visit Provider Psychiatry & Neurology Neurology
DX: R41.89 Other symptoms and signs involving cognitive functions and awareness (principal); R06.83 Snoring; R06.81 Apnea, not elsewhere classified; R40.0 Somnolence
CPT/HCPCS: 95806

== ENCOUNTER → 2025-05-24 11:10 | Outpatient (BNV) | payer OTHER, SELFPAY | PROVIDERS: PCP Internal Medicine; Visit Provider Psychiatry & Neurology Neurology | DX: R06.83 Snoring (principal) | CPT/HCPCS: 95806 ==

== ENCOUNTER 2025-07-13 07:28 | Outpatient (AMB) | payer OTHER, SELFPAY ==
[2025-07-13 07:26] VITALS: BP 132/68; PULSE 78; O2SAT 99; BMI 29.1
--- NOTE | 2025-07-13 07:26 | MHC.OFFVIS ---
Vital Signs 07/13/25 07:26 Height 5 ft 9 in Weight 197 lb BMI 29.1 BP 132/68 Blood Pressure Location Rt brachial Position Sitting Pulse 78 Pulse Source Pulse Oximeter Pulse Oximetry (%) 99 Oxygen Delivery Method Room Air Intake Visit Reasons: 4 mo follow up Intake Note: Follow up Cognitive impairment, snoring and Word finding difficulty Dress Cutter Required: No Accompanied by: Spouse Allergies Seasonal Allergies Allergy (Verified 07/13/25 07:26) Unknown Penicillins Adverse Reaction (Unknown, Verified 07/13/25 07:26) unknown Medication List - Last Reconciled 07/13/25 by Gloria Kent MD [id number] 600-2-6 mg ([employer] Magpie Brain Optovue) 1 tab PO DAILY aspirin 81 mg PO DAILY fluticasone propion-salmeterol 250-50 mcg/dose (Wixela Inhub) 1 ea PO BID fluticasone propionate 50 mcg/actuation (Flonase Allergy Relief) 1 spray intranasal DAILY loratadine (Claritin) 10 mg PO DAILY simvastatin 40 mg PO BEDTIME terazosin 10 mg PO BEDTIME 90 days valsartan 160 mg PO DAILY HPI Comments Details: 64y/o Right handed male comes for follow up of memory issues. His MRI brain was nonfocal . INSURANCE DID NOT APPROVE AMYLOID PET - He will be a good candidate for anti amyloid therapy TSH and B 12 were normal . 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 He was placed on administrative leave February 2025 and now he is on FMLA . Home sleep test was normal History from initial visit-He always had some problems with names and occasionally dates but for the past 6 mths he noticed that his memory is worse.He has trouble with short term recall, confused with dates, word finding difficulty etc.He forgets conversations . He is driving with no difficulties. 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 According to his his speech has always been long winded but now it is worse. He has h/o sleep apnea was on CPAP but lost 100 lbs and stopped using CPAP. the HST from 2021 still has evidence of sleep apnea His feels he still has sleep apnea due to witnessed apneas, snoring and daytime fatigue. He played foot ball and Rugby and had multiple concussions. Mood- he is anxious now His older brother 70 years old has a diagnosis of dementia.He was alcoholic [facility] Medical History Word finding difficulty Witnessed apneic spells Snoring Cognitive impairment Memory loss Urinary retention BPH (benign prostatic hyperplasia) Elevated cholesterol Diverticulosis HTN (hypertension) Thrush, oral Asthma KARLI on CPAP Obesity (BMI 30-39.9) Surgical History History of colonoscopy with polypectomy (12/23/22) H/O colonoscopy Family History Father Stroke Mother Smoker COPD (chronic obstructive pulmonary disease) Social History Housing: House Alcohol intake: current Alcohol intake frequency: holidays/special occasions only Patient Tobacco Use Status: Never used Tobacco service: No Current occupational status: employed Cognitive needs: No Hearing needs: No Vision needs: Yes (rx glasses) Physical Exam Vital Signs: Last Vital Signs Pulse 78 07/13/25 07:26 BP 132/68 07/13/25 07:26 Pulse Ox 99 07/13/25 07:26 Oxygen Delivery Method Room Air 07/13/25 07:26 BMI result Body Mass Index 29.1 Const General: cooperative, healthy appearing, comfortable and no acute distress Nutritional Appearance: average body habitus Orientation/consciousness: patient oriented x3 Eyes Pupils: Equal, round and reactive pupils present Neuro General: patient oriented x3, gait normal, tone normal, moves all extremities and no focal motor deficits Cranial nerves: Yes Facial sensation intact/muscles of mastication intact, Yes Equal, round and reactive pupils present, Yes Bilaterally intact EOM present, Yes Nystagmus not present, Yes Normal facial strength present, Yes Midline tongue present, Yes Symmetric palate elevation present and Yes Ability to bilaterally elevate shoulders present Gait exam (Neuro): Normal gait present Motor exam (neuro): 5/5 motor strength present throughout and Normal motor muscle tone present throughout Coordination: [id number] test normal Assessment & Plan Assessment & Plan (1) Cognitive impairment: Code(s): R41.89 - Other symptoms and signs involving cognitive functions and awareness Category: Medical (2) Word finding difficulty: Code(s): R47.89 - Other speech disturbances Category: Medical Plan TALK TO INSURANCE ABOUT PET AMYLOID SCAN LP - for Amyloid 42 P tau and t tau Reviewed labs APOE 4 testing Orders: Orders Other Ref Test - Misc Today R41.89 - Other symptoms and signs involving cognitive functions and awareness, R47.89 - Other speech disturbances FL guided lumbar puncture LP Today R41.89 - Other symptoms and signs involving cognitive functions and awareness Coding Level of Care Code Est Pt Level 4 (17067) Complex EM visit Add On G2211 Diagnoses Cognitive impairment R41.89 Word finding difficulty R47.89
--- OUTSIDE RECORDS SUMMARY | 2025-07-13 07:30 | XMS_ITS | Clinical Summary ---
Author Organization [facility] Address [address] [facility] [address] [place] [address] Phone Care Team Providers Care Mechanical Manager Name Role Phone Pcp, Unknown Primary Care Provider Unavailabl e Encounters Date Type Department Care Team Description 06/30/2025 Transcribe Orders [facility] - Virtual Department [address] [place] [address] Jess Guadarrama from Last 3 Months Social History Tobacco Use Types Packs/Day Years Used Date Smoking Tobacco: Never Assessed Education Answer Date Recorded Are you interested in more education? Not on sammy e 06/30/2025 Are you concerned about learning? Not on file 06/30/2025 No 06/30/2025 No 06/30/2025 Digital Access Answer Date Recorded No 06/30/2025 No 06/30/2025 Reliable internet access at home? Not on file 06/30/2025 Device with a working camera? Not on file Sex and Gender Information Value Date Recorded Sex Assigned at Not on file Legal Sex Male 12:32 PM EDT Gender Identity Not on file Sexual Orientation Not on file Plan of Treatment Upcoming Encounters Date Type Department Care Team (Late st Contact Info) Description 01/03/2026 3:00 PM EDT Office Visit [facility] Department of Neurology [address] [place] [address] Dena Kim PAMyeshaC [address] [place] [address] [email or web address] Health Maintenance Due Date Last Done Comments Adult Td,Tdap Booster 1961 LIPID PANEL 1961 DEPRESSION SCREENING 1973 SMOKING Hx and SMOKELESS TOB ACCO SCREENING 1974 HEPATITIS C SCREENING 12/03/1979 HIV ONE-TIME SCREENING (18-6 5 YEARS) 12/03/1979 COLOGUARD 2006 COLONOSCOPY 2006 COLORECTAL CANCER SCREENING 2006 FIT TEST 2006 FOBT 2006 SIGMOIDOSCOPY 2006 VIRTUAL COLONOSCOPY 2006 PNEUMOCOCCAL VACCINES (50+ y ears) (1 of 1 - PCV) 12/03/2011 ZOSTER VACCINES (1 of 2) 12/03/2011 INFLUENZA VACCINE (#1) 2025 COVID-19 VACCINE (1 - 2024-2 6 season) 2025 RSV VACCINE (1 - 1-dose 75+ series) 2036 HEPATITIS A VACCINES Aged Out No long er eligible based on patient's age to complete this topic HIB VACCINES Aged Out No longer eligi ble based on patient's age to complete this topic MENINGOCOCCAL VACCINES (ACWY) Aged Out No longer eligible based on patient's age to complete this topic MENINGOCOCCAL VACCINES (B) Aged Out N o longer eligible based on patient's age to complete this topic Medical Devices Not on file Insurance [employer] TOTAL CHOICE INDEMNITY [employer] TOTAL CHOICE INDEMNITY [facility] TOTAL CHOICE INDEMNITY [facility] TOTAL CHOICE INDEMNITY [facility] TOTAL CHOICE INDEMNITY [facility] TOTAL CHOICE INDEMNITY Care Teams Mechanical Manager Relationship Specialty Start Date End Date Pcp, Unknown PCP - General 06/30/25 Additional Source Comments The information contained in this document represents components of the legal health record. It is not the complete legal health record.[facility]
--- OUTSIDE RECORDS SUMMARY | 2025-07-13 07:30 | XMS_ITS | Clinical Summary ---
Author Organization [facility] Address [address] [place] [address] Care Team Providers Care Precinct Commanding Officer Name Role Phone Unavailable Primary Care Provider [...] Drug Screen 09/07/2024 Depression Annual Screen 09/07/2024 [id number] (3 - 2024- season) 05/08/202501/01/ 021, 12/05/2020 Imm-Influenza (#1) 2025 07/17/2020, 1 10/30/2018, 09/08/2017 Insurance [employer] (Spare to Share)
--- OUTSIDE RECORDS SUMMARY | 2025-07-13 07:31 | XMS_ITS | Encounter Summary ---
Author Organization [facility] Address [address] [place] [address] Phone Care Team Providers Care Welfare Aide Name Role Phone Pcp, Unknown Primary Care Provider Unavailabl e Reason for Referral * Consultation (Routine) - New Request Specialty Diagnoses / Procedures Referred By Contac t Referred To Contact Neurology Self-Referred, Patient Referral ID Status Reason Start Date Expiration Date V isits Requested Visits Authorized [id number] New Request 06/30/2025 06/30/2026 1 1 Encounter Details Date Type Department Care Team (Late st Contact Info) Description 06/30/2025 Transcribe Orders [facility] - [facility] [place] [address] [place] [id number] Jess [email or web address] Social History Tobacco Use Types Packs/Day Years [...] on file Sexual Orientation Not on file documented as of this encounter Plan of Treatment Upcoming Encounters Date Type Department Care Team (Late st Contact Info) Description 01/03/2026 3:00 PM EDT Office Visit [facility] Department of Neurology [address] [place] [address] Dena Kim PA-C [address] [place] [address] [email or web address] Scheduled Referrals Name Type Priority Associated Diagnoses Order Schedule Ambulatory referral to [facility] [place] - Employed Practices Outpatient Referral Routine Ordered: 06/30/2025 documented as of this encounter Visit Diagnoses Not on filedocumented in this encounter Care Teams Welfare Aide Relationship Specialty Start Date End Date Pcp, Unknown PCP - General 06/30/25 documented as of this encounter Additional Source Comments The information contained in this document represents components of the legal health record. It is not the complete legal health record.[facility]
== END 2025-07-13 08:32 | disposition home or self-care (01) ==
LOC: HO.HSMS 07:28
PROVIDERS: PCP Internal Medicine; Visit Provider Psychiatry & Neurology Neurology
DX: R41.89 Other symptoms and signs involving cognitive functions and awareness (principal); R47.89 Other speech disturbances
CPT/HCPCS: 99214

== ENCOUNTER 2025-07-18 08:54 | Outpatient (REF) | payer OTHER, SELFPAY ==
--- OUTSIDE RECORDS SUMMARY | 2025-07-18 09:20 | XMS_ITS | Encounter Summary ---
Author Organization [facility] Address [address] [place] [address] Phone Care Team Providers Care Metal Neutralizer Name Role Phone Pcp, Unknown Primary Care Provider Unavailabl e Reason for Referral * Consultation (Routine) - New Request Specialty Diagnoses / Procedures Referred By Contac t Referred To Contact Neurology Self-Referred, Patient Referral ID Status Reason Start Date Expiration Date V isits Requested Visits Authorized [id number] New Request 06/30/2025 06/30/2026 1 1 Encounter Details Date Type Department Care Team (Late st Contact Info) Description 06/30/2025 Transcribe Orders [facility] - [place] Department [address] [place] [phone] Jess [email or web address] Social History Tobacco Use Types Packs/Day Years [...] Description 01/03/2026 3:00 PM EDT Office Visit [facility] Department of Neurology [address] [place] [address] Dena Kim PA-C [address] [place] [address] [email or web address] Scheduled Referrals Name Type Priority Associated Diagnoses Order Schedule Ambulatory referral to [facility] Neurology - Employed Practices Outpatient Referral Routine Ordered: 06/30/2025 documented as of this encounter Visit Diagnoses Not on filedocumented in this encounter Care Teams Metal Neutralizer Relationship Specialty Start Date End Date Pcp, Unknown PCP - General 06/30/25 documented as of this encounter Additional Source Comments The information contained in this document represents components of the legal health record. It is not the complete legal health record.[facility]
--- OUTSIDE RECORDS SUMMARY | 2025-07-18 09:20 | XMS_ITS | Clinical Summary ---
Author Organization [facility] Address [address] [facility] [address] [place] [phone] Phone Care Team Providers Care Cobol Engineer Name Role Phone Pcp, Unknown Primary Care Provider Unavailabl e Encounters Date Type Department Care Team Description 06/30/2025 Transcribe Orders [facility] - Virtual Department [address] [place] [address] Jess Guadarrama from Last 3 Months Social [...] Description 01/03/2026 3:00 PM EDT Office Visit [facility] Department of Neurology [address] [place] [address] Dena Kim PAMyeshaC [address] [place] [address] [email or web address] Health Maintenance Due Date Last Done [...] topic Medical Devices Not on file Insurance [employer] TOTAL CHOICE INDEMNITY [employer] TOTAL CHOICE INDEMNITY [facility] TOTAL CHOICE INDEMNITY [facility] TOTAL CHOICE INDEMNITY [facility] TOTAL CHOICE INDEMNITY [facility] TOTAL CHOICE INDEMNITY Care Teams Cobol Engineer Relationship Specialty Start Date End Date Pcp, Unknown PCP - General 06/30/25 Additional Source Comments The information contained in this document represents components of the legal health record. It is not the complete legal health record.[facility]
--- OUTSIDE RECORDS SUMMARY | 2025-07-18 09:20 | XMS_ITS | Clinical Summary ---
Author Organization [facility] Address [address] [place] [address] Care Team Providers Care Medical Assisting Instructor Name Role Phone Unavailable Primary Care [...] Drug Screen 09/07/2024 Depression Annual Screen 09/07/2024 [id number] (3 - 2024- season) 05/08/202501/01/ 021, 12/05/2020 Imm-Influenza (#1) 2025 07/17/2020, 1 10/30/2018, 09/08/2017 Insurance [employer] ([employer])
[2025-07-24 18:48] LABS: Apolipoprotein E Genotype E4/E4
== END 2025-07-18 08:55 | disposition home or self-care (01) ==
LOC: HO.LAB 08:54
PROVIDERS: PCP Internal Medicine; Visit Provider Psychiatry & Neurology Neurology
DX: R41.89 Other symptoms and signs involving cognitive functions and awareness (principal); R47.89 Other speech disturbances
CPT/HCPCS: 36415; 82542

== ENCOUNTER 2025-08-15 11:32 | Outpatient (AMB) | payer OTHER, SELFPAY ==
[2025-08-15 11:34] VITALS: BP 117/55; PULSE 92; RESP 16; TEMP 36.4; O2SAT 99; BMI 30.4
--- NOTE | 2025-08-15 11:34 | MHC.PC.OV ---
Vital Signs 08/15/25 11:34 Height 5 ft 8 in Weight 200 lb BMI 30.4 BP 117/55 L Blood Pressure Location Rt brachial Position Sitting Respiration 16 Pulse 92 Pulse Source Pulse Oximeter Temp 97.6 F Temp Source Temporal Artery Scan Pulse Oximetry (%) 99 Oxygen Delivery Method Room Air Intake Visit Reasons: Follow up Milling Machine Operator Gear Required: No Accompanied by: Spouse Allergies Seasonal Allergies Allergy (Verified 08/15/25 11:34) Unknown Penicillins Adverse Reaction (Unknown, Verified 08/15/25 11:34) unknown Tobacco use date assessed: 02/07/25 Dental Screening Dental Screen Date: 02/07/25 [facility] Medical History Word finding difficulty Witnessed apneic spells Snoring Cognitive impairment Memory loss Urinary retention BPH (benign prostatic hyperplasia) Elevated cholesterol Diverticulosis HTN (hypertension) Thrush, oral Asthma KARLI on CPAP Obesity (BMI 30-39.9) Surgical History History of colonoscopy with polypectomy (12/23/22) H/O colonoscopy Family History Father Stroke Mother Smoker COPD (chronic obstructive pulmonary disease) Social History Housing: House Alcohol intake: current Alcohol intake frequency: holidays/special occasions only Patient Tobacco Use Status: Never used Tobacco service: No Current occupational status: employed Cognitive needs: No Hearing needs: No Vision needs: Yes (rx glasses) Questionnaire PHQ-9 Over the last 2 weeks, how often have you been bothered by any of the following problems? 1. Little interest or pleasure in doing things: not at all 2. Feeling down, depressed, or hopeless: not at all 3. Trouble falling or staying asleep, or sleeping too much: not at all 4. Feeling tired or having little energy: not at all 5. Poor appetite or overeating: not at all 6. Feeling bad about yourself - or that you are a failure or have let yourself or your family down: not at all 7. Trouble concentrating on things, such as reading the newspaper or watching television: not at all 8. Moving or speaking so slowly that other people could have noticed. Or the opposite - being so fidgety or restless that you have been moving around a lot more than usual: not at all 9. Thoughts that you would be better off or of hurting yourself in some way: not at all Total score: 0 Source: Developed by Drs. aQmar Evans, Joanne Curry, George Chambers and colleagues, with an educational fidel from [employer]. Thrive Questionnaire Date Thrive assessed: 02/07/25 I am a: Patient What is your living situation today?: I have a steady place to live Within the past 12 months, did the food you bought not last and you didn't have the money to get more?: Never true Within the past 12 months, did you worry whether your food would run out before you got money to buy more?: Never true Do you have trouble paying for medicines?: No Do you have trouble getting transportation to medical appointments?: No Do you have trouble paying your heating and electricity bill?: No Do you have trouble taking care of your child, family member or friend?: No Do you have trouble with day-to-day activities such as bathing, preparing meals, shopping, managing finances, etc.?: No Are you currently unemployed and looking for a job?: No Are you interested in more education?: No Please select the resources that you would like help with: None THRIVE Score: 0 AUDIT C Alcohol Use Questionnaire (AUDIT-C) 1. How often do you have a drink containing alcohol?: Monthly or less 2. How many drinks containing alcohol do you have on a typical day when you are drinking?: 1 or 2 3. How often do you have six or more drinks on one occasion?: Never Total Score: 1 IRENE-7 AMB Questionnaire IRENE-7 Date IRENE - 7 assessed: 02/07/25 Feeling nervous, anxious, or on edge: 0 = Not at all Not being able to stop or control worryin = Not at all Worrying too much about different things: 0 = Not at all Trouble relaxin = Not at all Being so restless that it is hard to sit still: 0 = Not at all Becoming easily annoyed or irritable: 0 = Not at all Feeling afraid as if something awful might happen: 0 = Not at all Total IRENE-7 score (0-4 normal; 5-9 mild; 10-14 moderate; 15-21 severe): 0 Source: Developed by Drs. Qamar Evans, Joanne Curry, George Chambers and colleagues, with an educational fidel from [employer]. Physical exam (Primary Care) Tobacco/Smoking Status: Tobacco use Status Tobacco use date assessed 02/07/25 08/15/25 11:35 Patient Tobacco Use Status Never used Tobacco 08/15/25 11:35 PHQ-9: PHQ-9 Score PHQ-9: Total score 0 08/15/25 11:35 Thrive Assessment: Date of Thrive Assessment Date Thrive assessed 02/07/25 08/15/25 11:35 Office Procedures Flu Questionnaire Does the patient have a severe egg allergy?: No Does the patient have severe life threatening allergies?: No Does the patient have a fever or illness today?: No Has the patient ever had Guillain-[place] Syndrome?: No Has the patient ever had any past reaction to a flu shot?: No Immunizations Fluarix [id number] (PF) 45 mcg (15 mcg x 3)/0.5 mL IM syringe Performing Provider: Hank Olivas MD [facility] Documented (not given) by: MARIA ELENA Chin on 08/15/25 11:43 Reason Not Given: Received Previously Coding Assessment & Plan Assessment & Plan Orders: Orders Influenza [id number] Immunization Today Z23 - Encounter for immunization
== END 2025-08-15 12:31 | disposition home or self-care (01) ==
LOC: HO.HMCSH 11:32
PROVIDERS: PCP Internal Medicine; Visit Provider Internal Medicine
DX: Z23 Encounter for immunization (principal)

== ENCOUNTER → 2025-08-15 11:32 | Outpatient (BNVA) | payer OTHER, SELFPAY | PROVIDERS: PCP Internal Medicine; Visit Provider Internal Medicine | DX: I10 Essential (primary) hypertension (principal); R41.89 Other symptoms and signs involving cognitive functions and awareness; Z28.89 Immunization not carried out for other reason | CPT/HCPCS: 90471; 96127 ==

== ENCOUNTER → 2025-08-17 08:18 | Outpatient (BNVA) | payer OTHER, SELFPAY | PROVIDERS: PCP Internal Medicine; Visit Provider Urology | DX: R33.9 Retention of urine, unspecified (principal) | CPT/HCPCS: 51702; 51798 ==

== ENCOUNTER 2025-08-18 09:05 | Day surgery (SDC) | payer OTHER, SELFPAY ==
--- OUTSIDE RECORDS SUMMARY | 2025-07-20 15:22 | XMS_ITS | Encounter Summary ---
Author Organization [facility] Address [address] [place] [address] Phone Care Team Providers Care [employer] Name Role Phone Pcp, Unknown Primary Care Provider Unavailabl e Reason for Referral * Consultation (Routine) - New Request Specialty Diagnoses / Procedures Referred By Contac t Referred To Contact Neurology Self-Referred, Patient Referral ID Status Reason Start Date Expiration Date V isits Requested Visits Authorized [id number] New Request 06/30/2025 06/30/2026 1 1 Encounter Details Date Type Department Care Team (Late st Contact Info) Description 06/30/2025 Transcribe Orders [facility] - Virtual Department [address] [place] [phone] Jess [email or web address] Social History Tobacco Use Types Packs/Day Years [...] EDT Office Visit [facility] Department of Neurology [address] [place] [address] Dena Kim PA-C [address] [place] [address] [email or web address] Scheduled Referrals Name Type Priority Associated Diagnoses Order Schedule Ambulatory referral to [facility] Neurology - Employed Practices Outpatient Referral Routine Ordered: 06/30/2025 documented as of this encounter Visit Diagnoses Not on filedocumented in this encounter Care Teams [employer] Relationship Specialty Start Date End Date Pcp, Unknown PCP - General 06/30/25 documented as of this encounter Additional Source Comments The information contained in this document represents components of the legal health record. It is not the complete legal health record.[facility]
--- OUTSIDE RECORDS SUMMARY | 2025-07-20 15:22 | XMS_ITS | Clinical Summary ---
Author Organization [facility] Address [address] [facility] [address] [place] [address] Phone Care Team Providers Care Manager Group Name Role Phone Pcp, Unknown Primary Care Provider Unavailabl e Encounters Date Type Department Care Team Description 06/30/2025 Transcribe Orders [facility] - Virtual Department [address] [place] [address] Jess Guadarrama from Last 3 Months Social [...] Description 01/03/2026 3:00 PM EDT Office Visit [facility] Department of Neurology [address] [place] [address] Dena Kim PAMyeshaC [address] [place] [address] [email or web address] Health Maintenance Due Date Last Done Comments [...] topic Medical Devices Not on file Insurance [employer] TOTAL CHOICE INDEMNITY [employer] TOTAL CHOICE IN[facility]MNITY [facility] TOTAL CHOICE IN[facility]MN[facility] TOTAL CHOICE IN[facility]MNITY [facility] TOTAL CHOICE INDEMNITY [facility] TOTAL CHOICE INDEMNITY Care Teams Manager Group Relationship Specialty Start Date End Date Pcp, Unknown PCP - General 06/30/25 Additional Source Comments The information contained in this document represents components of the legal health record. It is not the complete legal health record.[facility]
--- OUTSIDE RECORDS SUMMARY | 2025-07-20 15:22 | XMS_ITS | Clinical Summary ---
Author Organization [facility] Address [address] [place] [address] Care Team Providers Care E Commerce Specialist Name Role Phone Unavailable Primary Care Provider [...] Drug Screen 09/07/2024 Depression Annual Screen 09/07/2024 [id number] (3 - 2024- season) 05/08/202501/01/ 021, 12/05/2020 Imm-Influenza (#1) 2025 07/17/2020, 1 10/30/2018, 09/08/2017 Insurance [employer] ([employer])
[2025-08-18] VITALS (9 sets, daily range): BP systolic 104–126; BP diastolic 54–69; PULSE 60–83; RESP 16–18; TEMP 36.6–36.9; O2SAT 97–99; BMI 28.1
--- NOTE | ~2025-08-18 | FL_ITS ---
EXAMINATION: XR LUMBAR PUNCTURE CLINICAL INFORMATION: COGNITIVE IMPAIRMENT,DEMENTIAL POSSIBLE ALZHEMIMERS COMPARISON: None available. TECHNIQUE: Procedure and risks and benefits including bleeding, infection and headache were discussed with the patient and informed consent was obtained. The patient was positioned in the prone position. The back was prepped and draped in the usual sterile fashion. The skin and soft tissues were anesthetized with 1% lidocaine plain. Using fluoroscopic guidance and a 22-gauge spinal needle, access to the CSF fluid in the spinal canal was obtained at the L3-4 right interlaminar level. FINDINGS: Opening pressure was not elevated. Opening pressure estimated at 12 cm of water. 7.5 mL of clear CSF fluid was removed. Closing pressure was not obtained. FLUOROSCOPY TIME: 50 seconds DOSE AREA PRODUCT: 1126 uGy-m2 (microgray-meter squared) FL/FL guided lumbar puncture LP IMPRESSION: Fluoroscopy-guided lumbar puncture. Electronically signed by: Allison Peterson MD 08/18/2025 12:27 PM [facility]
[2025-08-18 09:39] LABS: MANUAL DIFF FLAG NO
[2025-08-18 09:41] LABS: Hematocrit 38.5 % (42.0-52.0); Hemoglobin 12.7 g/dl (14.0-18.0); Imm Gran Abs Auto 0.02 X10*3/uL (0.00-0.03); Imm Gran Pct Auto 0.3 % (0.0-0.4); Lymphocytes Absolute Auto 1.0 X10*3/uL (1.2-4.9); Mean Corpuscular HGB Conc 33.0 g/dl (31.0-36.0); Mean Corpuscular Hemoglobin 31.4 pg (27.0-33.0); Mean Corpuscular Volume 95.3 fL (80.0-98.0); NRBC Abs Auto 0.000 X10*3/uL (0.0-0.012); NRBC Pct Auto 0.0 /100WBC (0.0-0.2); Platelet Count 190 X10*3/uL (160-400); Red Blood Count 4.04 X10*6/uL (4.60-5.80); White Blood Count 5.8 X10*3/uL (4.8-10.8)
[2025-08-18 09:54] LABS: Anion Gap 10 (12-20); Blood Urea Nitrogen 14 mg/dL (9-16); Calcium 9.6 mg/dL (8.4-10.2); Carbon Dioxide 28 mmol/L (22-29); Chloride 105 mmol/L (96-108); Creatinine Clr Calc Pharmacy 84.7; Estimated Glomerular Filt Rate > 60; INTERNATIONAL NORM RATIO 1.1 (0.9-1.1); Potassium 4.3 mmol/L (3.3-5.1); Prothrombin Time 13.7 SEC (11.2-13.5); Sodium 139 mmol/L (135-145)
[2025-08-18 14:07] LABS: CSF Other Cells % 11 %; Lymphocytes CSF 34 %; Red Blood Cell CSF 1 MM*3; White Blood Cell CSF 5 MM*3
== END 2025-08-18 14:00 | disposition home or self-care (01) ==
PROVIDERS: Radiology Diagnostic Radiology; PCP Internal Medicine; Visit Provider Psychiatry & Neurology Neurology
PROC: 009U3ZZ Drainage of Spinal Canal, Percutaneous Approach (ICD-10-PCS; CPT 62270; principal; 2025-08-18 11:00)
DX: R41.89 Other symptoms and signs involving cognitive functions and awareness (principal); F03.90 Unspecified dementia, unspecified severity, without behavioral disturbance, psychotic disturbance, mood disturbance, and anxiety
CPT/HCPCS: 36415; 62328; 80048; 82234; 82945; 84157; 84393; 84394; 85025; 85610; 87015; 87070; 87205; 89051; J2003

== ENCOUNTER → 2025-08-18 11:10 | Outpatient (BNV) | payer OTHER, SELFPAY | PROVIDERS: PCP Internal Medicine; Visit Provider Radiology Diagnostic Radiology | DX: G31.84 Mild cognitive impairment of uncertain or unknown etiology (principal) | CPT/HCPCS: 62328 ==

== ENCOUNTER 2025-08-19 07:00 | Outpatient (REF) | payer OTHER, SELFPAY ==
--- OUTSIDE RECORDS SUMMARY | 2025-08-19 07:04 | XMS_ITS | Encounter Summary ---
Author Organization [facility] Address [address] [place] [phone] Phone Care Team Providers Care Drying Machine Tender Name Role Phone Pcp, Unknown Primary Care Provider Unavailabl e Reason for Referral * Consultation (Routine) - New Request Specialty Diagnoses / Procedures Referred By Contac t Referred To Contact Neurology Self-Referred, Patient Referral ID Status Reason Start Date Expiration Date V isits Requested Visits Authorized [id number] New Request 06/30/2025 06/30/2026 1 1 Encounter Details Date Type Department Care Team (Late st Contact Info) Description 06/30/2025 Transcribe Orders [facility] Access Center - Virtual Department [address] [place] [phone] Jess [email or web address] Social History Tobacco Use Types Packs/Day [...] Description 01/03/2026 3:00 PM EDT Office Visit [facility] Department of Neurology [address] [place] [address] Dena Kim PA-C [address] [place] [address] [email or web address] Scheduled Referrals Name Type Priority Associated Diagnoses Order Schedule Ambulatory referral to [facility] Neurology - Employed Practices Outpatient Referral Routine Ordered: 06/30/2025 documented as of this encounter Visit Diagnoses Not on filedocumented in this encounter Care Teams Drying Machine Tender Relationship Specialty Start Date End Date Pcp, Unknown PCP - General 06/30/25 documented as of this encounter Additional Source Comments The information contained in this document represents components of the legal health record. It is not the complete legal health record.[facility]
--- OUTSIDE RECORDS SUMMARY | 2025-08-19 07:04 | XMS_ITS | Clinical Summary ---
Author Organization [facility] Address [address] [facility] [address] [place] [address] Phone Care Team Providers Care Associate Account Executive Name Role Phone Pcp, Unknown Primary Care Provider Unavailabl e Encounters Date Type Department Care Team Description 06/30/2025 Transcribe Orders [facility] - Virtual Department [address] [place] [address] Jess Guadarrama from Last 3 Months Social [...] Description 01/03/2026 3:00 PM EDT Office Visit [facility] Department of Neurology [address] [place] [address] Dena Kim PAMyeshaC [address] [place] [address] [email or web address] Health Maintenance Due Date Last Done Comments [...] topic Medical Devices Not on file Insurance [employer] TOTAL CHOICE INDEMNITY [employer] TOTAL CHOICE INDEMNITY [facility] TOTAL CHOICE INDEMNITY [facility] TOTAL CHOICE INDEMNITY [facility] TOTAL CHOICE INDEMNITY [facility] TOTAL CHOICE INDEMNITY Care Teams Associate Account Executive Relationship Specialty Start Date End Date Pcp, Unknown PCP - General 06/30/25 Additional Source Comments The information contained in this document represents components of the legal health record. It is not the complete legal health record.[facility]
[2025-08-19 08:32] LABS: PSA,Total (Free>4and<10) 5.29 ng/mL (0.00-4.00)
== END 2025-08-19 07:01 | disposition home or self-care (01) ==
LOC: HO.LAB 07:00
PROVIDERS: Absent Provider Urology; PCP Internal Medicine; Visit Provider Psychiatry & Neurology Neurology
DX: R33.9 Retention of urine, unspecified (principal); Z12.5 Encounter for screening for malignant neoplasm of prostate
CPT/HCPCS: 36415; 84153; 84154

== ENCOUNTER 2025-08-30 09:24 | Outpatient (AMB) | payer OTHER, SELFPAY ==
--- OUTSIDE RECORDS SUMMARY | 2025-08-30 09:27 | XMS_ITS | Encounter Summary ---
Author Organization [facility] Address [address] [place] [phone] Phone Care Team Providers Care Pin Worker Name Role Phone Pcp, Unknown Primary Care Provider Unavailabl e Reason for Referral * Consultation (Routine) - New Request Specialty Diagnoses / Procedures Referred By Contac t Referred To Contact Neurology Self-Referred, Patient Referral ID Status Reason Start Date Expiration Date V isits Requested Visits Authorized [id number] New Request 06/30/2025 06/30/2026 1 1 Encounter Details Date Type Department Care Team (Late st Contact Info) Description 06/30/2025 Transcribe Orders [facility] Access Center - Virtual Department [address] [place] [id number] [email or web address] Social History Tobacco Use Types Packs/Day Years [...] Description 01/03/2026 3:00 PM EDT Office Visit [facility] Neurology Cognitive and Behavioral Program [address] [place] [address] Dena Kim PA-C [address] [place] [address] [email or web address] Scheduled Referrals Name Type Priority Associated Diagnoses Order Schedule Ambulatory referral to [facility] Neurology - Employed Practices Outpatient Referral Routine Ordered: 06/30/2025 documented as of this encounter Visit Diagnoses Not on filedocumented in this encounter Care Teams Pin Worker Relationship Specialty Start Date End Date Pcp, Unknown PCP - General 06/30/25 documented as of this encounter Additional Source Comments The information contained in this document represents components of the legal health record. It is not the complete legal health record.[facility]
--- OUTSIDE RECORDS SUMMARY | 2025-08-30 09:27 | XMS_ITS | Clinical Summary ---
Author Organization [facility] Address [address] [facility] [address] [place] [phone] Phone Care Team Providers Care Stock Feeder Name Role Phone Pcp, Unknown Primary Care Provider Unavailabl e Encounters Date Type Department Care Team Description 06/30/2025 Transcribe Orders [facility] - Virtual Department [address] [place] [address] Jess Guadarrama from Last 3 Months Social [...] Description 01/03/2026 3:00 PM EDT Office Visit [facility] [address] [place] [address] Dena Kim PAMyeshaC [address] [place] [address] [email or web address] Health Maintenance Due Date Last Done Comments [...] 12/03/2011 INFLUENZA VACCINE (#1) 2025 COVID-19 VACCINE ( - 2024-2 6 season) 2025 RSV VACCINE [...] topic Medical Devices Not on file Insurance [employer] TOTAL CHOICE INDEMNITY [employer] TOTAL CHOICE IN[facility]MNITY [facility] TOTAL CHOICE [facility]MNITY [facility] TOTAL CHOICE INDEMNITY [facility] TOTAL CHOICE INDEMNITY [facility] TOTAL CHOICE INDEMNITY Care Teams Stock Feeder Relationship Specialty Start Date End Date Pcp, Unknown PCP - General 06/30/25 Additional Source Comments The information contained in this document represents components of the legal health record. It is not the complete legal health record.[facility]
--- NOTE | 2025-08-30 09:31 | A.OFFVIS_ITS ---
Intake Visit Reasons: Cystoscopy/Voiding Trial(set) Intake Note: Reason for Visit: Cystoscopy/Voiding Trial Urology Meds: Terazosin Blood Thinners: Aspirin Labs: Total PSA: 5.29 Free PSA: 1.2 %Free PSA: 22 (08/19/2025) Imaging: None Last PVR: 999ml PVR:378ML Catheter Placed:08/17/2025 URO G-HD Cystoscope LOT [id number] EXP 02/14/2028 Medical Office Specialist Required: No Swing Frame Grinder Operator: Swing Frame Grinder Operator Present Accompanied by: Family/Other Allergies Seasonal Allergies Allergy (Verified 08/30/25 09:38) Unknown Penicillins Adverse Reaction (Unknown, Verified 08/30/25 09:38) unknown HPI Comments Details: Henrique is a pleasant male. He is a patient Dr. Fang. 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 [place] Add dutasteride Lower urinary tract symptoms Current medications include terazosin 5 mg Seen August 2022 for urinary retention 800 cc and Nieves catheter placement, imaging showed enlarged prostate PSA 11/25 2.1, 06/30 14, 06/30 3.6 2nd episode of retention August 2025 Prostatitis 06/30 with significant PSA elevation Responded to 2 weeks Levaquin [facility] Medical History Word finding difficulty Witnessed apneic spells Snoring Cognitive impairment Memory loss Urinary retention BPH (benign prostatic hyperplasia) Elevated cholesterol Diverticulosis HTN (hypertension) Thrush, oral Asthma KARLI on CPAP Obesity (BMI 30-39.9) Surgical History History of colonoscopy with polypectomy (12/23/22) H/O colonoscopy Family History Father Stroke Mother Smoker COPD (chronic obstructive pulmonary disease) Social History Housing: House Alcohol intake: current Alcohol intake frequency: holidays/special occasions only Patient Tobacco Use Status: Never used Tobacco service: No Current occupational status: employed Cognitive needs: No Hearing needs: No Vision needs: Yes (rx glasses) Review of Systems Const Denies chills and Denies fever(s) Card Reports no additional complaints and Denies syncope Resp Denies cough GI Denies abdominal pain and Denies heartburn Reports as per HPI and Denies change in libido Neuro Denies syncope Psych Denies change in libido Endo Denies change in libido Physical Exam Const General: cooperative, healthy appearing, comfortable and no acute distress Orientation/consciousness: patient oriented x3 HEENT Face and sinus: Yes normal facial exam Mouth: moist mucous membranes Neck Neck: Yes normal visual inspection, Yes full ROM and Yes trachea midline Chest Chest palpation & inspection: normal inspection of the chest Resp Effort & Inspection: normal respiratory effort, able to speak in complete sentences and no respiratory distress GI Inspection: Yes normal to inspection Back/Spine/Pelvis Cervical Spine: normal cervical lordosis Thoracic/Lumbar Spine: thoracic and lumbar spine normal to inspection Skin General skin exam: no rashes or lesions noted Neuro General: patient oriented x3, gait normal, tone normal and moves all extremities Extrem General: Yes normal to inspection and Yes capillary refill normal Office Procedures Bladder/Catheter Procedure Details: Patient not able to void over 120mls, inserted 18fr coude nieves with 10ml balloon blue cap, patient tolerated well. Drained 600mls from bladder via catheter. Patient will have one more VT in [address] Thayer [id number] Temporary Bladder Catheter Procedure code (CPT) selection complete Cystoscopy Consent Discussed risk and benefit or proposed procedure with the patient. Information consent for procedure given to the patient. Discussed technical aspects, risks, benefits and alternatives in full. Addressed all of the patient's questions and concerns regarding the procedure. The patient demonstrated knowledge and understanding. They wish to proceed with this procedure. Preparation The patient was prepped in the usual manner. A lehr operator was present and in the room. Genitalia was prepped with betadine solution in a sterile manner. Lidocaine Jelly 2% was placed into the urethra and 16Fr flexible Olympus cystoscope was inserted into the meatus after adequate lubrication. Procedure Consent confirmed Genitalia prepped and draped using topical antiseptic and lidocaine jelly Clamp placed on penile glans to allow adequate dwell contact time with anesthetic Cystoscopy performed using a sterile disposable Urovue digital 16 Guyanese cystoscope Meatus circumcised Urethra anterior and posterior urethra normal Prostatic Urethra mild hypertrophy May benefit from procedure if required Bladder examination with retroflexion of cystoscope Bladder Orifices normal shape and position Bladder Capacity Normal Trabeculations Grade 0 Cellule Formation None Diverticulum Formation None Mucosal Erythema None Bladder Tumor None Patient tolerated procedure Patient 18fr nieves catheter removed prior to cystoscopy prep. Patient tolerated removal well. [id number] DISPOSABLE SCOPE URO-G FLEXIBLE SCOPE Procedure code (CPT) selection complete Post Void Residual Post Residual Void Post Void Residual (PVR): 378 14439-Elku Void Residual by ultrasound Office Meds lidocaine HCl 2 % mucosal jelly in applicator Performing Provider: Christopher Thayer MD Performing Location: [facility] Administered by: Adi Turner LPN on 08/30/25 09:43 Dose Route Admin Location Dispensed Lot Number Expiration Date [facility] Pole Inspector 10 mL intra-urethral 10 mL nitrofurantoin monohydrate/macrocrystals 100 mg capsule Performing Provider: Christopher Thayer MD Performing Location: [facility] Administered by: Adi Turner LPN on 08/30/25 09:43 Dose Route Admin Location Dispensed Lot Number Expiration Date [place] Pole Inspector 100 mg PO 1 cap Results AMB Urinalysis, Automated UA Leukoctes 70 Richard/uL Last Edit by MARIA ELENA Muse on 08/30/25 09:39 UA Nitrite Negative Last Edit by MARIA ELENA Muse on 08/30/25 09:39 UA Urobilinogen 0.2 mg/dL Last Edit by MARIA ELENA Muse on 08/30/25 09:3 9 UA Protein 0 mg/dL Last Edit by MARIA ELENA Muse on 08/30/25 09:39 UA pH 6.0 Last Edit by MARIA ELENA Muse on 08/30/25 09:39 UA Blood 80 Jhon/uL Last Edit by MARIA ELENA Muse on 08/30/25 09:39 UA Specific [place] 1.005 Last Edit by MARIA ELENA Muse on 08/30/25 09: 39 UA Ketone Negative Last Edit by MARIA ELENA Muse on 08/30/25 09:39 UA Bilirubin 0 mg/dL Last Edit by MARIA ELENA Muse on 08/30/25 09:39 UA Glucose 0 mg/dL Last Edit by MARIA ELENA Muse on 08/30/25 09:39 Results Reviewed Results Reviewed: Laboratory Last Values Urine pH (Auto) 6.0 08/30/25 09:31 Specific [place] (Auto) 1.005 08/30/25 09:31 Urine Protein (Auto) 0 mg/dL 08/30/25 09:31 Glucose (UA)(Auto) 0 mg/dL 08/30/25 09:31 Urine Ketones (Auto) Negative 08/30/25 09:31 Urine Blood (Auto) 80 Jhon/uL 08/30/25 09:31 Urine Nitrite (Auto) Negative 08/30/25 09:31 Urine Bilirubin (Auto) 0 mg/dL 08/30/25 09:31 Urine Urobilinogen (Auto) 0.2 mg/dL 08/30/25 09:31 Leukocyte Esterase (Auto) 70 Richard/uL 08/30/25 09:31 Assessment & Plan Assessment & Plan (1) Urinary retention with incomplete bladder emptying: Code(s): R33.9 - Retention of urine, unspecified Category: Medical Plan Start dutasteride Three-week follow-up voiding trial Orders: Orders AMB Urinalysis Automated 08/30/25 Z13.9 - Encounter for screening, unspecified AMB Post Void Residual by ultrasound 08/30/25 R33.9 - Retention of urine, unspecified AMB Bladder/Catheter Procedure 08/30/25 R33.9 - Retention of urine, unspecified AMB Cystoscopy 08/30/25 R33.9 - Retention of urine, unspecified Medications: New dutasteride 0.5 mg PO DAILY 90 caps 1RF 90 days R33.9 - Retention of urine, unspecified Patient Instructions: This note is constructed using voice recognition software. While every effort has been made to ensure accuracy inspector watch parts errors may have been included. Imaging studies, laboratory and physical exam results were discussed and reviewed in detail. No major barriers to patient understanding were identified. An opportunity to ask questions regarding the treatment plan was provided. All questions were answered. The patient expressed understanding and agreement with the above treatment plan. The patient is aware they should contact our office by phone for worsening of their current condition or the appearance of new urologic symptoms. Compliance is encouraged with any medications and followup testing that is ordered. It is a privilege to participate in the urologic care of your patient. If you have any questions or concerns regarding treatment for the above conditions, or other urologic issues, please do not hesitate to contact me. The office telephone contact is [phone]. Sincerely, Dr Christopher Thayer MD, [facility] - Urology Compassionate Specialist Care for the Genitourinary System Coding Level of Care Code Est Pt Level 4 (48005) Add On Problem Visit Only Diagnoses Urinary retention with incomplete bladder emptying R33.9 CPT Codes Bladder/Catheter Procedure - CPT: 49520-Ujdidt Temporary Bladder Catheter ([id number]) Cystoscopy - CPT: 69634-Cgtaxgpndi ([id number]) Post Residual Void - PVR CPT Code: 62349-Iivo Void Residual by ultrasound ([id number])
== END 2025-08-30 11:36 | disposition home or self-care (01) ==
LOC: HO.HUSH 09:24
PROVIDERS: PCP Internal Medicine; Visit Provider Urology
DX: Z13.9 Encounter for screening, unspecified (principal); R33.9 Retention of urine, unspecified
CPT/HCPCS: 52000

== ENCOUNTER → 2025-08-30 09:24 | Outpatient (BNVA) | payer OTHER, SELFPAY | PROVIDERS: PCP Internal Medicine; Visit Provider Urology | DX: N40.1 Benign prostatic hyperplasia with lower urinary tract symptoms (principal); R33.8 Other retention of urine | CPT/HCPCS: 51798; 52000; 81003 ==